=== PATIENT | female | born 1950 | race Hispanic/Latino ===

== ENCOUNTER 2018-07-24 11:49 | Emergency (ER) | payer BC, OTHER ==
--- NOTE | 2018-07-24 12:47 | RAD REPORT ---
EXAM DESCRIPTION: CT - Head Brain Wo Cont - 07/24/2018 12:32 pm CLINICAL HISTORY: general weakness Drowsiness COMPARISON: No comparisons TECHNIQUE: All CT scans are performed using dose optimization technique as appropriate and may inclu de automated exposure control or mA/KV adjustment according to patient size. FINDINGS: No intracranial hemorrhage, hydrocephalus or extra-axial fluid collection.Mild generalized brain atrophy is present with mild periventricular and deep white matter chronic microvascular ische maura changes.No areas of brain edema or evidence of midline shift. The paranasal sinuses and mastoids are clear. The calvarium is intact. Vertebral arteries are calcifi ed. IMPRESSION: No acute intracranial abnormality.
--- NOTE | 2018-07-24 12:57 | RAD REPORT ---
EXAM DESCRIPTION: RAD - Chest Single View - 07/24/2018 12:52 pm CLINICAL HISTORY: general weakness Chest pain. COMPARISON: Chest Single View dated 09/09/2017; Chest Single View dated 09/06/2017; Chest Single Vie w dated 09/04/2017; Chest Single View dated 03/16/2016 FINDINGS: Portable technique limits examination quality. The lungs are grossly clear. The heart is normal in size. No displaced fractures. IMPRESSION: No acute intrathoracic process suspected.
[2018-07-24 13:25] LABS: Absolute Lymphocytes (CBC) 3.3 K/uL (0.7-4.9); Absolute Monocytes 0.8 K/uL (0.1-1.3); Absolute Neutrophil 4.5 K/uL (1.8-8.0); Basophils % 0.7 % (0-1.3); Eosinophils % 4.3 % (0-4.4); Hematocrit 36.4 % (36.0-45.0); Lymphocytes % 36.3 % (15.3-44.8); MCH 32.3 pg (27.0-35.0); MCV 94.5 fL (80-100); MPV 7.7 fL (7.6-11.3); Monocytes % 8.5 % (3.3-12.3); RBC Red Blood Cell Count 3.85 M/uL (3.86-4.86)
[2018-07-24 13:29] LABS: Protime INR 1.03
[2018-07-24 13:57] LABS: ALT/SGPT 26 U/L (12-78); AST/SGOT 24 U/L (15-37); Albumin 3.4 g/dL (3.4-5.0); Alkaline Phosphatase 155 U/L (45-117); BUN Blood Urea Nitrogen 41 mg/dL (7-18); Bicarbonate 22 mmol/L (21-32); Bilirubin Direct 0.1 mg/dL (0-0.2); Bilirubin Total 0.4 mg/dL (0.2-1.0); Creatine Phosphokinase 100 U/L (26-192); Glucose Level 123 mg/dL (74-106); Magnesium 2.5 mg/dL (1.8-2.4); NT PRO-BNP 570 pg/mL (<125); Potassium 5.1 mmol/L (3.5-5.1); Protein, Total 8.4 g/dL (6.4-8.2); Sodium Level 140 mmol/L (136-145); Troponin (Emerg Dept Use Only) < 0.02 ng/mL (0.0-0.045)
[2018-07-24] MEDS ORDERED: NA CHLORIDE 0.9% 1,000 ML ONE (15:25)
[2018-07-24 15:44] LABS: Urine Blood NEGATIVE (NEG); Urine Glucose NEGATIVE (NEG); Urine Protein 2+ (NEG); Urine pH 5.5 (5.0-7.0)
[2018-07-24 17:20] LABS: Urine Bacteria <20 /HPF (<20); Urine Culture Reflex Order NOT NEEDED; Urine RBC <5 /HPF (NONE SEEN)
--- NOTE | 2018-07-24 19:11 | EKG ---
Test Date: 2018-07-24 Test Time: 12:46:04 Content Manager: BEV MEASUREMENT RESULTS: Intervals: Rate: 86 NV: 154 QRSD: 78 QT: 376 QTc: 449 [place]: P: 45 NV: 154 QRS: -16 T: 68 INTERPRETIVE STATEMENTS: Normal sinus rhythm Minimal voltage criteria for LVH, may be normal variant Borderline ECG Compared to ECG 09/04/2017 12:33:21 Left ventricular hypertrophy now present Sinus tachycardia no longer present Ventricular premature complex(es) no longer present ST (T wave) deviation no longer present Electronically Signed On 07-24-18 19:10:00 CDT by Horace Walker
--- NOTE | 2018-07-24 19:33 | RAD REPORT ---
EXAM DESCRIPTION: MRI - Brain Wo Cont - 07/24/2018 6:56 pm CLINICAL HISTORY: Weakness, unsteady gait, stroke-like symptoms COMPARISON: CT head same date TECHNIQUE: Sagittal T1-weighted images were obtained along with axial PD, heavily T2-weighted and T2 -FLAIR images. Axial DWI and ADC mapping sequences were also obtained along with coronal heavily T2-w eighted images. FINDINGS: No intracranial hemorrhage, mass or acute infarction. There is no edema or shift of midlin e structures. Mild atrophy and mild chronic ischemic changes are present. Ventricular size is in prop ortion to volume loss. Rios-matter/white matter junction is preserved. Signal voids are seen as a nor mal finding in the major intracranial vessels. No globe or orbital content abnormality. Mastoid air cells and paranasal sinuses are clear. IMPRESSION: No acute infarction. No acute intracranial finding. Mild atrophy and chronic ischemic change.
--- NOTE | 2018-07-24 20:06 | ER ---
Nurse's Notes [facility] Name: Bettina Muniz Age: 68 yrs Sex: Female : 1950 Arrival Date: 07/24/2018 Time: 11:51 Bed 8 Private MD: Out, [facility] Diagnosis: Dizziness Presentation: 07/24 11:54 Presenting complaint: Child states: woke up this morning diaphoretic, and dizzy. sv Daughter reports that she is also having generalized weakness. Transition of care: patient was not received from another setting of care. Onset of symptoms was July 24, 2018. Care prior to arrival: None. 11:54 Method Of Arrival: Wheelchair sv 11:54 Acuity: DHRUV 3 sv 12:00 Risk Assessment: Do you want to hurt yourself or someone else? Patient reports no hb desire to harm self or others. Initial Sepsis Screen: Does the patient meet any 2 criteria? No. Patient's initial sepsis screen is negative. Does the patient have a suspected source of infection? No. Patient's initial sepsis screen is negative. Historical: - Allergies: 11:55 No Known Allergies; sv - PMHx: 11:55 Diabetes - NIDDM; diabetic foot ulcer; Hypertension; sv - PSHx: 11:55 Cholecystectomy; Appendectomy; toe amputation; sv - Immunization history:: Adult Immunizations up to date. - Social history:: Smoking status: Patient/guardian denies using tobacco. - Ebola Screening: : No symptoms or risks identified at this time. Screenin:30 Abuse screen: Denies threats or abuse. Denies injuries from another. Nutritional hb screening: No deficits noted. Tuberculosis screening: No symptoms or risk factors identified. Fall Risk Total Max Fall Scale indicates High Risk Score (45 or more points). Fall prevention measures have been instituted. Side Rails Up X 2 Frequent Obs/Assessments Occuring Family Present and informed to notify staff if the need to leave the bedside As available patient and family educated on Fall Prevention Program and Strategies. Assessment: 12:32 General: Appears in no apparent distress. Behavior is calm, cooperative. Pain: Denies hb pain. Neuro: Level of Consciousness is awake, alert, obeys commands, Oriented to person, place, time, situation, Travel Med Surg Rn are equal bilaterally Moves all extremities. Full function Gait is unsteady, Speech is normal, Facial symmetry appears normal, Pupils are PERRLA, Intact. Cardiovascular: Heart tones S1 S2 present Capillary refill < 3 seconds is > 3 seconds Patient's skin is warm and dry. Respiratory: Airway is patent Trachea midline Respiratory effort is even, unlabored, Respiratory pattern is regular, symmetrical, Breath sounds are clear bilaterally. GI: No signs and/or symptoms were reported involving the gastrointestinal system. : No signs and/or symptoms were reported regarding the genitourinary system. EENT: No signs and/or symptoms were reported regarding the EENT system. Derm: No signs and/or symptoms reported regarding the dermatologic system. Skin is intact, is healthy with good turgor. Musculoskeletal: No signs and/or symptoms reported regarding the musculoskeletal system. 12:48 Patient has been NPO before screening. The patient is alert, and able to follow commands. The patient does not exhibit slurred or garbled speech. The patient is not exhibiting difficulty speaking. The patient does not exhibit difficulty understanding words. The patient is able to swallow own secretions with no drooling or need for suction. Patient tolerated one teaspoon of water. No drooling, immediate coughing, gurgling, or clearing of the throat was noted. The patient tolerated 90mL of water. No drooling, immediate coughing, gurgling, or clearing of the throat was noted. The patient passed the bedside swallow screening. Oral medications may be given as ordered. Contact Physician for further diet orders. Provider notified of bedside swallow screening results: Octavio DOCKERY. 13:30 Reassessment: Patient appears in no apparent distress at this time. No changes from hb previously documented assessment. Patient and/or family updated on plan of care and expected duration. Pain level reassessed. Patient is alert, oriented x 3, equal unlabored respirations, skin warm/dry/pink. 13:44 Reassessment: Daughter Mitra [phone]. 14:30 Reassessment: Patient appears in no apparent distress at this time. No changes from hb previously documented assessment. Patient and/or family updated on plan of care and expected duration. Pain level reassessed. Patient is alert, oriented x 3, equal unlabored respirations, skin warm/dry/pink. 15:30 Reassessment: Patient appears in no apparent distress at this time. No changes from hb previously documented assessment. Patient and/or family updated on plan of care and expected duration. Pain level reassessed. Patient is alert, oriented x 3, equal unlabored respirations, skin warm/dry/pink. 16:30 Reassessment: Patient appears in no apparent distress at this time. No changes from hb previously documented assessment. Patient and/or family updated on plan of care and expected duration. Pain level reassessed. Patient is alert, oriented x 3, equal unlabored respirations, skin warm/dry/pink. 17:30 Reassessment: Patient appears in no apparent distress at this time. No changes from hb previously documented assessment. Patient and/or family updated on plan of care and expected duration. Pain level reassessed. Patient is alert, oriented x 3, equal unlabored respirations, skin warm/dry/pink. 18:30 Reassessment: Patient appears in no apparent distress at this time. No changes from hb previously documented assessment. Patient and/or family updated on plan of care and expected duration. Pain level reassessed. Patient is alert, oriented x 3, equal unlabored respirations, skin warm/dry/pink. Vital Signs: 11:55 BP 154 / 75; Pulse 92; Resp 18; Temp 97.5; Pulse Ox 97% ; Weight 83.91 kg; Height 5 ft. sv 2 in. (157.48 cm); 15:20 BP 159 / 79 Supine; Pulse 80; Pulse Ox 99% on R/A; sg 15:28 BP 159 / 82 Standing; Pulse 82; Pulse Ox 99% on R/A; sg 16:30 BP 156 / 76; Pulse 76; Resp 15; Pulse Ox 100% on R/A; hb 17:30 BP 146 / 68; Pulse 78; Resp 16; Pulse Ox 100% ; hb 19:52 BP 156 / 74; Pulse 80; Resp 16; Temp 98.2(O); Pulse Ox 100% on R/A; Pain 0/10; ak1 11:55 Body Mass Index 33.84 (83.91 kg, 157.48 cm) sv 19:52 pt is hungry and requesting tacos per family at bedside. ak1 NIH Stroke Scale Scores: 12:30 NIHSS Score: 0 hb ED Course: 11:51 Patient arrived in ED. sb2 11:51 Out, of [facility] is Private Physician. sb2 11:55 Triage completed. sv 11:56 Arm band placed on right wrist. sv 12:01 Octavio Deluna PA is PHCP. cp 12:01 Tiff De Paz MD is Attending Physician. cp 12:07 Juan Mehta, RN is Primary Nurse. sg 12:30 Patient has correct armband on for positive identification. Placed in gown. Bed in low hb position. Call light in reach. Side rails up X2. 12:31 CT completed. Patient tolerated procedure well. Patient moved to CT via stretcher. jg6 Patient moved back from CT. 12:33 CT Head Brain wo Cont In Process Unspecified. EDMS 12:50 X-ray completed. Portable x-ray completed in exam room. Patient tolerated procedure la2 well. 12:52 XRAY Chest (1 view) In Process Unspecified. EDMS 12:58 EKG done, by registered respiratory technician. reviewed by Octavio DOCKERY. at1 13:14 Inserted saline lock: 20 gauge in right hand, using aseptic technique. em1 13:15 Initial lab(s) drawn, by laboratory associate, sent to lab. em1 18:10 Patient moved to MRI via wheelchair. ka 18:26 PHCP role handed off by Octavio Deluna PA jr8 18:26 Indio Sanchez PA is PHCP. jr8 18:50 MRI - Brain Wo Cont In Process Unspecified. EDMS 18:55 MRI completed. Patient tolerated well. Patient moved back from MRI. ka 19:39 No provider procedures requiring assistance completed. ak1 20:05 Joey Cox MD is Referral Physician. jr8 20:18 Primary Nurse role handed off by Juan Mehta, SONNY rg2 20:18 Cinthya Colvin, SONNY is Primary Nurse. ak1 20:19 IV discontinued, intact, bleeding controlled, No redness/swelling at site. Pressure ak1 dressing applied. Administered Medications: 15:10 Drug: NS 0.9% 250 ml Route: IV; Rate: bolus; Site: right hand; sg 20:06 Follow up: IV Status: Completed infusion ak1 15:28 Drug: NS 0.9% 1000 ml Route: IV; Rate: 100 ml/hr; Site: right hand; sg 20:06 Follow up: IV Status: Completed infusion ak1 Point of Care Testing: Blood Glucose: 12:00 Blood Glucose: 141 mg/dL; sv Ranges: Outcome: 20:05 Discharge ordered by MD. mendoza 20:05 Condition: improved ak1 20:19 Discharged to home via wheelchair, with family. ak1 20:19 Discharge instructions given to patient, family, Instructed on discharge instructions, follow up and referral plans. no drinking with medication, no driving heavy equipment, medication usage, Demonstrated understanding of instructions, follow-up care, medications, Prescriptions given X 1. 20:20 Patient left the ED. ak1 NIH Stroke Scale - NIH Stroke Score Date: 07/24/2018 Time: 12:30 Total Score = 0 1a. Level of Consciousness (LOC) - 0(Alert) 1b. Level of Consciousness (LOC) (Year \T\ Age) - 0(Both) 1c. LOC Commands (Open \T\ Closes Eyes/Sludge Filtration Attendant) - 0(Both) 2. Best Gaze (Lateral Gaze Paresis) - 0(Normal) 3. Visual Field Loss - 0(No visual loss) 4. Facial Palsy - 0(Normal) 5a. Left Arm: Motor (10-second hold) - 0(No drift) 5b. Right Arm: Motor (10-second hold) - 0(No drift) 6a. Left Leg: Motor (5-second hold - always test supine) - 0(No drift) 6b. Right Leg: Motor (5-second hold - always test supine) - 0(No drift) 7. Limb Ataxia (finger/nose \T\ heel/peraza - test with eyes open) - 0(Absent) 8. Sensory Loss (pinprick arms/legs/face) - 0(Normal) 9. Best Language: Aphasia (description/naming/reading) - 0(No aphasia) 10. Dysarthria (speech clarity - read or repeat words) - 0(Normal) 11. Extinction and Inattention (visual/tactile/auditory/spatial/personal) - 0(No abnormality) Initials: hb Signatures: Dispatcher [employer] EDAdin Tim2 Marcelina Call RN RN sv Gay, Steven, RN RN sg Martinez, Eric em1 Indio Sanchez PA PA jr8 Francisca Dawson, area captain EKG Tat1 Cinthya Colvin RN RN ak1 Octavio Deluna PA PA cp Aguilera, Katelyn ka Baxter, Heather, RN RN hb Margareth Brunner la2 Julianne Barrios sb2 Becky Sol jg6 Corrections: (The following items were deleted from the chart) 15: 15:17 Reassessment: hb hb 15:32 15:20 BP 159 / 82 Standing; Pulse 82bpm; Pulse Ox 99% RA; sg sg 15:32 15:28 BP 159 / 79; Pulse 80bpm; Pulse Ox 99% RA; sg sg
--- NOTE | 2018-07-24 20:06 | EDPHYS ---
Physician Documentation [facility] Name: Bettina Muniz Age: 68 yrs Sex: Female : 1950 Arrival Date: 07/24/2018 Time: 11:51 Bed 8 Private MD: Out, [facility] ED Physician Tiff De Paz HPI: 07/24 12:18 This 68 yrs old Female presents to ER via Wheelchair with complaints of cp General Weakness. 12:18 The patient presents to the emergency department with weakness of the entire body, cp generalized weakness. Onset: The symptoms/episode began/occurred this morning. 12:20 Associated signs and symptoms: Pertinent positives: dizziness, elevated blood glucose. cp Historical: - Allergies: 11:55 No Known Allergies; sv - PMHx: 11:55 Diabetes - NIDDM; diabetic foot ulcer; Hypertension; sv - PSHx: 11:55 Cholecystectomy; Appendectomy; toe amputation; sv - Immunization history:: Adult Immunizations up to date. - Social history:: Smoking status: Patient/guardian denies using tobacco. - Ebola Screening: : No symptoms or risks identified at this time. ROS: 12:25 Constitutional: Positive for chills, Negative for body aches, fever, poor PO intake. cp 12:25 Eyes: Negative for injury, pain, redness, and discharge. cp Exam: 12:28 Constitutional: The patient appears in no acute distress, alert, awake, comfortable, cp non-diaphoretic, non-toxic, well developed, well nourished. 12:28 Head/Face: Normocephalic, atraumatic. cp 12:28 Eyes: Periorbital structures: appear normal, Pupils: equal, round, and reactive to light and accomodation, Extraocular movements: intact throughout, Conjunctiva: normal, no exudate, no injection, Sclera: no appreciated abnormality, Lids and lashes: appear normal, bilaterally. 12:28 ENT: External ear(s): are unremarkable, Ear canal(s): are normal, clear, TM's: bulging, is not appreciated, bilaterally, erythema, is not appreciated, bilaterally, Nose: is normal, Mouth: Lips: moist, Oral mucosa: pink and intact, moist, Posterior pharynx: is normal, airway is patent, no erythema, no exudate. 12:28 Neck: ROM/movement: is normal, is supple, without pain, no range of motions limitations, no meningismus, no nuchal rigidity. 12:28 Chest/axilla: Inspection: normal, Palpation: is normal, no crepitus, no tenderness. 12:28 Cardiovascular: Rate: normal, Rhythm: regular, Pulses: Pulses are 2+ in right radial artery and left radial artery. Heart sounds: murmur, not appreciated, rub, not appreciated, gallop, not appreciated, Edema: is not appreciated. 12:28 Respiratory: the patient does not display signs of respiratory distress, Respirations: normal, no use of accessory muscles, no retractions, no splinting, no tachypnea, labored breathing, is not present, Breath sounds: are clear throughout, no decreased breath sounds, no stridor, no wheezing. 12:28 Abdomen/GI: Inspection: abdomen appears normal, Bowel sounds: active, all quadrants, Palpation: abdomen is soft and non-tender, in all quadrants. 12:28 Back: pain, is absent, ROM is normal. 12:28 Musculoskeletal/extremity: Exam is negative for calf tenderness, decreased range of motion, injury. 12:28 Skin: cellulitis, is not appreciated, no rash present. 12:28 Neuro: Orientation: to person, place \T\ time. Mentation: lucid, able to follow commands, Cerebellar function: Romberg testing is negative, normal finger to nose testing, Motor: moves all fours, general weakness w/o focal deficits, Sensation: no obvious gross deficits. 12:54 ECG was reviewed by the Attending Physician. cp Vital Signs: 11:55 BP 154 / 75; Pulse 92; Resp 18; Temp 97.5; Pulse Ox 97% ; Weight 83.91 kg; Height 5 ft. sv 2 in. (157.48 cm); 15:20 BP 159 / 79 Supine; Pulse 80; Pulse Ox 99% on R/A; sg 15:28 BP 159 / 82 Standing; Pulse 82; Pulse Ox 99% on R/A; sg 16:30 BP 156 / 76; Pulse 76; Resp 15; Pulse Ox 100% on R/A; hb 17:30 BP 146 / 68; Pulse 78; Resp 16; Pulse Ox 100% ; hb 19:52 BP 156 / 74; Pulse 80; Resp 16; Temp 98.2(O); Pulse Ox 100% on R/A; Pain 0/10; ak1 11:55 Body Mass Index 33.84 (83.91 kg, 157.48 cm) sv 19:52 pt is hungry and requesting tacos per family at bedside. ak1 NIH Stroke Scale Scores: 12:30 NIHSS Score: 0 hb MDM: 12:11 Patient medically screened. cp 15:42 Physician consultation: Devika Lozano MD was called at 15:35, regarding admission, left message on voicemail. 19:44 Data reviewed: vital signs, nurses notes, lab test result(s), EKG, radiologic studies, jr8 CT scan, MRI, plain films. Data interpreted: Pulse oximetry: on room air is 100 %. Interpretation: normal. Counseling: I had a detailed discussion with the patient and/or guardian regarding: the historical points, exam findings, and any diagnostic results supporting the discharge/admit diagnosis, lab results, radiology results, the need for outpatient follow up, a neurologist, to return to the emergency department if symptoms worsen or persist or if there are any questions or concerns that arise at home. 20:03 ED course: Octavio Deluna PA-C spoke with Dr. Lozano earlier. Requested MRI. If no stroke jr8 wants patient to go home. Dr. Lozano talked to [employer] and will have Home Health come and evaluate her tomorrow. MRI is now back. No acute stroke. Patient otherwise hemodynamically stable. Will go home on antivert. If worse to come back for further evaluation . 07/24 12:03 Order name: Glucose, Ancillary Testing; Complete Time: 12:12 EDMS 07/24 12:12 Interpretation: GLUC,ANCIL 141; Reviewed. 07/24 12:20 Order name: Basic Metabolic Panel; Complete Time: 14:36 07/24 14:36 Interpretation: Normal except: CL 113; GLUC 123; BUN 41; GFR 17; CRE 2.70. 07/24 12:20 Order name: CBC with Diff; Complete Time: 13:36 cp 07/24 13:37 Interpretation: Normal except: RBC 3.85. cp 07/24 12:20 Order name: Ckmb; Complete Time: 14:36 cp 07/24 12:20 Order name: CPK; Complete Time: 14:36 07/24 12:20 Order name: LFT's; Complete Time: 14:36 07/24 14:36 Interpretation: Normal except: ALK 155; TP 8.4; GLOB 5.0; A/G 0.7. / 12:20 Order name: Magnesium; Complete Time: 14:36 cp 07/24 12:20 Order name: NT PRO-BNP; Complete Time: 14:36 07/24 14:36 Interpretation: Abnormal: NT PRO-BNP 570. 07/24 12:20 Order name: PT-INR; Complete Time: 13:36 cp 07/24 12:20 Order name: Ptt, Activated; Complete Time: 13:36 07/24 12:20 Order name: Troponin (emerg Dept Use Only); Complete Time: 14:36 07/24 12:20 Order name: XRAY Chest (1 view); Complete Time: 13:36 07/24 13:43 Interpretation: Report review. 07/24 12:20 Order name: Urine Microscopic Only; Complete Time: 17:42 cp 07/24 17:42 Interpretation: Reviewed. 07/24 15:23 Order name: Urine Dipstick--Ancillary (enter results); Complete Time: 17:42 07/24 17:42 Interpretation: Normal except: UPROT 2+. 07/24 12:20 Order name: EKG; Complete Time: 12:21 cp 07/24 12:20 Order name: Cardiac monitoring; Complete Time: 12:27 07/24 12:20 Order name: EKG - Nurse/Tech; Complete Time: 13:15 07/24 12:20 Order name: IV Saline Lock; Complete Time: 13:15 cp 07/24 12:20 Order name: Labs collected and sent; Complete Time: 13:15 07/24 12:20 Order name: O2 Per Protocol; Complete Time: 12:27 07/24 12:20 Order name: O2 Sat Monitoring; Complete Time: 12:27 07/24 12:20 Order name: Urine Dipstick-Ancillary (obtain specimen); Complete Time: 16:56 cp 07/24 12:20 Order name: Orthostatics; Complete Time: 14:54 07/24 12:20 Order name: CT Head Brain wo Cont; Complete Time: 13:36 09/12 13:37 Interpretation: Report reviewed. cp 07/24 16:10 Order name: MRI - Brain Wo Cont; Complete Time: 19:42 cp EC:54 Rate is 86 beats/min. Rhythm is regular. [place] interval is normal. QRS interval is normal. cp QT interval is normal. No ST changes noted. Interpreted by me. Reviewed by me. Administered Medications: 15:10 Drug: NS 0.9% 250 ml Route: IV; Rate: bolus; Site: right hand; sg 20:06 Follow up: IV Status: Completed infusion ak1 15:28 Drug: NS 0.9% 1000 ml Route: IV; Rate: 100 ml/hr; Site: right hand; sg 20:06 Follow up: IV Status: Completed infusion ak1 Point of Care Testing: Blood Glucose: 12:00 Blood Glucose: 141 mg/dL; sv Ranges: Critical Glucose Levels:Adult <50 mg/dl or >400 mg/dl <40 mg/dl or >180 mg/dl Disposition: 07/24/18 20:05 Discharged to Home. Impression: Dizziness. - Condition is Stable. - Discharge Instructions: Dizziness. - Prescriptions for Antivert 25 mg Oral Tablet - take 1 tablet by ORAL route every 8 hours As needed; 20 tablet. - Medication Reconciliation Form, Thank You Letter, Antibiotic Education, Prescription Opioid Use form. - Follow up: Joey Cox MD; When: 2 - 3 days; Reason: Recheck today's complaints, Continuance of care, Re-evaluation by your physician. - Problem is new. - Symptoms have improved. NIH Stroke Scale - NIH Stroke Score Date: 07/24/2018 Time: 12:30 Total Score = 0 1a. Level of Consciousness (LOC) - 0(Alert) 1b. Level of Consciousness (LOC) (Year \T\ Age) - 0(Both) 1c. LOC Commands (Open \T\ Closes Eyes/Atm Mechanic) - 0(Both) 2. Best Gaze (Lateral Gaze Paresis) - 0(Normal) 3. Visual Field Loss - 0(No visual loss) 4. Facial Palsy - 0(Normal) 5a. Left Arm: Motor (10-second hold) - 0(No drift) 5b. Right Arm: Motor (10-second hold) - 0(No drift) 6a. Left Leg: Motor (5-second hold - always test supine) - 0(No drift) 6b. Right Leg: Motor (5-second hold - always test supine) - 0(No drift) 7. Limb Ataxia (finger/nose \T\ heel/peraza - test with eyes open) - 0(Absent) 8. Sensory Loss (pinprick arms/legs/face) - 0(Normal) 9. Best Language: Aphasia (description/naming/reading) - 0(No aphasia) 10. Dysarthria (speech clarity - read or repeat words) - 0(Normal) 11. Extinction and Inattention (visual/tactile/auditory/spatial/personal) - 0(No abnormality) Initials: hb Addendum: 07/28/2018 18:23 Co-signature as Attending Physician, Tiff De Paz MD. ma2 Signatures: Dispatcher [employer] Marcelina Cameron RN Juan Lee RN RN sg Roszak, Josh, PA PA jr8 Cinthya Colvin RN RN ak1 Octavio Deluna PA PA cp Alzahri, Mohammad, MD MD ma2 Corrections: (The following items were deleted from the chart) 07/24 16:56 13:44 [place] ordered. [facility] 20:20 20:05 07/24/2018 20:05 Discharged to Home. Impression: Dizziness. Condition is ak1 Stable. Forms are Medication Reconciliation Form, Thank You Letter, Antibiotic Education, Prescription Opioid Use. Follow up: Joey Cox; When: 2 - 3 days; Reason: Recheck today's complaints, Continuance of care, Re-evaluation by your physician. Problem is new. Symptoms have improved. jr8
[2018-07-24 20:38] VITALS: O2SAT 100
[2018-07-24 20:41] VITALS: BP 156/74; TEMP 98.2
== END 2018-07-24 20:20 | disposition home or self-care (01) ==
LOC: ER 11:49
DX: R42 Dizziness and giddiness (principal); I10 Essential (primary) hypertension
CPT/HCPCS: 36415; 70450; 70551; 71045; 80048; 80076; 82550; 82553; 82962; 83735; 83880; 84484; 85025; 85610; 85730; 93005; J7030; 81003; 81015; 96360; 96361; 96365; 96366; 99284

== ENCOUNTER 2018-10-21 08:58 | Observation (INO) | payer OTHER ==
[2018-10-21 09:30] LABS: Absolute Lymphocytes (CBC) 2.3 K/uL (0.7-4.9); Absolute Monocytes 0.8 K/uL (0.1-1.3); Absolute Neutrophil 3.9 K/uL (1.8-8.0); Basophils % 1.1 % (0-1.3); Eosinophils % 5.7 % (0-4.4); Lymphocytes % 30.1 % (15.3-44.8); MCH 32.7 pg (27.0-35.0); MCV 96.2 fL (80-100); RBC Red Blood Cell Count 3.63 M/uL (3.86-4.86)
[2018-10-21 10:09] LABS: Potassium 4.6 mmol/L (3.5-5.1)
[2018-10-21] MEDS ORDERED: NA CHLORIDE 0.9% 500 ML ONE (11:03)
--- NOTE | 2018-10-21 11:35 | EKG ---
Test Date: 2018-10-21 Test Time: 09:07:52 Locum Tenens: BEV MEASUREMENT RESULTS: Intervals: Rate: 84 MA: 156 QRSD: 82 QT: 394 QTc: 465 Louise: P: 43 MA: 156 QRS: -14 T: 37 INTERPRETIVE STATEMENTS: Normal sinus rhythm Normal ECG No previous ECG available for comparison Electronically Signed On 10-21-18 11:34:14 MANAGER ADVANCED by Huber Díaz
--- NOTE | 2018-10-21 11:57 | EDPHYS ---
Physician Documentation [facility] Name: Angie Ibarra Age: 68 yrs Sex: Female : 1950 Arrival Date: 10/21/2018 Time: 09:01 Bed 2 Private MD: Out, [facility], [facility] ED Physician Adán Rodriguez HPI: 10/21 09:39 This 68 yrs old Female presents to ER via EMS with complaints of Low Blood rn Sugar. 09:39 The patient or guardian reports hypoglycemia, that was potentially precipitated by no rn particular event, with the patient's symptoms witnessed by no one. Onset: The symptoms/episode began/occurred this morning. Associated signs and symptoms: Pertinent positives: None. Pertinent negatives: anorexia, constipation, seizure activity, urinary incontinence. Current symptoms: In the emergency department the patient's symptoms have improved. The patient has experienced similar episodes in the past. EMS called out for low blood sugar, called 911 yesterday, refused transport because got better, happened again this AM, reports only takes metformin, taking meds, not eating/drinking much, no fever/chest pain/sob/abd pain/vomiting/diarrhea. . Historical: - Allergies: 09:10 No Known Allergies; sg - PMHx: 09:10 Diabetes - NIDDM; diabetic foot ulcer; Hypertension; sg - PSHx: 09:10 Cholecystectomy; Appendectomy; toe amputation; sg - Immunization history:: Adult Immunizations up to date. - Social history:: Smoking status: Patient/guardian denies using tobacco. - Ebola Screening: : Patient negative for fever greater than or equal to 101.5 degrees Fahrenheit, and additional compatible Ebola Virus Disease symptoms Patient denies exposure to infectious person Patient denies travel to an Ebola-affected area in the 21 days before illness onset No symptoms or risks identified at this time. - Family history:: not pertinent. - Hospitalizations: : No recent hospitalization is reported. ROS: 09:39 Constitutional: Negative for fever, chills, and weight loss, Eyes: Negative for injury, rn pain, redness, and discharge, Neck: Negative for injury, pain, and swelling, Cardiovascular: Negative for chest pain, palpitations, and edema, Respiratory: Negative for shortness of breath, cough, wheezing, and pleuritic chest pain, Abdomen/GI: Negative for abdominal pain, nausea, vomiting, diarrhea, and constipation, MS/Extremity: Negative for injury and deformity, Skin: Negative for injury, rash, and discoloration, Neuro: Negative for headache, weakness, numbness, tingling, and seizure. Exam: 09:39 Constitutional: This is a well developed, well nourished patient who is awake, alert, rn and in no acute distress. Head/Face: Normocephalic, atraumatic. ENT: dry MM Cardiovascular: Regular rate and rhythm. No JVD. No pulse deficits. Respiratory: Lungs have equal breath sounds bilaterally, clear to auscultation. No increased work of breathing, no retractions or nasal flaring. Abdomen/GI: soft, non-tender MS/ Extremity: Pulses equal, no cyanosis. Neurovascular intact. Full, normal range of motion. Equal circumference. Neuro: Awake and alert, GCS 15, oriented to person, place, time, and situation. Cranial nerves II-XII grossly intact. Motor strength 5/5 in all extremities. Sensory grossly intact. Cerebellar exam normal. Vital Signs: 09:08 BP 163 / 73; Pulse 84; Resp 17; Temp 97.7; Pulse Ox 100% on R/A; Weight 120.2 kg; sg Height 5 ft. 5 in. (165.10 cm); Pain 0/10; 10:23 BP 150 / 67; Pulse 80; Resp 17; Pulse Ox 98% on R/A; mh5 13:20 BP 135 / 68; Pulse 84; Resp 18; Pulse Ox 98% on R/A; mh5 09:08 Body Mass Index 44.10 (120.20 kg, 165.10 cm) sg MDM: 09:02 Patient medically screened. rn 10:41 Differential diagnosis: hypoglycemic episode. Data reviewed: vital signs, nurses notes, rn advanced test result(s), and as a result, I will continue to observe the patient. Counseling: I had a detailed discussion with the patient and/or guardian regarding: the historical points, exam findings, and any diagnostic results supporting the discharge/admit diagnosis, lab results. Response to treatment: the patient's symptoms have markedly improved after treatment, the patient's condition has returned to base line, the patient is now symptom free. ED course: Pt with normal glucose now, at baseline, daughter reports not eating/drinking much, only on metformin, recommend eating/drinking well and pcp f/u.. 10/21 09:08 Order name: CBC with Diff; Complete Time: 09:49 rn 10/21 09:08 Order name: Basic Metabolic Panel; Complete Time: 10:14 rn 10/21 10:59 Order name: Glucose, Ancillary Testing; Complete Time: 11:01 EDMS 10/21 10:59 Order name: Glucose, Ancillary Testing; Complete Time: 11:01 EDMS 10/21 14:21 Order name: Glucose; Complete Time: 15:23 sg 10/21 15:17 Order name: Urine Dipstick--Ancillary (enter results) eb 10/21 17:05 Order name: CBC with Automated Diff EDMS 10/21 17:05 Order name: CBC with Automated Diff EDMS 10/21 17:05 Order name: CBC with Automated Diff EDMS 10/21 17:05 Order name: CBC with Automated Diff EDMS 10/21 17:05 Order name: CBC with Automated Diff EDMS 10/21 17:05 Order name: Comprehensive Metabolic Panel EDDC 10/21 17:05 Order name: Comprehensive Metabolic Panel EDDC 10/21 17:05 Order name: Comprehensive Metabolic Panel EDDC 10/21 09:08 Order name: IV Start; Complete Time: 09:12 rn 10/21 09:08 Order name: EKG; Complete Time: 09:09 rn 10/21 10:20 Order name: Diet Ada 1800 Luke; Complete Time: 10:20 mh5 10/21 16:14 Order name: Diet Ada 2000 Luke; Complete Time: 16:14 sg 10/21 17:05 Order name: Comprehensive Metabolic Panel EDDC 10/21 17:05 Order name: Comprehensive Metabolic Panel EDDC 10/21 17:05 Order name: Blood Culture EDDC 10/21 17:05 Order name: Urine Culture EDMS 10/21 17:41 Order name: Urine Microscopic Only iw 10/21 18:19 Order name: Glucose, Ancillary Testing EDDC 10/21 18:19 Order name: Glucose, Ancillary Testing EDDC 10/21 18:19 Order name: Glucose, Ancillary Testing EDDC 10/21 18:20 Order name: Urine Microscopic Only EDMS 10/21 09:08 Order name: Glucose Level; Complete Time: 09:11 rn 10/21 09:08 Order name: PO challenge; Complete Time: 09:12 rn 10/21 09:08 Order name: EKG - Nurse/Tech; Complete Time: 09:11 rn Administered Medications: 11:00 Drug: NS 0.9% 500 ml Route: IV; Rate: bolus; Site: left antecubital; sg 11:34 Follow up: Response: No adverse reaction; IV Status: Completed infusion; IV Intake: sv 500ml 15:30 Drug: D50W 50 ml Route: IVP; Site: left antecubital; sg 15:56 Follow up: Response: No adverse reaction sg 15:45 Drug: D5-NS 1000 ml Route: IV; Rate: 125 ml/hr; Site: left antecubital; Point of Care Testing: Blood Glucose: 09:08 Blood Glucose: 115 mg/dL; sg 10:12 Blood Glucose: 122 mg/dL; mh5 13:00 Blood Glucose: 89 mg/dL; mh5 14:11 Blood Glucose: 63 mg/dL; mh5 Ranges: Critical Glucose Levels:Adult <50 mg/dl or >400 mg/dl <40 mg/dl or >180 mg/dl Disposition: 10/21/18 16:23 Hospitalization ordered by Keron Garcia for Inpatient Admission. Preliminary diagnosis are Hypoglycemia, unspecified, Dehydration. - Bed requested for Telemetry/MedSurg (observation). - Status is Inpatient Admission. sv - Condition is Stable. - Problem is new. - Symptoms have improved. UTI on Admission? No Signatures: Dispatcher [employer] EDMS Marcelina Call RN RN sv Woody, Diana, RN RN dw Gay, Steven, RN RN sg Williams, Irene, RN RN iw Nieto, Roman, MD MD rn Botello, Elizabeth eb Corrections: (The following items were deleted from the chart) 15:37 11:56 10/21/2018 11:56 Discharged to Home. Impression: Hypoglycemia, unspecified; rn Dehydration. Condition is Stable. Forms are Medication Reconciliation Form, Thank You Letter, Antibiotic Education, Prescription Opioid Use. Follow up: Private Physician; When: As needed; Reason: Recheck today's complaints, Re-evaluation by your physician. Problem is new. Symptoms have improved. rn 16:51 16:23 Hospitalization Ordered by Keron Garcia MD for Inpatient Admission. Preliminary eb diagnosis is Hypoglycemia, unspecified; Dehydration. Bed requested for Telemetry/MedSurg (observation). Status is Inpatient Admission. Condition is Stable. Problem is new. Symptoms have improved. UTI on Admission? No. rn 17:55 16:51 10/21/2018 16:23 Hospitalization Ordered by Keron Garcia MD for Inpatient dw Admission. Preliminary diagnosis is Hypoglycemia, unspecified; Dehydration. Bed requested for Telemetry/MedSurg (observation). Status is Inpatient Admission. Condition is Stable. Problem is new. Symptoms have improved. UTI on Admission? No. eb 18:24 17:55 10/21/2018 16:23 Hospitalization Ordered by Keron Garcia MD for Inpatient sv Admission. Preliminary diagnosis is Hypoglycemia, unspecified; Dehydration. Bed requested for Telemetry/MedSurg (observation). Status is Inpatient Admission. Condition is Stable. Problem is new. Symptoms have improved. UTI on Admission? No. dw
--- NOTE | 2018-10-21 11:57 | ER ---
Nurse's Notes [facility] Name: Angie Ibarra Age: 68 yrs Sex: Female : 1950 Arrival Date: 10/21/2018 Time: 09:01 Bed 2 Private MD: Out, [facility] Diagnosis: Hypoglycemia, unspecified;Dehydration Presentation: 10/21 09:02 Presenting complaint: EMS states: pt reported feeling dizzy and clammy at home, pt sg daughter called for EMS because blood sugars have been low, gave the pt OJ PO while waiting for EMS, EMS reports upon arrival FSBG of 31, administered glucose per EMS, recheck FSBG in route reported to be 51, no other complaints at this time. Transition of care: patient was not received from another setting of care. Onset of symptoms was October 21, 2018. Risk Assessment: Do you want to hurt yourself or someone else? Patient reports no desire to harm self or others. Initial Sepsis Screen: Does the patient meet any 2 criteria? No. Patient's initial sepsis screen is negative. Does the patient have a suspected source of infection? No. Patient's initial sepsis screen is negative. Care prior to arrival: Medication(s) given: oral glucose administered Glucose check: 31. 09:02 Method Of Arrival: EMS: [facility] sg 09:02 Acuity: DHRUV 2 sg Historical: - Allergies: 09:10 No Known Allergies; sg - PMHx: 09:10 Diabetes - NIDDM; diabetic foot ulcer; Hypertension; sg - PSHx: 09:10 Cholecystectomy; Appendectomy; toe amputation; sg - Immunization history:: Adult Immunizations up to date. - Social history:: Smoking status: Patient/guardian denies using tobacco. - Ebola Screening: : Patient negative for fever greater than or equal to 101.5 degrees Fahrenheit, and additional compatible Ebola Virus Disease symptoms Patient denies exposure to infectious person Patient denies travel to an Ebola-affected area in the 21 days before illness onset No symptoms or risks identified at this time. - Family history:: not pertinent. - Hospitalizations: : No recent hospitalization is reported. Screenin:25 Abuse screen: Denies threats or abuse. Denies injuries from another. Nutritional sg screening: No deficits noted. Tuberculosis screening: No symptoms or risk factors identified. Never had TB. Fall Risk None identified. Assessment: 10:25 General: Appears in no apparent distress. comfortable, well groomed, well developed, sg well nourished, Behavior is calm, cooperative, appropriate for age. Pain: Denies pain. Neuro: Level of Consciousness is awake, alert, obeys commands, Oriented to person, place, time, situation, Supervisor Liquid Yeast are equal bilaterally Moves all extremities. Full function Gait is steady, Speech is normal, Facial symmetry appears normal. Neuro: Reports dizziness. Cardiovascular: Capillary refill is brisk in bilateral fingers Patient's skin is warm and dry. Chest pain is denied. Respiratory: Airway is patent Respiratory effort is even, unlabored, Respiratory pattern is regular, symmetrical. GI: No signs and/or symptoms were reported involving the gastrointestinal system. : No signs and/or symptoms were reported regarding the genitourinary system. EENT: No signs and/or symptoms were reported regarding the EENT system. 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 Derm: Skin is intact, is healthy with good turgor, Skin is clammy, Skin is normal, Skin temperature is cool. Musculoskeletal: No signs and/or symptoms reported regarding the musculoskeletal system. 11:00 Reassessment: Patient appears in no apparent distress at this time. Patient and/or sg family updated on plan of care and expected duration. Pain level reassessed. Patient is alert, oriented x 3, equal unlabored respirations, skin warm/dry/pink. awaiting diet tray as ordered by ERP, pt tolerating PO liquids at this time Patient states feeling better. 12:14 Reassessment: Patient appears in no apparent distress at this time. pt given PO ADA sg diet, pt family assisting pt at this time, pt requires no assitance from staff at this time. 13:30 Reassessment: Patient appears in no apparent distress at this time. Patient and/or sg family updated on plan of care and expected duration. Pain level reassessed. Patient is alert, oriented x 3, equal unlabored respirations, skin warm/dry/pink. FSBG obtained, results reported to ERP, order received to provide a diet at this time. 14:30 Reassessment: Patient appears in no apparent distress at this time. Patient and/or sg family updated on plan of care and expected duration. Pain level reassessed. Patient is alert, oriented x 3, equal unlabored respirations, skin warm/dry/pink. pt tolerating PO fluids and food at this time, awaiting new orders, FSBG to be obtained prior to DC to home. 15:25 Reassessment: Patient appears in no apparent distress at this time. Serum glucose noted sg to be 57, ERP notified, orders received for IVP D50 1 amp, pt medicated see EMAR, pt IV fluids started, pt and pt family updated on the need for admit, pt family remains at bedside at this time. 15:52 Reassessment: Patient appears in no apparent distress at this time. Patient and/or sg family updated on plan of care and expected duration. Pain level reassessed. Patient is alert, oriented x 3, equal unlabored respirations, skin warm/dry/pink. IV medication started per ERP order Patient states feeling better. 18:11 Reassessment: Patient appears in no apparent distress at this time. Patient and/or iw family updated on plan of care and expected duration. Pain level reassessed. Report called to david RN per juan RN. Vital Signs: 09:08 BP 163 / 73; Pulse 84; Resp 17; Temp 97.7; Pulse Ox 100% on R/A; Weight 120.2 kg; sg Height 5 ft. 5 in. (165.10 cm); Pain 0/10; 10:23 BP 150 / 67; Pulse 80; Resp 17; Pulse Ox 98% on R/A; mh5 13:20 BP 135 / 68; Pulse 84; Resp 18; Pulse Ox 98% on R/A; mh5 09:08 Body Mass Index 44.10 (120.20 kg, 165.10 cm) ED Course: 09:01 Patient arrived in ED. sg 09:01 Out, [facility] is Private Physician. sg 09:02 Adán Rodriguez MD is Attending Physician. rn 09:08 Triage completed. sg 09:10 EKG done, by industrial service technician. reviewed by Adán Rodriguez MD. at1 09:11 Arm band placed on. sg 09:22 Initial lab(s) drawn, by mo, sent to lab. Inserted saline lock: 22 gauge. mh5 09:23 Basic Metabolic Panel Sent. mh5 09:23 CBC with Diff Sent. mh5 09:23 Patient has correct armband on for positive identification. Placed in gown. Bed in low mh5 position. Call light in reach. Side rails up X2. Adult w/ patient. Warm blanket given. Pulse ox on. NIBP on. 10:27 Juan Mehta, RN is Primary Nurse. sg 10:55 Inserted saline lock: 22 gauge in right antecubital area, using aseptic technique. sg 12:00 Diet: Patient given a diabetic meal tray. mh5 13:20 Diet: Patient given snack. 5 16:22 Keron Garcia MD is Hospitalizing Provider. rn Administered Medications: 11:00 Drug: NS 0.9% 500 ml Route: IV; Rate: bolus; Site: left antecubital; sg 11:34 Follow up: Response: No adverse reaction; IV Status: Completed infusion; IV Intake: sv 500ml 15:30 Drug: D50W 50 ml Route: IVP; Site: left antecubital; sg 15:56 Follow up: Response: No adverse reaction sg 15:45 Drug: D5-NS 1000 ml Route: IV; Rate: 125 ml/hr; Site: left antecubital; Point of Care Testing: Blood Glucose: 09:08 Blood Glucose: 115 mg/dL; sg 10:12 Blood Glucose: 122 mg/dL; mh5 13:00 Blood Glucose: 89 mg/dL; mh5 14:11 Blood Glucose: 63 mg/dL; mh5 Ranges: Intake: 11:34 IV: 500ml; Total: 500ml. sv Outcome: 11:56 Discharge ordered by . rn 16:23 Decision to Hospitalize by Provider. rn 18:24 Patient left the ED. sv Signatures: Marcelina Call RN RN sv Gay, Steven, Ledy Girard RN, RN RN iw Nieto, Roman, MD MD rn Gonzales, Amanda, single needle operator EKG Tat1 Angie Lauren Nakia Corrections: (The following items were deleted from the chart) 11:01 09:22 Patient did not have IV access during this emergency room visit. Pressure sg dressing applied, mh5 13:28 12:30 Diet: Patient given a diabetic meal tray. mh5 mh5
[2018-10-21] MEDS ORDERED: D50W 25 GM/50 ML SYRINGE IV ONE (15:12)
[2018-10-21] MEDS ORDERED: D5 0.9 NS 1,000 ML IV ONE (15:57)
[2018-10-21 16:43] LABS: Urine Blood 1+ (NEG); Urine Glucose NEGATIVE (NEG); Urine Protein 2+ (NEG); Urine pH 5.5 (5.0-7.0)
[2018-10-21] MEDS ORDERED: ACETAMINOPHEN 500 MG TAB PO PRN (17:01)
[2018-10-21] MEDS: D5W 1,000 ML IV SCH ×2 (18:00→21:49)
--- NOTE | 2018-10-21 18:16 | P.HP ---
Certification for Inpatient Patient admitted to: Observation With expected LOS: <2 Midnights Practitioner: I am a practitioner with admitting privileges, knowledge of patient current condition, hospital course, and medical plan of care. Services: Services provided to patient in accordance with Admission requirements found in Title 42 Section 412.3 of the Code of Federal Regulations Patient History Date of Service: 10/21/18 Reason for admission: Low blood sugar History of Present Illness: This is a 68-year-old female with history of non insulin-dependent diabetes mellitus, type 2, hypertension, hyperlipidemia, chronic kidney disease stage 3 admitted for low blood sugar. Per , around 3 o'clock in the morning prior to arrival they called the ambulance because the blood sugar was 37. EMS gave glucose and blood sugars responded well and therefore did they did not bring patient to the ER. A few hr later, blood sugars again dropped in the 30s , EMS was called again and they brought her to the ER. In the ED, she did receive D5 and sugar, again responded well but then dropped again prior to discharge. She will be admitted for further evaluation of blood sugars/ hypoglycemic episodes. She states that she was sweating a little bit earlier today, which is now resolved. She denies any chest pain, shortness of breath, nausea, vomiting, abdominal pain, diarrhea, constipation or any complaints. At the time of my exam, she was alert oriented x3 in no acute distress and she is eating her dinner without any concerns or complaints. Allergies No Known Allergies Allergy (Verified 09/04/17 17:39) Home Medications: Atorvastatin Calcium 1 tab PO DAILY 09/04/17 Dorzolamide HCl/Timolol Maleat [Dorzolamide-Timolol Eye Drops] 1 drop LEFT EYE BID 09/04/17 Aspirin [Aspirin EC 81 MG] 81 mg PO DAILY #90 tablet. 09/12/17 Collagenase [Santyl Ointment*] 1 appl TOP DAILY #1 tube 09/12/17 Furosemide [Lasix] 20 mg PO DAILY #30 tab 09/12/17 Hydralazine HCl [Apresoline] 100 mg PO BID #60 tablet 09/12/17 Insulin Detemir [Levemir*] 10 units SQ BEDTIME #1 ml 09/12/17 Sathish [Sathish*] 1 pkt PO BID #60 powd.pack 09/12/17 Metoprolol Tartrate [Lopressor*] 50 mg PO BID #60 tab 09/12/17 levoFLOXacin [Levaquin] 500 mg PO Q48H 42 Days #21 tab 09/12/17 traMADol HCL [Ultram*] 50 mg PO TIDP PRN #20 tab 09/12/17 - Past Medical/Surgical History Diabetic: Yes -: DIABETES -: HTN- CONTROLLED -: High cholesterol -: JESSE -: APPENDECTOMY - Social History Alcohol use: No CD- Drugs: No Caffeine use: Yes Review of Systems General: As per HPI Eyes: Unremarkable ENT: Unremarkable Respiratory: Unremarkable Cardiovascular: Unremarkable Gastrointestinal: Unremarkable Genitourinary: Unremarkable Musculoskeletal: Unremarkable Integumentary: Unremarkable Neurological: Unremarkable Lymphatics: Unremarkable Physical Examination - Physical Exam General: Alert, In no apparent distress, Oriented x3 HEENT: Atraumatic, PERRLA, Mucous membr. moist/pink, EOMI, Sclerae nonicteric Neck: Supple, 2+ carotid pulse no bruit, No LAD, Without JVD or thyroid abnormality Respiratory: Clear to auscultation bilaterally, Normal air movement Cardiovascular: Regular rate/rhythm, Normal S1 S2 Gastrointestinal: Normal bowel sounds, No tenderness Musculoskeletal: No tenderness Integumentary: No rashes Neurological: Normal gait, Normal speech, Normal strength at 5/5 x4 extr, Normal tone, Normal affect Lymphatics: No axilla or inguinal lymphadenopathy - Studies Laboratory Data (last 24 hrs) 10/21/18 14:20: Glucose 57 L 10/21/18 09:20: Sodium 142, Potassium 4.6, BUN 39 H, Creatinine 2.20 H, Glucose 92 10/21/18 09:20: WBC 7.5, Hgb 11.9 L, Hct 35.0 L, Plt Count 222 Assessment and Plan - Plan This is a 68-year-old female with: Hypoglycemic episodes Per patient, she only takes metformin at home. Does not take insulin or any other diabetes medications. She states that she has been eating and drinking well at home This could likely be secondary to a urinary tract infection Continue D5 drip, continue checking blood sugars every until 3 normal readings Check A1c and a C-peptide levels Urinary tract infection Urine cultures pending IV antibiotics with Rocephin Non insulin-dependent diabetes mellitus, type 2 Will hold metformin, though less likely that this is what's causing her hypoglycemic episodes Glucose checks as above. Will ordered sliding scale insulin as/if needed Essential Hypertension Stable in the ER, will restart home medications once they are reconciled Hyperlipidemia Continue home medications once reconciled Lipid profile ordered, pending Chronic kidney disease, stage III Creatinine seems to be at baseline. Will avoid nephrotoxic agents, continue to monitor via labs. DVT prophylaxis: Lovenox GI prophylaxis: Not needed Diet: 1800 calorie diabetic diet Disposition: Admit (OBS) to floor with tele. Continue to monitor, followup on labs and cultures. Likely discharge home in the next 24-48 hr - Advance Directives Does patient have a Living Will: No Does patient have a Durable POA for Healthcare: No Physician Review: Patient Assessed, Agree with Above Assessment and Plan Time Spent Managing Pts Care (In Minutes): 55
[2018-10-21 18:19] LABS: Urine Bacteria 20-50 /HPF (<20); Urine Culture Reflex Order REFLEXED; Urine Mucus 2+ /HPF (NONE SEEN); Urine RBC <5 /HPF (NONE SEEN)
[2018-10-21] MEDS: ENOXAPARIN 40 MG/0.4 ML SQ SCH (18:45)
[2018-10-21] MEDS ORDERED: GLUCAGON 1 MG/VIAL IM PRN (19:55)
[2018-10-21] MEDS ORDERED: D50W 25 GM/50 ML SYRINGE IV PRN (19:55)
[2018-10-21] MEDS: CEFTRIAXONE/SWI 1gm 1 GM/10 ML SYR IVP SCH (21:50)
[2018-10-21] MEDS ORDERED: PNEUMOCOCCAL VACCINE 0.5 ML IMVAC ONE (22:12)
[2018-10-21 22:59] VITALS: BMI 44.1
[2018-10-22 06:22] LABS: Absolute Lymphocytes (CBC) 3.3 K/uL (0.7-4.9); Absolute Monocytes 0.8 K/uL (0.1-1.3); Absolute Neutrophil 1.8 K/uL (1.8-8.0); Basophils % 1.1 % (0-1.3); Hematocrit 32.6 % (36.0-45.0); Lymphocytes % 50.4 % (15.3-44.8); MCH 32.4 pg (27.0-35.0); MPV 8.2 fL (7.6-11.3); Monocytes % 12.7 % (3.3-12.3); RBC Red Blood Cell Count 3.39 M/uL (3.86-4.86)
[2018-10-22] MEDS: D5W 1,000 ML IV SCH (06:31)
[2018-10-22 06:36] LABS: Albumin 2.8 g/dL (3.4-5.0); Bilirubin Total 0.2 mg/dL (0.2-1.0); Magnesium 1.7 mg/dL (1.8-2.4); Phosphorus 3.3 mg/dL (2.5-4.9); Potassium 4.7 mmol/L (3.5-5.1); Protein, Total 7.1 g/dL (6.4-8.2)
[2018-10-22] MEDS ORDERED: MAGNESIUM SULFATE 1 gm IVPB 1 GM/100 ML BAG IV ONE (07:00)
[2018-10-22 07:36] LABS: Blood Morphology Comment NOT SEEN (NOT SEEN); Platelet Estimate ADEQ
[2018-10-22] MEDS: CEFTRIAXONE/SWI 1gm 1 GM/10 ML SYR IVP SCH ×2 (09:00→20:27)
[2018-10-22] MEDS: ENOXAPARIN 40 MG/0.4 ML SQ SCH (09:19)
[2018-10-22] MEDS ORDERED: D5 0.2 NS 1,000 ML IV SCH (10:00)
[2018-10-22 11:03] LABS: Urine Protein/Creatinine Ratio 1.32 ratio (<0.15)
[2018-10-22] MEDS: D5 0.45 NS 1,000 ML IV SCH ×2 (14:00→23:10)
[2018-10-22] MEDS: HYDRALAZINE HCL 20 MG/ML VIAL IV PRN (16:55)
--- NOTE | 2018-10-22 17:36 | RAD REPORT ---
EXAM DESCRIPTION: US - Urinary Bladder - 10/22/2018 3:50 pm CLINICAL HISTORY: Pelvic pain, urinary retention COMPARISON: None. FINDINGS: No urinary bladder wall thickening or mass. No stone or intraluminal filling defect. Patient voided prior to the examination. A postvoid residual of 51 milliliters was calculated.
--- NOTE | 2018-10-22 17:38 | RAD REPORT ---
EXAM DESCRIPTION: US - Renal Ultrasound-Complete - 10/22/2018 3:50 pm CLINICAL HISTORY: Acute kidney injury COMPARISON: Renal ultrasound August 2017, CT imaging March 2016 FINDINGS: The right kidney measures 9.7 x 4.4 x 4.3 cm. The left kidney measures 9.8 x 4.8 x 4.0 cm . Renal cortical thickness is normal. Cortical echogenicity is increased. This is consistent with a m edical renal disease process. This matches the prior study. No hydronephrosis or suspicious renal mas s. Bladder is evaluated as a separately requested study. IMPRESSION: Medical renal disease is evident. No hydronephrosis or suspicious renal mass. No other significant findings.
--- NOTE | 2018-10-22 19:36 | CON ---
Date of Consultation: 10/22/2018 Additional Consulting Physician: Dr. Naheed More. Reason For Consultation: Elevated BUN and creatinine. History Of Present Illness: This is a pleasant 68-year-old female with significant past medical hist ory of diabetes since 2009, complicated with retinopathy status post laser, legally blind, neuropathy , status post toe amputation, peripheral vascular disease, hypertension, hyperlipidemia, chronic kidn ey disease. Baseline creatinine of 1.8 as by November 2017 and back in July her creatinine up to 2.7. GFR usually around 27, in July she down to 17. The patient apparently was brought to the hospital because of altered mental status and found to have hypoglycemia. Primary workup show eleva tion in BUN and creatinine. For that reason, we have been consulted. As by the family, the patient is not taking any nonsteroidal. No IV contrast. No recent hospitalization. No change in her home m edication. The patient denies any rash. No fever or chills. The patient after she was started on D 5. The patient more awake and blood pressure been stabilized. On admission, the patient creatinine was 2.2 and currently 2.3, GFR has been dropped to 21. Past Medical History: 1.Chronic kidney disease, stage 3 secondary to diabetes nephropathy, proteinuric, nonnephrotic range of proteinuria. Workup including SPEP and serology was negative before. Baseline creatinine of 1.7 -1.8 with GFR around 27. 2.Diabetes complicated with retinopathy and neuropathy and nephropathy, hypertension, hyperlipidemia , peripheral vascular disease. Allergies: NO KNOWN DRUG ALLERGIES. Past Surgical History: Include: 1.Toe amputation. 2.Cholecystectomy. 3.Appendectomy. Social History: Denies smoking. Denies drinking. Denies drug abuse. Family History: Positive for diabetes and hypertension. Review of Systems: Head and neck: The patient legally blind. GI: Has decreased intake. : No polyuria, no dysuria, no hematuria. Shorthand Reporter: No vaginal discharge. Respiratory: No shortness of breath. Cardiovascular: No leg swelling. Endocrine: No polydipsia. Skin: No rash. Neuro: Has neuropathy. Musculoskeletal: No joint pain. Medications: Home medications include lisinopril, glipizide, and atorvastatin. Current medications include ceftriaxone and Lovenox with IV fluid. Physical Examination: Vital Signs: When I saw the patient, blood pressure of 139/65, pulse of 83. Chest: Clear to auscultation. Heart: S1 and S2. Regular. Abdomen: Soft. Nontender. Extremities: Trace edema. Laboratory Data: Sodium 144, potassium 4.7, bicarb 19, BUN 40, creatinine 2.3. GFR of 21, calcium 8 .1, magnesium 1.7, albumin 2.8. PTH on previous admission of 8.7. WBC 6.5, H and H 11/32.6, platele ts of 198. Assessment And Plan: 1.Acute kidney injury secondary to prerenal superimposed with the LANCE inhibitor use. I am going to go ahead and change IV fluid to D5 half, we run it at 100 per hour. We will send for the workup incl uding renal ultrasound, protein and creatinine and we will follow up. I agree with holding LANCE inhib itor for the time being and we will follow up. 2.Hypertension. Currently, given the acute kidney injury, I am going to hold on LANCE inhibitor. 3.Hypoglycemia secondary to urinary tract infection, recover, resolved. We will follow up. 4.Urinary tract infection. Continue ceftriaxone. We will follow up culture. 5.Diabetes as by primary. MOHINDER/JLUIS Voice ID: [id number] Report ID: [id number]
--- NOTE | 2018-10-22 20:00 | PN ---
Date of Progress Note: 10/22/2018 Subjective: The patient seen and examined. Chart reviewed and case discussed with RN. The patient otherwise feels well and has no significant events overnight. Daughter is at the bedside. Code Status: Full. Medications: List reviewed. Physical Examination: Vital Signs: Temperature 98.5, heart rate 83, blood pressure 139/65, respirations 18, O2 97% on room air. General: Awake, alert, oriented x3, not in any acute distress, morbidly obese female, elderly. CV: S1 and S2. Regular rate and rhythm. No murmurs. Respiratory: Moving air well bilaterally. No wheezing or stridor. No use of accessory muscles. Gastrointestinal: Abdomen is soft, nontender, nondistended. Positive bowel sounds. No guarding or rigidity. Extremities: No clubbing, cyanosis, or edema. Neurologic: Nonfocal. Laboratory Data: Sodium 144, potassium 4.7, chloride 118, CO2 19, BUN 40, creatinine 2.3, glucose 68 . Hemoglobin A1c 6.1%. C-peptide level is pending. Calcium 8.1, phosphorus 3.3, magnesium 1.7, tri glycerides 47, cholesterol 81, LDL 28, HDL 44. WBC 6.5, H and H 11 and 32.6, platelets 198, neutroph ils 27%. Blood cultures pending. Urine culture growing out 4+ gram-negative rods. Assessment And Plan: A 68-year-old female with: 1.Hypoglycemic episode. The patient is diabetic, only takes metformin. Her hemoglobin A1c is 6.1%. Her appetite has been well. The patient was initially on D5W. Her blood glucose levels have been improving, still have some low blood sugar level around 67, likely secondary to acute kidney dysfunct ion and medication side effects. 2.Njzlu-yj-hlozeyh kidney disease stage 3. We will continue to monitor creatinine level. Creatinin e is slightly trending up. We will consult Nephrology. 3.Urinary tract infection secondary to gram-negative rods. We will follow up with culture results. 4.Diabetes mellitus type 2 zmi-zcpsbsb-nxbxlsxhj with hypoglycemia. A1c 6.1%. 5.Essential hypertension, stable. 6.Hyperlipidemia, stable. 7.Morbid obesity, stable. 8.Gastrointestinal and deep venous thrombosis prophylaxis, Lovenox. Plan: Continue to monitor blood glucose levels. Follow up with Nephrology recommendation. IV fluid s have been adjusted. Follow up on creatinine. We will resume home medications as appropriate. /MODL Voice ID: [id number] Report ID: [id number]
[2018-10-22] MEDS ORDERED: ATORVASTATIN 40 MG TAB PO SCH (21:00)
[2018-10-23] MEDS: D5 0.45 NS 1,000 ML IV SCH ×2 (00:06→09:38)
[2018-10-23] MEDS: HYDRALAZINE HCL 20 MG/ML VIAL IV PRN (04:51)
[2018-10-23 05:58] LABS: Absolute Lymphocytes (CBC) 3.3 K/uL (0.7-4.9); Absolute Monocytes 0.6 K/uL (0.1-1.3); Absolute Neutrophil 1.8 K/uL (1.8-8.0); Basophils % 0.9 % (0-1.3); Eosinophils % 7.9 % (0-4.4); MCV 96.1 fL (80-100); Monocytes % 10.1 % (3.3-12.3); RBC Red Blood Cell Count 3.23 M/uL (3.86-4.86)
[2018-10-23 06:26] LABS: Albumin 2.6 g/dL (3.4-5.0); Bilirubin Total 0.2 mg/dL (0.2-1.0); Magnesium 2.1 mg/dL (1.8-2.4); Phosphorus 3.6 mg/dL (2.5-4.9); Potassium 4.9 mmol/L (3.5-5.1); Protein, Total 6.2 g/dL (6.4-8.2); Thyroid Stimulating Hormone 0.577 uIU/mL (0.360-3.740)
[2018-10-23] MEDS: CEFTRIAXONE/SWI 1gm 1 GM/10 ML SYR IVP SCH (09:00)
[2018-10-23] MEDS ORDERED: ENOXAPARIN 30 MG/0.3 ML SQ SCH (09:00)
[2018-10-23 09:59] VITALS: O2SAT 98
[2018-10-23 10:13] VITALS: BP 132/60; TEMP 98.2
--- NOTE | 2018-10-24 07:41 | DS ---
Date of Discharge: 10/23/2018 Consultants: Dr. Zambrano with Nephrology. Admitting Diagnoses: 1.Hypoglycemic episode. 2.Acute cystitis without hematuria. 3.Non-insulin dependent diabetes type 2 with hypoglycemia. 4.Essential hypertension. 5.Mixed hyperlipidemia. 6.Acute on chronic kidney disease, stage 3. Discharge Diagnoses: 1.Hypoglycemic episode. 2.Acute on chronic kidney disease, stage 3. 3.Acute cystitis without hematuria, secondary to Escherichia coli. 4.Diabetes mellitus type 2, insulin requiring, with hypoglycemia. 5.Essential hypertension, stable. 6.Mixed hyperlipidemia. 7.Obesity, body mass index 32.4. Hospital Course: The patient is a 68-year-old female with past medical history of diabetes, hyperten tray, hyperlipidemia, chronic kidney disease, who was in her usual state of health until day of admis tray when she came in with low blood sugar at level of 37. The patient was started on D5W. The tashi ent does have history of chronic kidney disease; however, her creatinine was slightly elevated, indic ating an acute on chronic kidney injury. The patient was also seen by Nephrology. She was given IV fluids. Her creatinine improved slightly. Renal ultrasound showed medical renal disease. No hydron ephrosis. She did have incidental finding of UTI, secondary to Escherichia coli which was pansensiti ve. Her blood cultures remained negative to date. The patient was then doing well. Her blood gluco se levels had improved. The patient was then cleared for discharge and was sent home in a stable con dition. Activity: As tolerated. Medications: As per medication reconciliation list. The patient will no longer be on the glipizide and LANCE inhibitor will be held as well. Diet: Diabetic diet. Followup: Follow up with primary care physician in 2-3 days. Follow up with piping supervisor at [facility] [[email or web address]] as scheduled. Return to ER for worsening condition. The patient will have course of antibiotics for UTI. Physical Examination: General: Awake, alert, oriented, no acute distress. CV: S1, S2. No murmurs. Respiratory: Moving air well bilaterally. No wheezing. Gastrointestinal: Abdomen is soft, nontender, nondistended. Positive bowel sounds. Extremities: No clubbing, cyanosis, or edema. Neurologic: Nonfocal. SA/MODL Voice ID: [id number] Report ID: [id number]
== END 2018-10-23 09:58 | disposition home or self-care (01) ==
LOC: ER 08:58 → ERHOLD 17:07 → 2ND 18:12
PROVIDERS: ADMIT Family Medicine; ATTEND Family Medicine
DX: E11.649 Type 2 diabetes mellitus with hypoglycemia without coma (principal); N30.00 Acute cystitis without hematuria; B96.20 Unspecified Escherichia coli [E. coli] as the cause of diseases classified elsewhere; I12.9 Hypertensive chronic kidney disease with stage 1 through stage 4 chronic kidney disease, or unspecified chronic kidney disease; E11.22 Type 2 diabetes mellitus with diabetic chronic kidney disease; N18.3 Chronic kidney disease, stage 3 (moderate); N17.9 Acute kidney failure, unspecified; E78.2 Mixed hyperlipidemia; E66.9 Obesity, unspecified; Z68.32 Body mass index [BMI] 32.0-32.9, adult; I73.9 Peripheral vascular disease, unspecified; H54.8 Legal blindness, as defined in USA
CPT/HCPCS: 36415 ×2; 76770; 76857; 80048; 80053 ×2; 80061; 80069; 82553; 82570; 82947; 82962 ×32; 83036; 83735 ×2; 83970; 84100; 84156; 84443; 84681; 85025 ×3; 87040 ×2; 87077; 87086; 87088; 87186; 87205; 93005; 94760 ×5; 96361; 96374; 96375; 99284; G0378 ×2; J0360 ×2; J0696 ×3; J1650 ×3; J3475; 81003; 81015

== ENCOUNTER 2018-11-11 12:39 | Emergency (ER) | payer OTHER ==
[2018-11-11] MEDS ORDERED: D50W 25 GM/50 ML SYRINGE IV ONE (12:57)
[2018-11-11] MEDS ORDERED: NA CHLORIDE 0.9% 500 ML ONE (12:57)
[2018-11-11] MEDS ORDERED: GLUCAGON 1 MG/VIAL ONE (12:57)
[2018-11-11 13:11] LABS: Absolute Lymphocytes (CBC) 1.9 K/uL (0.7-4.9); Absolute Monocytes 0.6 K/uL (0.1-1.3); Absolute Neutrophil 2.8 K/uL (1.8-8.0); Basophils % 0.4 % (0-1.3); Eosinophils % 3.1 % (0-4.4); Hematocrit 37.1 % (36.0-45.0); MPV 7.9 fL (7.6-11.3); Monocytes % 10.5 % (3.3-12.3); RBC Red Blood Cell Count 3.87 M/uL (3.86-4.86)
[2018-11-11 13:32] LABS: Potassium 4.3 mmol/L (3.5-5.1)
--- OUTSIDE RECORDS SUMMARY | 2018-11-11 13:37 | XMS REPORT ---
:1950 [facility] [address] [place] [address] Dr. Alvarez [address] [place] [address] Care Team Providers Name Role Phone Unavailable Unavailable Unavailable Problems This patient has no known problems. Allergies, Adverse Reactions, Alerts This patient has no known allergies or adverse reactions. Medications This patient has no known medications.
--- NOTE | 2018-11-11 15:32 | EKG ---
Test Date: 2018-11-11 Test Time: 12:54:51 Core Cleaner: ROBERT MEASUREMENT RESULTS: Intervals: Rate: 93 WA: 162 QRSD: 80 QT: 386 QTc: 479 Hayden: P: 56 WA: 162 QRS: -10 T: 44 INTERPRETIVE STATEMENTS: Normal sinus rhythm Normal ECG Compared to ECG 10/21/2018 09:07:52 No significant changes Electronically Signed On 11-11-18 15:31:39 TELECOMMUNICATIONS CABLE JOINTER by Huber Díaz
--- NOTE | 2018-11-11 16:31 | ER ---
Nurse's Notes [facility] Name: Angie Ibarra Age: 68 yrs Sex: Female : 1950 Arrival Date: 11/11/2018 Time: 12:42 Bed 4 Private MD: Diagnosis: Hypoglycemia, unspecified;Dehydration Presentation: 11/11 13:01 Presenting complaint: EMS states: BGL 30s, bystanders gave her a candy bar and juice hb while waiting for EMS. One tube dextrose administered PUBLISHER ASSISTANT, BGL 43 during transit to ED. Transition of care: patient was not received from another setting of care. Onset of symptoms was November 11, 2018. Risk Assessment: Do you want to hurt yourself or someone else? Patient reports no desire to harm self or others. Care prior to arrival: None. 13:01 Method Of Arrival: EMS: [facility] hb 13:01 Acuity: DHRUV 2 hb 13:03 Initial Sepsis Screen: Does the patient meet any 2 criteria? No. Patient's initial hb sepsis screen is negative. Does the patient have a suspected source of infection? No. Patient's initial sepsis screen is negative. Historical: - Allergies: 13:00 No Known Allergies; hb - PMHx: 13:00 Diabetes - NIDDM; diabetic foot ulcer; Hypertension; hb - PSHx: 13:00 Cholecystectomy; Appendectomy; toe amputation; hb - Immunization history:: Adult Immunizations up to date. - Family history:: not pertinent. - Social history:: Smoking status: Patient/guardian denies using tobacco. - Ebola Screening: : No symptoms or risks identified at this time. - Hospitalizations: : No recent hospitalization is reported. Screenin:05 Abuse screen: Denies threats or abuse. Denies injuries from another. Nutritional hb screening: No deficits noted. Tuberculosis screening: No symptoms or risk factors identified. Fall Risk Total Max Fall Scale indicates High Risk Score (45 or more points). Fall prevention measures have been instituted. Side Rails Up X 2 Frequent Obs/Assessments Occuring Family Present and informed to notify staff if the need to leave the bedside As available patient and family educated on Fall Prevention Program and Strategies. Assessment: 13:00 General: Appears in no apparent distress. Behavior is calm, cooperative. Pain: Denies hb pain. Neuro: Level of Consciousness is obeys commands, lethargic, Oriented to person, place, time, situation. Cardiovascular: Heart tones S1 S2 present Capillary refill < 3 seconds Patient's skin is warm and dry. Respiratory: Airway is patent Respiratory effort is even, unlabored, Respiratory pattern is regular, symmetrical, Breath sounds are clear bilaterally. GI: No signs and/or symptoms were reported involving the gastrointestinal system. : No signs and/or symptoms were reported regarding the genitourinary system. EENT: No signs and/or symptoms were reported regarding the EENT system. Derm: Skin is intact, is healthy with good turgor. Musculoskeletal: No signs and/or symptoms reported regarding the musculoskeletal system. 14:00 Reassessment: Patient appears in no apparent distress at this time. Patient and/or hb family updated on plan of care and expected duration. Pain level reassessed. Patient is alert, oriented x 3, equal unlabored respirations, skin warm/dry/pink. Family at bedside. 15:00 Reassessment: Patient appears in no apparent distress at this time. Patient and/or hb family updated on plan of care and expected duration. Pain level reassessed. Patient is alert, oriented x 3, equal unlabored respirations, skin warm/dry/pink. 16:00 Reassessment: Patient appears in no apparent distress at this time. No changes from hb previously documented assessment. Patient and/or family updated on plan of care and expected duration. Pain level reassessed. Patient is alert, oriented x 3, equal unlabored respirations, skin warm/dry/pink. 17:00 Reassessment: Patient appears in no apparent distress at this time. No changes from hb previously documented assessment. Patient and/or family updated on plan of care and expected duration. Pain level reassessed. Patient is alert, oriented x 3, equal unlabored respirations, skin warm/dry/pink. Vital Signs: 13:04 BP 132 / 78; Pulse 95; Resp 16; Temp 97.9; Pulse Ox 100% on R/A; Pain 2/10; hb 14:30 BP 134 / 64; Pulse 77; Resp 17; Pulse Ox 97% on R/A; hb 16:00 BP 113 / 51; Pulse 74; Resp 16; Pulse Ox 100% on R/A; hb ED Course: 12:42 Patient arrived in ED. rn 12:43 Adán Rodriguez MD is Attending Physician. rn 12:59 EKG done, by ED staff, reviewed by Adán Rodriguez MD. jb1 13:00 Patient has correct armband on for positive identification. Placed in gown. Bed in low hb position. Call light in reach. Side rails up X 1. 13:03 Triage completed. hb 13:04 Arm band placed on. hb 13:07 Frances García, RN is Primary Nurse. hb 17:00 No provider procedures requiring assistance completed. IV discontinued, intact, hb bleeding controlled, No redness/swelling at site. Pressure dressing applied. Administered Medications: 13:01 Drug: Glucagon 1 mg Route: IVP; Site: right antecubital; hb 14:00 Follow up: Response: No adverse reaction hb 13:01 Drug: NS 0.9% 500 ml Route: IV; Rate: bolus; Site: right antecubital; hb 13:55 Follow up: Response: No adverse reaction; IV Status: Completed infusion hb 13:01 Drug: D50W 50 ml Route: IVP; Site: right antecubital; hb 14:00 Follow up: Response: No adverse reaction hb Point of Care Testing: Blood Glucose: 16:05 Blood Glucose: 171 mg/dL; sg Ranges: Outcome: 16:30 Discharge ordered by MD. rn 17:00 Discharged to home ambulatory, with family. hb 17:00 Condition: stable 17:00 Discharge instructions given to patient, Instructed on discharge instructions, follow up and referral plans. medication usage, Demonstrated understanding of instructions, follow-up care, medications. 17:07 Patient left the ED. sg Signatures: OliveraBabar jb1 Juan Mehta RN RN sg Adán Rodriugez MD MD rn Baxter, Heather, SONNY RN hb Corrections: (The following items were deleted from the chart) 13:04 13:01 Presenting complaint: EMS states: BGL 30s, bystanders gave her a candy bar and hb juice, then BGL 43. hb
--- NOTE | 2018-11-11 16:31 | EDPHYS ---
Physician Documentation [facility] Name: Angie Ibarra Age: 68 yrs Sex: Female : 1950 Arrival Date: 11/11/2018 Time: 12:42 Bed 4 Private MD: ED Physician Adán Rodriguez HPI: 11/11 12:48 This 68 yrs old Female presents to ER via Unassigned with complaints of low rn blood sugar. 12:48 EMS reports low blood sugar, in 30s, was confused and combative, given kit corey by wax pattern coater, and oral glucose by EMS, with improvement rapidly now to baseline. Patient denies symptoms now. No chest pain/sob/abd pain/vomiting/diarrhea. Family reports not eating well. . Onset: The symptoms/episode began/occurred just prior to arrival. Severity of symptoms: At their worst the symptoms were moderate in the emergency department the symptoms have improved. The patient has experienced similar episodes in the past. The patient has not recently seen a physician. Historical: - Allergies: 13:00 No Known Allergies; hb - PMHx: 13:00 Diabetes - NIDDM; diabetic foot ulcer; Hypertension; hb - PSHx: 13:00 Cholecystectomy; Appendectomy; toe amputation; hb - Immunization history:: Adult Immunizations up to date. - Family history:: not pertinent. - Social history:: Smoking status: Patient/guardian denies using tobacco. - Ebola Screening: : No symptoms or risks identified at this time. - Hospitalizations: : No recent hospitalization is reported. ROS: 12:48 Constitutional: Negative for fever, chills, and weight loss, Eyes: Negative for injury, rn pain, redness, and discharge, Cardiovascular: Negative for chest pain, palpitations, and edema, Respiratory: Negative for shortness of breath, cough, wheezing, and pleuritic chest pain, Abdomen/GI: Negative for abdominal pain, nausea, vomiting, diarrhea, and constipation, MS/Extremity: Negative for injury and deformity, Skin: Negative for injury, rash, and discoloration, Neuro: Negative for headache, weakness, numbness, tingling, and seizure. Exam: 12:48 Constitutional: This is a well developed, well nourished patient who is awake, alert, rn and in no acute distress. Head/Face: Normocephalic, atraumatic. Cardiovascular: Regular rate and rhythm. No JVD. No pulse deficits. Respiratory: Lungs have equal breath sounds bilaterally, clear to auscultation. No rales, rhonchi or wheezes noted. No increased work of breathing, no retractions or nasal flaring. Abdomen/GI: soft, non-tender Skin: Warm, dry MS/ Extremity: Pulses equal, no cyanosis. Neurovascular intact. Full, normal range of motion. Equal circumference. Neuro: Awake and alert, GCS 15, oriented to person, place, time, and situation. Cranial nerves II-XII grossly intact. Motor strength 5/5 in all extremities. Sensory grossly intact. Vital Signs: 13:04 BP 132 / 78; Pulse 95; Resp 16; Temp 97.9; Pulse Ox 100% on R/A; Pain 2/10; hb 14:30 BP 134 / 64; Pulse 77; Resp 17; Pulse Ox 97% on R/A; hb 16:00 BP 113 / 51; Pulse 74; Resp 16; Pulse Ox 100% on R/A; hb MDM: 12:43 Patient medically screened. rn 16:27 Differential Diagnosis hypoglycemia, dehydration poor PO intake. Data reviewed: vital rn signs, nurses notes, lab test result(s), and as a result, I will discharge patient. Counseling: I had a detailed discussion with the patient and/or guardian regarding: the historical points, exam findings, and any diagnostic results supporting the discharge/admit diagnosis, lab results, the need for outpatient follow up, to return to the emergency department if symptoms worsen or persist or if there are any questions or concerns that arise at home. Response to treatment: the patient's symptoms have markedly improved after treatment, the patient's condition has returned to base line, the patient is now symptom free, and as a result, I will discharge patient. Special discussion: I discussed with the patient/guardian in detail that at this point there is no indication for admission to the hospital. It is understood, however, that if the symptoms persist or worsen the patient needs to return immediately for re-evaluation. Based on the history and exam findings, there is no indication for further emergent testing or inpatient evaluation. I discussed with the patient/guardian the need to see the primary care provider for further evaluation of the symptoms. ED course: Pt back to baseline, last admission taken off of glipizide, only on metformin, still not eating much, will dc home, family to monitor, they know what to do and how to monitor. . 11/11 12:43 Order name: CBC with Diff; Complete Time: 13:50 rn 11/11 12:43 Order name: Basic Metabolic Panel; Complete Time: 13:50 rn 11/11 12:48 Order name: Glucose, Ancillary Testing; Complete Time: 13:50 EDMS 11/11 13:56 Order name: Glucose, Ancillary Testing; Complete Time: 15:08 EDMS 11/11 16:03 Order name: Glucose, Ancillary Testing; Complete Time: 16:31 EDMS 11/11 12:43 Order name: IV Start; Complete Time: 13:00 rn 11/11 12:43 Order name: Glucose Level; Complete Time: 13:00 rn 11/11 12:43 Order name: EKG; Complete Time: 12:44 rn 11/11 12:43 Order name: EKG - Nurse/Tech; Complete Time: 13:00 rn 11/11 12:47 Order name: Diet Ada 1800 Luke; Complete Time: 12:48 bd 11/11 15:08 Order name: Glucose Level; Complete Time: 15:55 rn 11/11 15:55 Order name: Glucose Level; Complete Time: 16:05 sg Administered Medications: 13:01 Drug: Glucagon 1 mg Route: IVP; Site: right antecubital; hb 14:00 Follow up: Response: No adverse reaction hb 13:01 Drug: NS 0.9% 500 ml Route: IV; Rate: bolus; Site: right antecubital; hb 13:55 Follow up: Response: No adverse reaction; IV Status: Completed infusion hb 13:01 Drug: D50W 50 ml Route: IVP; Site: right antecubital; hb 14:00 Follow up: Response: No adverse reaction hb Point of Care Testing: Blood Glucose: 16:05 Blood Glucose: 171 mg/dL; sg Ranges: Critical Glucose Levels:Adult <50 mg/dl or >400 mg/dl <40 mg/dl or >180 mg/dl Disposition: 11/11/18 16:30 Discharged to Home. Impression: Hypoglycemia, unspecified, Dehydration. - Condition is Stable. - Discharge Instructions: Hypoglycemia, Blood Glucose Monitoring, Adult. - Medication Reconciliation Form, Thank You Letter, Antibiotic Education, Prescription Opioid Use form. - Follow up: Private Physician; When: As needed; Reason: Recheck today's complaints, Re-evaluation by your physician. - Problem is new. - Symptoms have improved. Signatures: Dispatcher [employer] Juan Maldonado RN RN sg Nieto, Roman, MD MD rn Baxter, Heather, RN RN hb Corrections: (The following items were deleted from the chart) 17:07 16:30 11/11/2018 16:30 Discharged to Home. Impression: Hypoglycemia, unspecified; sg Dehydration. Condition is Stable. Forms are Medication Reconciliation Form, Thank You Letter, Antibiotic Education, Prescription Opioid Use. Follow up: Private Physician; When: As needed; Reason: Recheck today's complaints, Re-evaluation by your physician. Problem is new. Symptoms have improved. rn
[2018-11-11 17:16] VITALS: TEMP 97.9
[2018-11-11 17:20] VITALS: BP 113/51; O2SAT 100
== END 2018-11-11 17:07 | disposition home or self-care (01) ==
LOC: ER 12:39
DX: E86.0 Dehydration (principal); I10 Essential (primary) hypertension
CPT/HCPCS: 36415; 80048; 82962 ×3; 85025; 93005; 96361; 96374; 96375; 99284; J1610

== ENCOUNTER 2019-07-25 09:48 | Inpatient (IN) | payer MEDICARE ==
--- OUTSIDE RECORDS SUMMARY | 2019-07-25 09:52 | XMS REPORT ---
:1950 [facility] Address [facility] Noah Rincon. [address] [place] [id number] Care Team Providers Name Role Phone Unavailable Unavailable Unavailable Problems This patient has no known problems. Allergies, Adverse Reactions, Alerts This patient has no known allergies or adverse reactions. Medications This patient has no known medications.
[2019-07-25] MEDS ORDERED: NA CHLORIDE 0.9% 500 ML ONE (10:46)
[2019-07-25 11:13] LABS: Absolute Lymphocytes (CBC) 1.9 K/uL (0.7-4.9); Basophils % 0.1 % (0-1.3); Lymphocytes % 10.6 % (15.3-44.8); MPV 8.5 fL (7.6-11.3); RBC Red Blood Cell Count 3.16 M/uL (3.86-4.86)
[2019-07-25 11:20] LABS: Protime INR 1.11
[2019-07-25 11:32] LABS: ALT/SGPT 19 U/L (12-78); AST/SGOT 17 U/L (15-37); Albumin 2.7 g/dL (3.4-5.0); Alkaline Phosphatase 107 U/L (45-117); BUN Blood Urea Nitrogen 77 mg/dL (7-18); Bicarbonate 17 mmol/L (21-32); Bilirubin Direct 0.5 mg/dL (0-0.2); Bilirubin Total 0.8 mg/dL (0.2-1.0); Glucose Level 152 mg/dL (74-106); NT PRO-BNP 3346 pg/mL (<125); Protein, Total 7.7 g/dL (6.4-8.2); Sodium Level 135 mmol/L (136-145); Troponin (Emerg Dept Use Only) < 0.02 ng/mL (0.0-0.045)
--- NOTE | 2019-07-25 11:33 | RAD REPORT ---
EXAM DESCRIPTION: RAD - Chest Single View - 07/25/2019 11:26 am CLINICAL HISTORY: weakness Chest pain. COMPARISON: Chest Single View dated 07/24/2018; Chest Single View dated 09/09/2017; Chest Single View dated 09/06/2017; Chest Single View dated 09/04/2017 FINDINGS: Portable technique limits examination quality. The lungs are grossly clear. The heart is normal in size. No displaced fractures. IMPRESSION: No acute intrathoracic process suspected.
--- NOTE | 2019-07-25 11:42 | RAD REPORT ---
EXAM DESCRIPTION: RAD - Tib Fib Left - 07/25/2019 11:27 am CLINICAL HISTORY: fall Trauma, fall COMPARISON: None FINDINGS: Left tibia/ fibula and left ankle - multiple projections are submitted No fracture, dislocation or aggressive marrow lesion. Soft tissue swelling is noted. Prominent calcan eal spurs are evident.
--- NOTE | 2019-07-25 12:41 | RAD REPORT ---
EXAM DESCRIPTION: CT - Stone Protocol - 07/25/2019 12:31 pm CLINICAL HISTORY: Flank pain. vomiting, diarrhea COMPARISON: Abdomen Pelvis Wo Contrast dated 03/16/2016 TECHNIQUE: Axial images were obtained without oral or IV contrast. Lack of contrast limits solid org an and vascular assessment. The [id number] spans the entirety of the system partially obscuring uppermost abdomen and lung bases. Coronal reformatted images were obtained and reviewed. All CT scans are performed using dose optimization technique as appropriate and may include automated exposure control or mA/KV adjustment according to patient size. FINDINGS: The lower lung bello are clear. Cholecystectomy clips. Imaged portions of the liver and spleen show no suspicious findings on non-contrast imaging. The panc reas and adrenal glands are normal. No pathologic lymphadenopathy in the abdomen or pelvis. No urinary tract stones or obstructive uropathy. No bowel obstruction, free air, free fluid or abscess. The appendix is not identified as a discrete s tructure, however, no secondary findings of appendicitis are identified. L5-S1 bilateral spondylolysis. IMPRESSION: No urinary tract stones or obstructive uropathy.
--- NOTE | 2019-07-25 13:29 | RAD REPORT ---
EXAM DESCRIPTION: RAD - Ankle Left 2 View - 07/25/2019 11:28 am CLINICAL HISTORY: Fall Trauma, fall COMPARISON: None FINDINGS: Left tibia/ fibula and left ankle - multiple projections are submitted No fracture, dislocation or aggressive marrow lesion. Soft tissue swelling is noted. Prominent calcan eal spurs are evident.
[2019-07-25 13:57] LABS: Urine Blood NEGATIVE (NEG); Urine Glucose NEGATIVE (NEG); Urine Protein 2+ (NEG)
--- NOTE | 2019-07-25 15:25 | RAD REPORT ---
EXAM DESCRIPTION: US - Extremity Venous Uni Ltd - 07/25/2019 3:17 pm CLINICAL HISTORY: SWELLING Leg swelling and edema. COMPARISON: Abdomen Acute Series dated 11/24/2018; Chest Single View dated 04/20/2017; Abdomen Acute Se makayla dated 04/19/2017; CHEST SINGLE VIEW dated 09/16/2015No comparisons FINDINGS: Left lower extremity venous system was interrogated with Doppler technique. Normal flow, c ompressibility and augmentation was noted. There is no DVT present. IMPRESSION: No evidence of left lower extremity deep venous thrombosis.
--- NOTE | 2019-07-25 15:25 | EDPHYS ---
Physician Documentation [facility] Name: Angie Ibarra Age: 69 yrs Sex: Female : 1950 Arrival Date: 07/25/2019 Time: 09:49 Bed 7 Private MD: Jonnie Watkins ED Physician Adán Rodriguez HPI: 07/25 10:44 This 69 yrs old Female presents to ER via Wheelchair with complaints of jmm Vomiting, Dizziness, Weakness. 10:44 The patient presents to the emergency department with vomiting, diarrhea. Onset: The jmm symptoms/episode began/occurred gradually, 3 day(s) ago. Possible causes: unknown. Family states the patient developed vomiting 3 days ago along with diarrhea. States the patient developed weakness yesterday and fell injuring her left lower leg. Patient denies abdominal pain denies chest pain. Family states patient has had similar episodes due to blood glucose levels. . Historical: - Allergies: 10:21 No Known Allergies; aa5 - PMHx: 10:21 Diabetes - NIDDM; diabetic foot ulcer; Hypertension; aa5 - PSHx: 10:21 Cholecystectomy; Appendectomy; toe amputation; aa5 - Immunization history:: Pneumococcal vaccine is up to date, Flu vaccine is up to date. - Social history:: Smoking status: Patient/guardian denies using tobacco. - Ebola Screening: : No symptoms or risks identified at this time. ROS: 10:44 Constitutional: Negative for fever, chills, and weight loss, Cardiovascular: Negative jmm for chest pain, palpitations, and edema, Respiratory: Negative for shortness of breath, cough, wheezing, and pleuritic chest pain. 10:44 Abdomen/GI: Positive for vomiting, diarrhea. 10:44 All other systems are negative. Exam: 10:44 Constitutional: This is a well developed, well nourished patient who is awake, alert, jmm and in no acute distress. Head/Face: atraumatic. Eyes: EOMI, no conjunctival erythema appreciated ENT: Moist Mucus Membranes Neck: Trachea midline, Supple Chest/axilla: Normal chest wall appearance and motion. Cardiovascular: Regular rate and rhythm. No edema appreciated Respiratory: Normal respirations, no respiratory distress appreciated 10:44 Back: Normal ROM Skin: General appearance color normal 10:44 Abdomen/GI: Inspection: abdomen appears normal, Bowel sounds: normal, Palpation: abdomen is soft and non-tender, in all quadrants, soft. 10:44 Musculoskeletal/extremity: ROM: intact in all extremities, ecchymosis noted to the left lower leg, no bony tenderness appreciated, full dorsalis pulse appreciated, compartments are soft, NVI. 10:44 Skin: Appearance: Color: normal in color. 10:44 Neuro: Orientation: is normal, Mentation: is normal, Memory: is normal. 10:44 Psych: Behavior/mood is pleasant, cooperative. Vital Signs: 10:21 BP 122 / 96; Pulse 92; Temp 98.5(TE); Pulse Ox 98% on R/A; Weight 111.13 kg (R); aa5 12:18 BP 124 / 59; Pulse 86; Resp 18; Pulse Ox 100% on R/A; mg2 13:46 Pulse 88; Resp 18; Pulse Ox 100% on R/A; mg2 14:11 BP 117 / 44; Pulse 87; Resp 18; Pulse Ox 99% on R/A; mg2 15:32 Pulse 80; Resp 18; Pulse Ox 99% on R/A; mg2 15:51 BP 127 / 66; Pulse 87; Resp 18; Pulse Ox 100% on R/A; mg2 16:55 BP 127 / 66; Pulse 88; Resp 18; Temp 99; Pulse Ox 100% on R/A; mg2 MDM: 10:33 Patient medically screened. [facility] 15:22 Data reviewed: vital signs, nurses notes. Counseling: I had a detailed discussion with kaushal the patient and/or guardian regarding: the historical points, exam findings, and any diagnostic results supporting the discharge/admit diagnosis, lab results, radiology results. ED course: I discussed the patient with Dr. Grider whom accepted admission. I discussed the patient with Dr. Julio whom will consult on admission. . 07/25 10:38 Order name: Basic Metabolic Panel; Complete Time: :33 [facility] 07/25 10:38 Order name: CBC with Diff; Complete Time: : [facility] 07/25 10:38 Order name: LFT's; Complete Time: 11:33 [facility] 07/25 10:38 Order name: Magnesium; Complete Time: 11:33 [facility] 07/25 10:38 Order name: NT PRO-BNP; Complete Time: 11:33 [facility] 07/25 10:38 Order name: PT-INR; Complete Time: 11:33 [facility] 07/25 10:38 Order name: Troponin (emerg Dept Use Only); Complete Time: 11:33 [facility] 07/25 10:44 Order name: Lipase; Complete Time: 11:33 [facility] 07/25 11:35 Order name: Urine Culture [facility] 07/25 12:31 Order name: Urine Dipstick--Ancillary (enter results); Complete Time: 14:00 mo 07/25 12:43 Order name: Flu; Complete Time: 13:40 [facility] 07/25 15:59 Order name: Basic Metabolic Panel [facility] 07/25 15:59 Order name: Basic Metabolic Panel [facility] 07/25 15:59 Order name: CBC with Automated Diff [facility] 07/25 10:38 Order name: XRAY Chest (1 view); Complete Time: 12:04 [facility] 07/25 10:38 Order name: EKG; Complete Time: 10:42 [facility] 07/25 10:38 Order name: Cardiac monitoring; Complete Time: 11:05 [facility] 07/25 10:38 Order name: EKG - Nurse/Tech; Complete Time: 11:05 [facility] 07/25 10:38 Order name: IV Saline Lock; Complete Time: 11:05 [facility] 07/25 10:38 Order name: Labs collected and sent; Complete Time: 11:05 [facility] 07/25 10:38 Order name: Tib Fib Left XRAY; Complete Time: 12:04 [facility] 07/25 11:32 Order name: Ankle Left 2 View; Complete Time: 13:37 [facility] 07/25 12:18 Order name: CT Stone Protocol; Complete Time: 13:01 [facility] 07/25 13:02 Order name: US Extremity Venous Unilateral Ltd; Complete Time: 15:35 [facility] 07/25 15:59 Order name: CONS Physician Consult [facility] 07/25 15:59 Order name: Clear Liquid [facility] 07/25 15:59 Order name: CBC with Automated Diff [facility] 07/25 10:38 Order name: O2 Per Protocol; Complete Time: 11:05 [facility] 07/25 10:38 Order name: O2 Sat Monitoring; Complete Time: 11:05 [facility] 07/25 11:35 Order name: Urine Dipstick-Ancillary (obtain specimen); Complete Time: 12:18 [facility] 07/25 11:35 Order name: Straight Cath - Urine; Complete Time: 12:18 [facility] 07/25 15:00 Order name: Misc. Order: ambulate patient; Complete Time: 15:30 [facility] Administered Medications: 11:05 Drug: NS 0.9% 500 ml Route: IV; Rate: bolus; Site: left antecubital; hb 16:35 Follow up: Response: No adverse reaction; IV Status: Completed infusion; IV Intake: mg2 500ml 15:50 Drug: Clindamycin 300 mg Route: IVPB; Infused Over: 30 mins; Site: left antecubital; mg2 16:34 Follow up: Response: No adverse reaction; IV Status: Completed infusion mg2 Point of Care Testing: Blood Glucose: 10:22 Blood Glucose: 172 mg/dL; aa5 15:31 Blood Glucose: 140 mg/dL; mg2 Ranges: Critical Glucose Levels:Adult <50 mg/dl or >400 mg/dl <40 mg/dl or >180 mg/dl Disposition: 19:04 Co-signature as Attending Physician, Adán Rodriguez MD. rn Disposition: 07/25/19 15:24 Hospitalization ordered by Rashad Grider for Inpatient Admission. Preliminary diagnosis are Dehydration, Cellulitis of the Left leg. - Bed requested for Telemetry/MedSurg (Inpatient). - Status is Inpatient Admission. mg2 - Condition is Stable. - Problem is new. - Symptoms are unchanged. UTI on Admission? No Signatures: Dispatcher [employer] [facility] Melba Lazcano RN RN Erasto Díaz PA PA [facility] Adán Rodriguez MD MD rn Calderon, Audri, RN RN aa Frances García RN RN Gume Almendarez RN RN mg2 Corrections: (The following items were deleted from the chart) 11:32 10:42 Ankle Left 3 View+RAD.RAD.BRZ ordered. [facility] 16:25 15:24 Hospitalization Ordered by Rashad Grider for Inpatient Admission. Preliminary diagnosis is Dehydration; Cellulitis of the Left leg. Bed requested for Telemetry/MedSurg (Inpatient). Status is Inpatient Admission. Condition is Stable. Problem is new. Symptoms are unchanged. UTI on Admission? No. [facility] 17:20 16:25 07/25/2019 15:24 Hospitalization Ordered by Rashad Grider for Inpatient mg2 Admission. Preliminary diagnosis is Dehydration; Cellulitis of the Left leg. Bed requested for Telemetry/MedSurg (Inpatient). Status is Inpatient Admission. Condition is Stable. Problem is new. Symptoms are unchanged. UTI on Admission? No. dw
--- NOTE | 2019-07-25 15:25 | ER ---
Nurse's Notes [facility] Name: Angie Ibarra Age: 69 yrs Sex: Female : 1950 Arrival Date: 07/25/2019 Time: 09:49 Bed 7 Private MD: Jonnie Watkins Diagnosis: Dehydration;Cellulitis of the Left leg Presentation: 07/25 10:19 Presenting complaint: Pt's daughter states "she's been really weak for 4 days now and aa5 she has no appetite". Pt reports vomiting x 3-4 days and diarrhea 2 days ago but none today. Pt denies abd pain. Pt's daughter states "her left leg is swollen and red and she has fallen about 3 times recently". Transition of care: patient was not received from another setting of care. Onset of symptoms was July 2019. Care prior to arrival: None. 10:19 Method Of Arrival: Wheelchair aa5 10:19 Acuity: DHRUV 2 aa5 12:20 Risk Assessment: Do you want to hurt yourself or someone else? Patient reports no mg2 desire to harm self or others. Initial Sepsis Screen: Does the patient meet any 2 criteria? No. Patient's initial sepsis screen is negative. Does the patient have a suspected source of infection? No. Patient's initial sepsis screen is negative. Historical: - Allergies: 10:21 No Known Allergies; aa5 - PMHx: 10:21 Diabetes - NIDDM; diabetic foot ulcer; Hypertension; aa5 - PSHx: 10:21 Cholecystectomy; Appendectomy; toe amputation; aa5 - Immunization history:: Pneumococcal vaccine is up to date, Flu vaccine is up to date. - Social history:: Smoking status: Patient/guardian denies using tobacco. - Ebola Screening: : No symptoms or risks identified at this time. Screenin:18 Abuse screen: Denies threats or abuse. Denies injuries from another. Nutritional mg2 screening: No deficits noted. Tuberculosis screening: No symptoms or risk factors identified. Fall Risk Fall in past 12 months (25 points). IV access (20 points). Assessment: 12:18 General: Appears in no apparent distress. comfortable, Behavior is calm, cooperative. mg2 Pain: Complains of pain in right leg and left leg Pain currently is 4 out of 10 on a pain scale. Quality of pain is described as aching, Pain began suddenly, Is intermittent. Neuro: Level of Consciousness is awake, alert, obeys commands, Oriented to person, place, time, situation. Neuro: Reports dizziness. Cardiovascular: Capillary refill < 3 seconds Patient's skin is warm and dry. Respiratory: Airway is patent Respiratory effort is even, unlabored, Respiratory pattern is regular, symmetrical. GI: Abdomen is round Reports vomiting. : Urine is clear. EENT: No signs and/or symptoms were reported regarding the EENT system. Derm: Skin is intact, is healthy with good turgor, Skin is pink, warm \\T\\ dry. normal, redness in the left leg. Musculoskeletal: Circulation, motion, and sensation intact. Capillary refill < 3 seconds, Reports pain in right leg and left leg. 15:31 Reassessment: tried to ambulate the patient but unable to do without assistance. she is mg2 wobbly and in pain when she tries to walk. advised about the plan for admission and she agreed. family is aware as well. Vital Signs: 10:21 BP 122 / 96; Pulse 92; Temp 98.5(TE); Pulse Ox 98% on R/A; Weight 111.13 kg (R); aa5 12:18 BP 124 / 59; Pulse 86; Resp 18; Pulse Ox 100% on R/A; mg2 13:46 Pulse 88; Resp 18; Pulse Ox 100% on R/A; mg2 14:11 BP 117 / 44; Pulse 87; Resp 18; Pulse Ox 99% on R/A; mg2 15:32 Pulse 80; Resp 18; Pulse Ox 99% on R/A; mg2 15:51 BP 127 / 66; Pulse 87; Resp 18; Pulse Ox 100% on R/A; mg2 16:55 BP 127 / 66; Pulse 88; Resp 18; Temp 99; Pulse Ox 100% on R/A; mg2 ED Course: 09:49 Patient arrived in ED. rg4 09:50 Jonnie Watkins DO is Private Physician. rg4 10:18 Arm band placed on. aa5 10:22 Triage completed. aa5 10:26 Erasto Díaz PA is PHCP. jmm 10:26 Adán Rodriguez MD is Attending Physician. [facility] 10:36 EKG done, by seismology technical officer. reviewed by Adán Rodriguez MD. at1 10:44 Frances García, RN is Primary Nurse. hb 11:05 Patient has correct armband on for positive identification. hb 11:05 Initial lab(s) drawn, by me, sent to lab. Inserted saline lock: 22 gauge in left hb forearm, using aseptic technique. Blood collected. 11:26 X-ray completed. Portable x-ray completed in exam room. jr1 11:32 XRAY Chest (1 view) In Process Unspecified. EDMS 11:32 Tib Fib Left XRAY In Process Unspecified. EDMS 11:32 Ankle Left 2 View In Process Unspecified. EDMS 12:20 No provider procedures requiring assistance completed. Straight cath inserted, using mg2 sterile technique, Specimen obtained. Returned 200 ml of urine. Patient tolerated well. 12:32 CT Stone Protocol In Process Unspecified. EDMS 13:01 Flu and/or RSV swab sent to lab. jp3 13:02 Flu Sent. jp3 15:17 US Extremity Venous Unilateral Ltd In Process Unspecified. EDMS 15:24 Rashad Grider is Hospitalizing Provider. kartik 16:55 Patient admitted, IV remains in place. mg2 Administered Medications: 11:05 Drug: NS 0.9% 500 ml Route: IV; Rate: bolus; Site: left antecubital; hb 16:35 Follow up: Response: No adverse reaction; IV Status: Completed infusion; IV Intake: mg2 500ml 15:50 Drug: Clindamycin 300 mg Route: IVPB; Infused Over: 30 mins; Site: left antecubital; mg2 16:34 Follow up: Response: No adverse reaction; IV Status: Completed infusion mg2 Point of Care Testing: Blood Glucose: 10:22 Blood Glucose: 172 mg/dL; aa5 15:31 Blood Glucose: 140 mg/dL; mg2 Ranges: Intake: 16:35 IV: 500ml; Total: 500ml. mg2 Outcome: 15:24 Decision to Hospitalize by Provider. kartik 16:54 Admitted to Tele accompanied by tech, family with patient, via stretcher, room 409, mg2 with chart, Report called to Regla Gomez RN 16:54 Condition: stable 16:54 Instructed on the need for admit, Demonstrated understanding of instructions. 17:20 Patient left the ED. mg2 Signatures: Dispatcher [employer] EDMS Erasto Díaz PA PA jmm [place], Jennifer jr1 Edith Brewer RN RN aa5 Francisca Dawson, jewel hole driller EKG Tat1 Melissa Anderson RN RN Frances García, SONNY RN Darya Sol rg4 Gume Almendarez RN RN [facility] Darryn Reyna jp3 Corrections: (The following items were deleted from the chart) 10:23 10:21 BP 122 / 96; Pulse 92bpm; Pulse Ox 98% RA; Temp 98.5F Temporal; aa5 aa5 10:26 10:19 Presenting complaint: Pt's daughter states "she's been really weak for 4 days now aa5 and she has no appetite". Pt reports vomiting x 3-4 days and diarrhea 2 days ago but none today. Pt denies abd pain. aa5 11:46 11:40 BP 126 / 83; Pulse 104bpm; Resp 24bpm; Pulse Ox 95% 4 lpm Nasal Cannula; ph ph
[2019-07-25] MEDS ORDERED: CLINDAMYCIN IV 150 MG/ML (4 mL) VIAL ONE (15:46)
[2019-07-25] MEDS ORDERED: NA CHLORIDE 0.9% 50 ML IV ONE (15:47)
[2019-07-25] MEDS ORDERED: ONDANSETRON 4 MG/2 ML VIAL IV PRN (15:49)
[2019-07-25] MEDS ORDERED: ACETAMINOPHEN 500 MG TAB PO PRN ×2 (15:49→18:34)
[2019-07-25] MEDS: NA CHLORIDE 0.9% 1,000 ML IV SCH (18:02)
--- NOTE | 2019-07-25 18:18 | P.HP ---
Certification for Inpatient With expected LOS: >2 Midnights Practitioner: I am a practitioner with admitting privileges, knowledge of patient current condition, hospital course, and medical plan of care. Services: Services provided to patient in accordance with Admission requirements found in Title 42 Section 412.3 of the Code of Federal Regulations Patient History Date of Service: 07/25/19 Reason for admission: Multiple falls History of Present Illness: 69-year-old woman with a history of chronic kidney disease, DM and legally blind was brought to the emergency department due to multiple falls at home. The falls were preceded by bouts of nausea and vomiting and diarrhea. Fever also reported. Daughter reports patient became generally weak since 2 days ago. Daughter described that patient is slid from her bed during the falls. She states that she hit her left leg on an object and developed swelling and erythema which has not resolved. In the ED, CBC demonstrated leukocytosis. There is also increase in her serum creatinine from baseline suggesting acute renal failure. Venous Doppler of of the left lower extremity was negative for DVT. X-ray of the left LE demonstrates no fracture. CT abdomen and pelvis was unremarkable. Patient admitted for possible cellulitis and acute renal failure. Allergies No Known Allergies Allergy (Verified 09/04/17 17:39) Home Medications: Atorvastatin Calcium 40 mg PO DAILY 10/21/18 Amlodipine [Norvasc*] 5 mg PO DAILY #30 tab 10/23/18 Cefuroxime Axetil [Cefuroxime] 500 mg PO BID #10 tab 10/23/18 - Past Medical/Surgical History Diabetic: Yes -: DIABETES -: HTN- CONTROLLED -: High cholesterol -: UTI -: JESSE -: APPENDECTOMY - Family History Father -: Hypertension, Diabetes - Social History Alcohol use: No CD- Drugs: No Caffeine use: Yes Review of Systems Other: General: No fever, no malaise, no unintentional weight loss. Eyes: No eye discharge, Respiratory: No cough, no shortness of breath. CVS: No chest pain, no palpitation, no lightheadedness. GI: No abdominal pain, diarrhea has resolved. Genitourinary: No dysuria, no urinary frequency, no incontinence, no hematuria. Neurology: No headache, no asymmetric weakness, no problem with swallowing. Except last documented, all other systems reviewed and negative. Physical Examination - Vital Signs Temperature: 99 F Blood Pressure: 127/66 Pulse: 88 Respirations: 18 - Physical Exam General: Alert, In no apparent distress, Oriented x3 HEENT: Atraumatic, Mucous membr. moist/pink Neck: Supple, JVD not distended Respiratory: Clear to auscultation bilaterally, Normal air movement Cardiovascular: No edema, Regular rate/rhythm, Normal S1 S2, No murmurs Capillary refill: <2 Seconds Gastrointestinal: Normal bowel sounds, Soft and benign, No tenderness Musculoskeletal: Swelling (Left Lower leg), Erythema (Left lower leg.) Integumentary: Erythema (Left lower leg) Neurological: Normal strength at 5/5 x4 extr, Cranial nerves 3-12 intact Lymphatics: No axilla or inguinal lymphadenopathy - Studies Laboratory Data (last 24 hrs) 07/25/19 10:57: Lipase 76 07/25/19 10:57: PT 13.0 H, INR 1.11 07/25/19 10:57: WBC 18.1 H, Hgb 10.0 L, Hct 29.0 L, Plt Count 187 07/25/19 10:57: Sodium 135 L, Potassium 4.0, BUN 77 H, Creatinine 3.66 H, Glucose 152 H, Magnesium 2.0, Total Bilirubin 0.8, AST 17, ALT 19, Alkaline Phosphatase 107 Microbiology Data (last 24 hrs): 07/25/19 13:00 Nasopharnyx Influenza Type A Antigen Screen - Final 07/25/19 13:00 Nasopharnyx Influenza Type B Antigen Screen - Final Assessment and Plan - Problems (Diagnosis) (1) Acute renal failure superimposed on stage 3 chronic kidney disease Current Visit: Yes Status: Acute (2) Cellulitis of lower extremity Current Visit: Yes Status: Acute (3) Leukocytosis Onset Date: 08/05/15 Current Visit: No Status: Acute (4) Diabetes mellitus Onset Date: 08/05/15 Current Visit: No Status: Chronic Qualifiers: Diabetes mellitus type: type 2 Diabetes mellitus adjunct faculty for medical terminology insulin use: without adjunct faculty for medical terminology use Diabetes mellitus complication status: with circulatory complication Diabetes mellitus complication detail: with peripheral angiopathy without gangrene Qualified Code(s): E11.51 - Type 2 diabetes mellitus with diabetic peripheral angiopathy without gangrene (5) Hypertension Onset Date: 03/17/16 Current Visit: No Status: Chronic Qualifiers: Hypertension type: essential hypertension Qualified Code(s): I10 - Essential (primary) hypertension - Plan Admit to F IV Rocephin and clindamycin Follow blood culture Monitor CBC Keep left lower extremity elevated. Insulin sliding scale for glucose management IV hydration for prerenal azotemia. Nephrology consult Measure Intake and output. Patient is currently normotensive. Hold BP meds. - Advance Directives Does patient have a Living Will: No Does patient have a Durable POA for Healthcare: No
[2019-07-25 18:47] VITALS: BMI 43.4
--- NOTE | 2019-07-25 20:20 | EKG ---
Test Date: 2019-07-25 Test Time: 10:32:21 Java Technical Manager: BEV MEASUREMENT RESULTS: Intervals: Rate: 90 AK: 146 QRSD: 76 QT: 376 QTc: 459 [place]: P: 50 AK: 146 QRS: -16 T: 40 INTERPRETIVE STATEMENTS: Normal sinus rhythm Normal ECG Compared to ECG 11/11/2018 12:54:51 No significant changes Electronically Signed On 07-25-19 20:18:30 CDT by Horace Walker
[2019-07-25] MEDS: CEFTRIAXONE/SWI 1gm 1 GM/10 ML SYR IVP SCH (21:00)
[2019-07-25] MEDS: INSULIN -REGULAR HUMAN 50 UNIT/0.5 ML ML SQ SCH (21:00)
[2019-07-25] MEDS: HEPARIN 5000 UNIT/ML 1 ML VIAL SQ SCH (22:06)
[2019-07-26] MEDS: CLINDAMYCIN INJ 600 MG in NA CHLORIDE 0.9% 50 ML IV SCH ×3 (00:45→18:16)
[2019-07-26] MEDS: NA CHLORIDE 0.9% 1,000 ML IV SCH ×2 (05:20→07:35)
[2019-07-26 06:18] LABS: Absolute Lymphocytes (CBC) 2.7 K/uL (0.7-4.9); Basophils % 0.2 % (0-1.3); Hematocrit 25.9 % (36.0-45.0); Lymphocytes % 14.9 % (15.3-44.8); MPV 8.4 fL (7.6-11.3); RBC Red Blood Cell Count 2.76 M/uL (3.86-4.86)
[2019-07-26 06:20] LABS: Magnesium 2.1 mg/dL (1.8-2.4); Phosphorus 4.1 mg/dL (2.5-4.9); Potassium 3.9 mmol/L (3.5-5.1)
[2019-07-26] MEDS: INSULIN -REGULAR HUMAN 50 UNIT/0.5 ML ML SQ SCH ×4 (07:30→21:00)
[2019-07-26] MEDS: CEFTRIAXONE/SWI 1gm 1 GM/10 ML SYR IVP SCH (09:00)
[2019-07-26] MEDS ORDERED: POTASSIUM CL SA 10 MEQ TAB PO ONE (09:00)
[2019-07-26 09:06] LABS: Blood Morphology Comment NOT SEEN (NOT SEEN); Platelet Estimate ADEQ
[2019-07-26] MEDS: HEPARIN 5000 UNIT/ML 1 ML VIAL SQ SCH ×2 (10:54→22:30)
--- NOTE | 2019-07-26 13:14 | P.PN ---
Subjective Date of Service: 07/26/19 Chief Complaint: Multiple falls Subjective: No C/O voiced She reports poor appetite. She denies pain in the left lower extremity. The left lower extremity erythema seems to be worsened. No recorded fever. Review of Systems 10-point ROS is otherwise unremarkable Physical Examination - Vital Signs Temperature: 98.3 F Blood Pressure: 140/69 Pulse: 88 Respirations: 16 Pulse Ox (%): 96 - Physical Exam General: In no apparent distress, Oriented x3 HEENT: Mucous membr. moist/pink Neck: Supple, JVD not distended Respiratory: Clear to auscultation bilaterally, Normal air movement Cardiovascular: Regular rate/rhythm, Normal S1 S2, No murmurs Gastrointestinal: Normal bowel sounds, Soft and benign, No tenderness Musculoskeletal: Swelling (Right lower extremity), Tenderness (Right lower leg from foot up to mid-peraza.) Neurological: Normal strength at 5/5 x4 extr, Normal affect - Studies Microbiology Data (last 24 hrs): 07/25/19 13:00 Nasopharnyx Influenza Type A Antigen Screen - Final 07/25/19 13:00 Nasopharnyx Influenza Type B Antigen Screen - Final Assessment And Plan - Current Problems (Diagnosis) (1) Cellulitis of lower extremity Current Visit: Yes Status: Acute (2) Acute renal failure superimposed on stage 3 chronic kidney disease Current Visit: Yes Status: Acute (3) Leukocytosis Onset Date: 08/05/15 Current Visit: No Status: Acute (4) Diabetes mellitus Onset Date: 08/05/15 Current Visit: No Status: Chronic Qualifiers: Diabetes mellitus type: type 2 Diabetes mellitus group home insulin use: without vermin exterminator use Diabetes mellitus complication status: with circulatory complication Diabetes mellitus complication detail: with peripheral angiopathy without gangrene Qualified Code(s): E11.51 - Type 2 diabetes mellitus with diabetic peripheral angiopathy without gangrene (5) Hypertension Onset Date: 03/17/16 Current Visit: No Status: Chronic Qualifiers: Hypertension type: essential hypertension Qualified Code(s): I10 - Essential (primary) hypertension - Plan Continue IV Rocephin and clindamycin Follow blood culture. Keep left lower extremity elevated Monitor CBC Insulin sliding scale for glucose management. Serum creatinine only improved slightly Con IV hydration for prerenal azotemia. Nephrology to see patient. Patient is currently normotensive. Hold Bumex.
[2019-07-26 14:17] LABS: Absolute Lymphocytes (CBC) 3.1 K/uL (0.7-4.9); Basophils % 0.2 % (0-1.3); Hematocrit 25.9 % (36.0-45.0); Lymphocytes % 16.5 % (15.3-44.8); MPV 8.4 fL (7.6-11.3); RBC Red Blood Cell Count 2.76 M/uL (3.86-4.86)
[2019-07-26] MEDS ORDERED: WATER FOR INJ,STERILE 1,000 ML with NA BICARB 8.4% 100 MEQ IV SCH ×2 (17:00)
--- NOTE | 2019-07-26 22:05 | CON ---
Date of Consultation: 07/26/2019 Requesting Provider: Dr. Rashad Grider. Reason For Consultation: Chronic kidney disease with acute worsening. History Of Present Illness: Ms. Rodríguez is a 69-year-old female followed by Dr. Watkins [facility] with a chronic kidney disease stage 4, baseline creatinine of 2.9 to 3.1, prese nted to hospital with nausea, vomiting, found to have cellulitis and admitted to the hospital. She h as been on IV hydration, antibiotics. The patient at baseline lives at home. She is legally blind s econdary to diabetes. She is ambulatory but with assistance at the house. Over the last 3 days, her ambulation has decreased where she became bedbound and she was sent here to the hospital. Reviewing the labs here, patient not received any IV contrast studies. I do not see any NSAID on the medicati on list. The patient is usually maintained on Bumex in the outpatient setting for her chronic edema. Currently seen here at bedside with the . She has no acute complaints. Feels well. Denies any fevers, chills, chest pain, shortness of breath, nausea, vomiting, or diarrhea. She has not had Physical Therapy evaluation at this time. Past Medical History: CKD stage 4, diabetes mellitus, retinopathy, hypertension, blindness, glaucoma , dyslipidemia. Past Surgical History: Cataract surgery, cholecystectomy. Social History: Patient lives at home. No significant alcohol, tobacco or drug use noted. Family History: Reviewed and noncontributory. Physical Examination: Vital Signs: Blood pressure is 140/69, pulse 88, temperature 98.3 degrees, blood pressure range has been from the systolic 100 up to 140s with the 140s being seen most recently in the past 12 hours. General: No acute distress. Patient is obese. Heart: Regular rate and rhythm. No murmurs, rubs, gallops. Distant heart sounds. Lungs: Mild crepitations at the bases. Abdomen: Soft, nontender, nondistended. Sluggish bowel sounds. Extremities: With 1+ edema bilaterally with a circumscribed area of erythema on the right lower extr emity, which has been demarcated by the primary team, which shows regression of the margins. Laboratory Data: CBC: WBC 18.5, hemoglobin 8.8, hematocrit 25.9, platelets 184. Serum chemistry: Sodium 140, potassium 3.9, chloride 110, CO2 of 18, BUN 74, creatinine 3.11, glucose 111, calcium 8.4 , phosphorus 4.1, magnesium is 2.1. BUN and creatinine on admission yesterday were 77/3.66. There w as hyponatremia noted with sodium 135, which improved to 140. BNP is 3346. Albumin level is 2.7. U A: 2+ protein, otherwise bland. Diagnostic Imaging: Reviewed. Urinary system was clear of any acute pathology. Other ancillary fin dings; no distinct mention of renal morphology, liver and spleen with no acute abnormalities. Current Medications: Normal saline at 75 mL/hour. Ceftriaxone 1 g IV daily, clindamycin 600 mg IV q .8, potassium chloride 20 mEq 1 dose given today. Remainder of medications were reviewed. Microbiology Data: Blood cultures are pending. Flu screen was negative. Impression: 1.Acute kidney injury on chronic kidney disease, multifactorial. Patient has baseline chronic kidne y disease 4 in the setting of diabetes with acute worsening, likely setting of volume depletion as we ll as ongoing infection. 2.Acute cellulitis. 3.Nausea and vomiting, possibly sequela of the patient's underlying infection. 4.Decreased functional mobility in the setting of acute illness. 5.Hyponatremia. 6.Acidosis, multifactorial, chronic kidney disease as well as infusion of chloride based solution. Plan: Renal function has settled down. Her baseline creatinine as stated is 2.9 to 3.1. Last creat inine was 3.11, which improved from 3.67. Patient is on normal saline at 75 mL/hour. I will change that to a bicarbonate based solution at a lower rate until the patient regains p.o. intake. Notewort hy is the patient's ability to ambulate, patient usually is left by hand or is able to walk slowly on her own. She has not been able to walk over the past 3 to 4 days. We recommend Physical Therapy ev aluation. Renal dose all medications to chronic kidney disease 4. Avoid any NSAIDs. Avoid any contrast. We w ill continue to follow. SE/MODL Voice ID: [id number] Report ID: [id number]
[2019-07-27] MEDS: CLINDAMYCIN INJ 600 MG in NA CHLORIDE 0.9% 50 ML IV SCH ×3 (03:34→18:05)
[2019-07-27] MEDS: INSULIN -REGULAR HUMAN 50 UNIT/0.5 ML ML SQ SCH ×4 (07:30→21:00)
[2019-07-27] MEDS: CEFTRIAXONE/SWI 1gm 1 GM/10 ML SYR IVP SCH (09:58)
[2019-07-27] MEDS: HEPARIN 5000 UNIT/ML 1 ML VIAL SQ SCH ×2 (09:59→22:13)
--- NOTE | 2019-07-27 10:57 | P.PN ---
Subjective Date of Service: 07/27/19 Chief Complaint: Multiple falls Subjective: Tolerating diet (no significant appetite), Ambulating (from bed to chair) Review of Systems Respiratory: Other (pt on O2, does not use at home. Transition to IS and re-eval ) Integumentary: Other (left lower extremity remains hot to touch, Spouse states erythema is significantly improved, pt without any c/o pain, +peripheral pulses normal and with sensation) Physical Examination - Vital Signs Temperature: 98.0 F Blood Pressure: 137/63 Pulse: 77 Respirations: 16 Pulse Ox (%): 93 - Physical Exam General: Alert, In no apparent distress, Other (South African speaking) HEENT: Atraumatic, Normocephalic Neck: Supple, 2+ carotid pulse no bruit Respiratory: Clear to auscultation bilaterally, Normal air movement, Other (pt on O2, not dependent at home, will try to wean and encourage IS) Cardiovascular: Regular rate/rhythm Capillary refill: <2 Seconds Gastrointestinal: Normal bowel sounds, Soft and benign Musculoskeletal: No clubbing, No swelling Integumentary: Erythema, Warmth, Other (to left lower leg, improved per Spouse) Neurological: Normal speech, Other (will encourage ambulation) Lymphatics: No axilla or inguinal lymphadenopathy External genitalia: Deferred Rectal: Deferred - Studies Microbiology Data (last 24 hrs): 07/25/19 12:15 Catheterized Urine [place] Count - Final 07/25/19 12:15 Catheterized Urine - Final No growth. Assessment & Plan - Problems (Diagnosis) (1) Cellulitis of lower extremity Current Visit: Yes Status: Acute Qualifiers: Laterality: left Qualified Code(s): L03.116 - Cellulitis of left lower limb (2) Generalized weakness Current Visit: No Status: Acute Plan: Encourage out of bed to chair and assisted ambulation TID Discharge Plan: Home Plan to discharge in: 24 Hours - Code Status/Comfort Care Code Status: Full Code
[2019-07-27] MEDS ORDERED: TEMAZEPAM 15 MG CAP PO ONE (22:29)
[2019-07-28] MEDS: CLINDAMYCIN INJ 600 MG in NA CHLORIDE 0.9% 50 ML IV SCH ×2 (01:56→09:06)
[2019-07-28] MEDS: INSULIN -REGULAR HUMAN 50 UNIT/0.5 ML ML SQ SCH ×2 (07:30→12:58)
[2019-07-28] MEDS: HEPARIN 5000 UNIT/ML 1 ML VIAL SQ SCH (09:06)
[2019-07-28] MEDS: CEFTRIAXONE/SWI 1gm 1 GM/10 ML SYR IVP SCH (09:06)
[2019-07-28 12:04] VITALS: O2SAT 97
[2019-07-28 13:08] VITALS: BP 133/65; TEMP 98.4
--- NOTE | 2019-07-28 15:18 | P.DS ---
Admission Date: 07/25/19 Discharge Date: 07/28/19 Disposition: ROUTINE DISCHARGE Discharge Condition: FAIR Reason for Admission: Multiple falls - Problems (1) Cellulitis of lower extremity Current Visit: Yes Status: Acute Qualifiers: Laterality: left Qualified Code(s): L03.116 - Cellulitis of left lower limb (2) Chronic kidney disease, stage 3 Onset Date: 09/05/17 Current Visit: No Status: Chronic (3) Diabetes mellitus Onset Date: 08/05/15 Current Visit: No Status: Chronic (4) Hypertension Onset Date: 03/17/16 Current Visit: No Status: Chronic Brief History of Present Illness: 69-year-old woman with a history of chronic kidney disease, DM and legally blind was brought to the emergency department due to multiple falls at home. The falls were preceded by bouts of nausea and vomiting and diarrhea. Fever also reported. Daughter reports patient became generally weak since 2 days ago. Daughter described that patient is slid from her bed during the falls. She states that she hit her left leg on an object and developed swelling and erythema which has not resolved. In the ED, CBC demonstrated leukocytosis. There is also increase in her serum creatinine from baseline suggesting acute renal failure. Venous Doppler of of the left lower extremity was negative for DVT. X-ray of the left LE demonstrates no fracture. CT abdomen and pelvis was unremarkable. Patient admitted for possible cellulitis and acute renal failure. Hospital Course: Overall during the hospital stay patient remained stable Patient was initially admitted to the hospital for generalized weakness cellulitis and dehydration. Was started on IV fluids along with IV antibiotics. Patient cellulitis was located on the left lower extremity. Patient had marked improvement in the for 24-48 hr of being treated on IV antibiotics. Wound culture and blood cultures remained negative while here in the hospital. Patient on spinal cultures were negative for any acute growth at that time patient was switched over to oral antibiotics and was discharged home under stable condition. Patient was asked to follow up with primary care provider about 1-2 days post discharge. Was given a prescription for doxycycline. Vital Signs/Physical Exam: Temp Pulse Resp BP Pulse Ox 98.4 F 87 22 H 133/65 95 07/28/19 12:00 07/28/19 12:00 07/28/19 12:00 07/28/19 12:00 07/28/19 12:00 General: Alert, In no apparent distress HEENT: Atraumatic, PERRLA, EOMI Neck: Supple, JVD not distended Respiratory: Clear to auscultation bilaterally, Normal air movement Cardiovascular: Regular rate/rhythm, Normal S1 S2 Gastrointestinal: Normal bowel sounds, No tenderness Musculoskeletal: No tenderness Integumentary: No rashes Neurological: Normal speech, Normal tone, Normal affect Lymphatics: No axilla or inguinal lymphadenopathy Laboratory Data at Discharge: WBC 18.5 K/uL (4.3-10.9) H 07/26/19 13:52 Hgb 8.8 g/dL (12.0-15.0) L 07/26/19 13:52 Hct 25.9 % (36.0-45.0) L 07/26/19 13:52 Plt Count 184 K/uL (152-406) 07/26/19 13:52 PT 13.0 SECONDS (9.5-12.5) H 07/25/19 10:57 INR 1.11 07/25/19 10:57 Sodium 145 mmol/L (136-145) 07/28/19 07:10 Potassium 4.0 mmol/L (3.5-5.1) 07/28/19 07:10 BUN 57 mg/dL (7-18) H 07/28/19 07:10 Creatinine 2.24 mg/dL (0.55-1.3) H 07/28/19 07:10 Glucose 98 mg/dL (74-106) 07/28/19 07:10 Phosphorus 4.1 mg/dL (2.5-4.9) 07/26/19 05:51 Magnesium 2.1 mg/dL (1.8-2.4) 07/26/19 05:51 Total Bilirubin 0.8 mg/dL (0.2-1.0) 07/25/19 10:57 AST 17 U/L (15-37) 07/25/19 10:57 ALT 19 U/L (12-78) 07/25/19 10:57 Alkaline Phosphatase 107 U/L (45-117) 07/25/19 10:57 Lipase 76 U/L (73-393) 07/25/19 10:57 Home Medications: Aspirin 325 mg PO DAILY 07/25/19 Bumetanide [Bumex*] 1 mg PO DAILY 07/25/19 Pioglitazone HCl [Actos] 15 mg PO DAILY 07/25/19 Sitagliptin Phosphate [Januvia*] 50 mg PO DAILY 07/25/19 Doxycycline Hyclate 100 mg PO BID #28 tablet 07/28/19 New Medications: Doxycycline Hyclate 100 mg PO BID #28 tablet Diet: Regular Activity: Ad ninoska Followup: Jonnie Watkins DO [Primary Care Provider] - 1-2 Weeks (kidney doctor/primary care physician- call to schedule an appointment )
== END 2019-07-28 16:38 | disposition home health service (06) | DRG 603 ==
LOC: ER 09:48 → ERHOLD 15:48 → 4TH 16:55
PROVIDERS: ADMIT Internal Medicine; ATTEND Internal Medicine
DX: L03.116 Cellulitis of left lower limb (principal); Z68.41 Body mass index [BMI] 40.0-44.9, adult; N18.4 Chronic kidney disease, stage 4 (severe); N17.9 Acute kidney failure, unspecified; E87.1 Hypo-osmolality and hyponatremia; E87.2 Acidosis; I12.9 Hypertensive chronic kidney disease with stage 1 through stage 4 chronic kidney disease, or unspecified chronic kidney disease; E11.22 Type 2 diabetes mellitus with diabetic chronic kidney disease; H54.8 Legal blindness, as defined in USA; E86.0 Dehydration; E66.9 Obesity, unspecified; Z91.81 History of falling
CPT/HCPCS: 36415; 51702; 71045; 74176; 76377; 80048; 80076; 81003; 82962; 83605; 83690; 83735; 83880; 84100; 84484; 85025; 85610; 87040; 87086; 87088; 87804; 93005; 93971; 94760; 96361; 96365; 97161; 97530; 99285; J0696; J1644; J2405; J7030; S0077

== ENCOUNTER 2021-01-16 22:13 | Inpatient (IN) | payer MEDICARE ==
--- OUTSIDE RECORDS SUMMARY | 2021-01-16 22:17 | XMS REPORT | Continuity of Care Document ---
:[address] [facility] t Address [address] [place] [address] Care Team Providers Name Role Phone Unavailable Unavailable Unavailable Problems This patient has no known problems. Allergies, Adverse Reactions, Alerts This patient has no known allergies or adverse reactions. Medications This patient has no known medications. Procedures This patient has no known procedures. Results This patient has no known results.
[2021-01-16 23:38] LABS: Absolute Lymphocytes (CBC) 2.2 K/uL (0.7-4.9); Basophils % 0.3 % (0-1.3); Hematocrit 33.5 % (36.0-45.0); Lymphocytes % 13.6 % (15.3-44.8); MPV 7.5 fL (7.6-11.3); RBC Red Blood Cell Count 3.71 M/uL (3.86-4.86)
[2021-01-16] MEDS ORDERED: ONDANSETRON 4 MG/2 ML VIAL ONE (23:47)
[2021-01-16] MEDS ORDERED: MORPHINE 2 MG/ML SYR ONE (23:47)
[2021-01-16] MEDS ORDERED: FAMOTIDINE 20 MG/2 ML VIAL IV ONE (23:47)
[2021-01-16] MEDS ORDERED: NA CHLORIDE 0.9% 500 ML ONE (23:47)
[2021-01-16 23:52] LABS: Albumin 2.6 g/dL (3.4-5.0); Bilirubin Direct 0.2 mg/dL (0-0.2); Bilirubin Total 0.5 mg/dL (0.2-1.0); Potassium 3.9 mmol/L (3.5-5.1); Protein, Total 7.4 g/dL (6.4-8.2)
[2021-01-17] MEDS ORDERED: MORPHINE 2 MG/ML SYR ONE (02:08)
[2021-01-17] MEDS ORDERED: ONDANSETRON 4 MG/2 ML VIAL ONE (02:08)
[2021-01-17] MEDS ORDERED: NA CHLORIDE 0.9% 100 ML ONE (02:09)
[2021-01-17] MEDS ORDERED: METOCLOPRAMIDE 10 MG/2mL INJ ONE (02:09)
--- NOTE | 2021-01-17 03:25 | ER ---
Nurse's Notes [facility] Name: Angie Ibarra Age: 70 yrs Sex: Female : 1950 Arrival Date: 01/16/2021 Time: 22:38 Bed 15 Private MD: Diagnosis: Colitis;Vomiting Presentation: 01/16 22:46 Chief complaint: Patient's son or daughter states: throwing out black and abdominal rr5 pain for 2 days it started 3 weeks ago for the vomiting. no fever no BM for 1 week, seen her PCP 3 days ago prescribed antibiotic for 3 days now. Coronavirus screen: Client denies travel out of the [place] in the last 14 days. At this time, the client does not indicate any symptoms associated with coronavirus-19. Ebola Screen: Patient negative for fever greater than or equal to 101.5 degrees Fahrenheit, and additional compatible Ebola Virus Disease symptoms Patient denies exposure to infectious person. Patient denies travel to an Ebola-affected area in the 21 days before illness onset. Initial Sepsis Screen: Does the patient meet any 2 criteria? No. Patient's initial sepsis screen is negative. Initial Sepsis Screen: Does the patient have a suspected source of infection? No. Patient's initial sepsis screen is negative. Risk Assessment: Do you want to hurt yourself or someone else? Patient reports no desire to harm self or others. Onset of symptoms was January 14, 2021. 22:46 Method Of Arrival: Wheelchair rr5 22:46 Acuity: DHRUV 3 rr5 Triage Assessment: 01/17 04:14 GI: Reports. mg2 Historical: - Allergies: 01/16 22:53 No Known Allergies; rr5 - Home Meds: 22:53 escitalopram oxalate oral oral [Active]; Januvia oral oral [Active]; Bumetanide Oral rr5 [Active]; pioglitazone oral oral [Active]; docusate sodium Oral [Active]; Ondansetron Oral [Active]; Cipro Oral [Active]; - PMHx: 22:53 Diabetes - NIDDM; diabetic foot ulcer; Hypertension; rr5 - PSHx: 22:53 Appendectomy; Cholecystectomy; rr5 - Immunization history:: Adult Immunizations up to date. - Social history:: Smoking status: unknown. Screenin/08 00:14 Abuse screen: Denies threats or abuse. Denies injuries from another. Nutritional mg2 screening: No deficits noted. Tuberculosis screening: No symptoms or risk factors identified. Fall Risk Secondary diagnosis (15 points) wekaness. IV access (20 points). Assessment: 00:13 General: Appears in no apparent distress. comfortable, Behavior is calm, cooperative. mg2 Pain: Denies pain. Neuro: Level of Consciousness is awake, alert, obeys commands, Oriented to person, place, time, situation. Cardiovascular: Capillary refill < 3 seconds Patient's skin is warm and dry. Respiratory: Airway is patent Respiratory effort is even, unlabored, Respiratory pattern is regular, symmetrical. GI: Abdomen is distended, Parent/caregiver reports the patient having vomiting. : No signs and/or symptoms were reported regarding the genitourinary system. EENT: No signs and/or symptoms were reported regarding the EENT system. Derm: Skin is intact, is healthy with good turgor, Skin is pink, warm \T\ dry. normal. Musculoskeletal: Circulation, motion, and sensation intact. Capillary refill < 3 seconds. 01:31 Reassessment: patient sent to ct. mg2 02:50 Reassessment: Patient appears in no apparent distress at this time. Patient and/or mg2 family updated on plan of care and expected duration. Pain level reassessed. Patient is alert, oriented x 3, equal unlabored respirations, skin warm/dry/pink. Vital Signs: 01/16 22:46 BP 101 / 56; Pulse 82; Resp 19; Temp 97.5; Pulse Ox 99% ; Weight 81.65 kg; Height 5 ft. rr5 6 in. (167.64 cm); Pain 10/10; 01/17 00:14 BP 129 / 58; Pulse 80; Resp 18; Pulse Ox 99% on R/A; Pain 0/10; mg2 02:47 BP 113 / 70; Pulse 88; Resp 18; Pulse Ox 100% on 4 lpm NC; mg2 04:14 BP 113 / 61; Pulse 81; Resp 18; Temp 98; Pulse Ox 100% on R/A; mg2 01/16 22:46 Body Mass Index 29.05 (81.65 kg, 167.64 cm) rr5 ED Course: 01/16 22:38 Patient arrived in ED. am4 22:50 Triage completed. rr5 22:53 Arm band placed on right wrist. rr5 23:04 Leonel Mattson MD is Attending Physician. mh7 23:05 Gume Almendarez, SONNY is Primary Nurse. mg2 23:20 Initial lab(s) drawn, by me, sent to lab. Inserted saline lock: 22 gauge in right hand, em using aseptic technique. Blood collected. 01/17 00:14 Patient has correct armband on for positive identification. equipment monitor phototypesetting on. Pulse mg2 ox on. NIBP on. Door closed. Warm blanket given. 02:20 CT Abd/Pelvis - Without Contrast In Process Unspecified. EDMS 02:48 No provider procedures requiring assistance completed. mg2 03:23 Laz Rodriguez MD is Hospitalizing Provider. mh7 04:12 Patient admitted, IV remains in place. mg2 Administered Medications: 01/16 23:38 Drug: morphine 2 mg Route: IVP; Site: right hand; zb 23:38 Drug: Zofran (Ondansetron) 4 mg Route: IVP; Site: right hand; zb 23:38 Drug: Pepcid 20 mg Route: IVP; Site: right hand; zb 23:39 Drug: NS 0.9% 500 ml Route: IV; Rate: bolus; Site: right hand; zb 08 02:15 Drug: morphine 2 mg Route: IVP; Site: right hand; mg2 02:15 Drug: Reglan 10 mg Route: IVP; Site: right hand; mg2 03:18 Follow up: Response: No adverse reaction mg2 03:24 Drug: Rocephin - (cefTRIAXone) 1 grams Route: IVPB; Infused Over: 30 mins; Site: right mg2 hand; 03:59 Follow up: Response: No adverse reaction; IV Status: Completed infusion mg2 03:33 Drug: Flagyl 500 mg Volume: 100 ml; Route: IVPB; Rate: 200 ml/hr; Infused Over: 30 mg2 mins; Site: right hand; 03:57 Drug: NS 0.9% 500 ml Route: IV; Rate: bolus; Site: right hand; mg2 03:59 Drug: NS 0.9% 1000 ml Route: IV; Rate: 100 ml/hr; Site: right hand; mg2 Outcome: 03:23 Decision to Hospitalize by Provider. mh7 04:13 Admitted to Med/surg accompanied by tech, via wheelchair, room 218, with chart, Report mg2 called to SONNY Jacobs 04:13 Condition: good 04:13 Instructed on the need for admit, Demonstrated understanding of instructions. 04:34 Patient left the ED. mg2 Signatures: Dispatcher [employer] Maurice Rausch, RN RN em Gume Almendarez RN RN mg2 Laz Becker RN RN rr5 Leonel Mattson MD MD 7 Janay Bautista RN RN zb Martinez, Ashley am4 Corrections: (The following items were deleted from the chart) 01/16 22:54 22:46 Chief complaint: Patient's son or daughter states: throwing out black and rr5 abdominal pain for 2 days it started 3 weeks ago for the vomiting. no fever rr5 01/17 02:49 02:47 BP 113 / 70; Pulse 88bpm; Resp 18bpm; Pulse Ox 100% RA; mg2 mg2
--- NOTE | 2021-01-17 03:25 | EDPHYS ---
Physician Documentation [facility] Name: Angie Ibarra Age: 70 yrs Sex: Female : 1950 Arrival Date: 01/16/2021 Time: 22:38 Bed 15 Private MD: DEVEN Physician Leonel Mattson HPI: 01/16 23:37 This 70 yrs old Female presents to ER via Wheelchair with complaints of mh7 Vomiting. 23:37 The patient presents to the emergency department with nausea, that is moderate, mh7 vomiting, that is intermittent, abdominal pain, of the right upper quadrant, described as intermittent, vague,\\E\\ waxing and waning, and does not radiate. Onset: The symptoms/episode began/occurred 3 week(s) ago. Possible causes: unknown. The symptoms are aggravated by food , The symptoms are alleviated by nothing. 23:38 Associated signs and symptoms: Pertinent positives: abdominal pain, constipation, mh7 nausea, vomiting, Pertinent negatives: anorexia, belching, diarrhea, dysuria, fever, flatulence, GI bleeding, hematuria, vaginal discharge. Severity of symptoms: At their worst the symptoms were moderate 2 day(s) ago, in the emergency department the symptoms are unchanged. Historical: - Allergies: 22:53 No Known Allergies; rr5 - Home Meds: 22:53 escitalopram oxalate oral oral [Active]; Januvia oral oral [Active]; Bumetanide Oral rr5 [Active]; pioglitazone oral oral [Active]; docusate sodium Oral [Active]; Ondansetron Oral [Active]; Cipro Oral [Active]; - PMHx: 22:53 Diabetes - NIDDM; diabetic foot ulcer; Hypertension; rr5 - PSHx: 22:53 Appendectomy; Cholecystectomy; rr5 - Immunization history:: Adult Immunizations up to date. - Social history:: Smoking status: unknown. ROS: 23:38 Constitutional: Negative for fever, chills, and weight loss, Eyes: Negative for injury, mh7 pain, redness, and discharge, ENT: Negative for injury, pain, and discharge, Neck: Negative for injury, pain, and swelling, Cardiovascular: Negative for chest pain, palpitations, and edema, Respiratory: Negative for shortness of breath, cough, wheezing, and pleuritic chest pain, Back: Negative for injury and pain, : Negative for injury, bleeding, discharge, and swelling, MS/Extremity: Negative for injury and deformity, Skin: Negative for injury, rash, and discoloration, Neuro: Negative for headache, weakness, numbness, tingling, and seizure, Psych: Negative for depression, anxiety, suicide ideation, homicidal ideation, and hallucinations, Allergy/Immunology: Negative for hives, rash, and allergies, Endocrine: Negative for neck swelling, polydipsia, polyuria, polyphagia, and marked weight changes, Hematologic/Lymphatic: Negative for swollen nodes, abnormal bleeding, and unusual bruising. Exam: 23:38 Constitutional: This is a well developed, well nourished patient who is awake, alert, mh7 and in no acute distress. Head/Face: Normocephalic, atraumatic. Eyes: Pupils equal round and reactive to light, extra-ocular motions intact. Lids and lashes normal. Conjunctiva and sclera are non-icteric and not injected. Cornea within normal limits. Periorbital areas with no swelling, redness, or edema. Neck: Trachea midline, no thyromegaly or masses palpated, and no cervical lymphadenopathy. Supple, full range of motion without nuchal rigidity, or vertebral point tenderness. No Meningismus. Chest/axilla: Normal chest wall appearance and motion. Nontender with no deformity. No lesions are appreciated. Cardiovascular: Regular rate and rhythm with a normal S1 and S2. No gallops, murmurs, or rubs. Normal PMI, no JVD. No pulse deficits. Respiratory: Lungs have equal breath sounds bilaterally, clear to auscultation and percussion. No rales, rhonchi or wheezes noted. No increased work of breathing, no retractions or nasal flaring. 23:38 Back: No spinal tenderness. No costovertebral tenderness. Full range of motion. Skin: Warm, dry with normal turgor. Normal color with no rashes, no lesions, and no evidence of cellulitis. MS/ Extremity: Pulses equal, no cyanosis. Neurovascular intact. Full, normal range of motion. Neuro: Awake and alert, GCS 15, oriented to person, place, time, and situation. Cranial nerves II-XII grossly intact. Motor strength 5/5 in all extremities. Sensory grossly intact. Cerebellar exam normal. Normal gait. Psych: Awake, alert, with orientation to person, place and time. Behavior, mood, and affect are within normal limits. 23:38 Abdomen/GI: Inspection: obese Bowel sounds: normal, in all quadrants, Palpation: moderate abdominal tenderness, in the right upper quadrant, mass, is not appreciated, rebound tenderness, is not appreciated, voluntary guarding, is not appreciated, involuntary guarding, is not appreciated, no appreciated organomegaly, Rectal exam: the exam is deferred, because of patient request, Indicators: McBurney's point is not tender, Goldstein's sign is negative, Rovsing's sign is negative, Obturator sign is negative, Psoas sign is negative, Liver: no appreciated palpable abnormalities, Hernia: not appreciated. Vital Signs: 22:46 BP 101 / 56; Pulse 82; Resp 19; Temp 97.5; Pulse Ox 99% ; Weight 81.65 kg; Height 5 ft. rr5 6 in. (167.64 cm); Pain 10/10; 01/17 00:14 BP 129 / 58; Pulse 80; Resp 18; Pulse Ox 99% on R/A; Pain 0/10; mg2 02:47 BP 113 / 70; Pulse 88; Resp 18; Pulse Ox 100% on 4 lpm NC; mg2 04:14 BP 113 / 61; Pulse 81; Resp 18; Temp 98; Pulse Ox 100% on R/A; mg2 01/16 22:46 Body Mass Index 29.05 (81.65 kg, 167.64 cm) rr5 MDM: 03:22 Differential diagnosis: Nonspecific abd pain, gastritis, pancreatitis, diverticulitis, mh7 viral gastroenteritis, gastroenteritis. Data reviewed: vital signs, nurses notes, lab test result(s), amylase and lipase, CBC, electrolytes, urinalysis, EKG, radiologic studies, CT scan. Data interpreted: Pulse oximetry: on room air is 100 %. Interpretation: normal. Counseling: I had a detailed discussion with the patient and/or guardian regarding: the historical points, exam findings, and any diagnostic results supporting the discharge/admit diagnosis, lab results, radiology results, the need for further work-up and treatment in the hospital. Response to treatment: the patient's symptoms have mildly improved after treatment. 03:23 Patient medically screened. [facility] 01/16 23:06 Order name: Basic Metabolic Panel [facility] [place] [facility] 01/16 23:06 Order name: CBC with Diff mg2 01/16 23:06 Order name: Hepatic Function mg2 01/16 23:06 Order name: Lipase mg2 01/16 23:06 Order name: TS mg2 01/16 23:40 Order name: CBC with Automated Diff; Complete Time: 00:33 EDMS 01/16 23:52 Order name: Basic Metabolic Panel; Complete Time: 00:33 EDMS 01/16 23:52 Order name: Liver (Hepatic) Function; Complete Time: 00:33 EDMS 01/16 23:52 Order name: Lipase; Complete Time: 00:33 EDMS 01/17 00:12 Order name: COVID-19 : Document "Date of Symptom Onset" if Symptomatic. mg2 01/17 01:00 Order name: CORONAVIRUS EDMS 01/17 01:15 Order name: Type and Screen; Complete Time: 02:59 EDMS 01/17 01:59 Order name: SARS-COV-2 RT PCR; Complete Time: 02:59 EDMS 01/17 03:51 Order name: Blood Culture Adult (2) la1 01/16 23:06 Order name: IV Saline Lock; Complete Time: 00:12 mg2 01/16 23:06 Order name: Labs collected and sent; Complete Time: 00:12 [facility] 01/16 23:19 Order name: Urine Dipstick-Ancillary (obtain specimen); Complete Time: 04:34 7 01/17 00:33 Order name: CT Abd/Pelvis - Without Contrast [facility] 01/17 04:03 Order name: Urine Dipstick--Ancillary (enter results) tt3 01/17 04:07 Order name: Urine Culture [facility] 01/17 04:07 Order name: Urine Microscopic Only [facility] [place] 01/16 23:21 Order name: EKG - Nurse/Tech; Complete Time: 00:11 7 Administered Medications: 01/16 23:38 Drug: morphine 2 mg Route: IVP; Site: right hand; zb 23:38 Drug: Zofran (Ondansetron) 4 mg Route: IVP; Site: right hand; zb 23:38 Drug: Pepcid 20 mg Route: IVP; Site: right hand; zb 23:39 Drug: NS 0.9% 500 ml Route: IV; Rate: bolus; Site: right hand; zb 03/08 02:15 Drug: morphine 2 mg Route: IVP; Site: right hand; mg2 02:15 Drug: Reglan 10 mg Route: IVP; Site: right hand; mg2 03:18 Follow up: Response: No adverse reaction mg2 03:24 Drug: Rocephin - (cefTRIAXone) 1 grams Route: IVPB; Infused Over: 30 mins; Site: right mg2 hand; 03:59 Follow up: Response: No adverse reaction; IV Status: Completed infusion mg2 03:33 Drug: Flagyl 500 mg Volume: 100 ml; Route: IVPB; Rate: 200 ml/hr; Infused Over: 30 mg2 mins; Site: right hand; 03:57 Drug: NS 0.9% 500 ml Route: IV; Rate: bolus; Site: right hand; mg2 03:59 Drug: NS 0.9% 1000 ml Route: IV; Rate: 100 ml/hr; Site: right hand; mg2 Disposition: 01/17/21 03:23 Hospitalization ordered by Laz Rodriguez for Inpatient Admission. Preliminary diagnosis are Colitis, Vomiting. - Bed requested for Telemetry/MedSurg (Inpatient). - Status is Inpatient Admission. mg2 - Condition is Stable. - Problem is new. - Symptoms have improved. Signatures: Dispatcher [employer] EDMS Steve Light, JACEK-C CAR TESTER-Cla1 Monet Sol RN RN cg Gume Almendarez RN RN mg2 Laz Becker, SONNY RN rr5 Leonel Mattson MD MD 7 Janay Bautista RN RN zb Corrections: (The following items were deleted from the chart) 03:58 03:23 Hospitalization Ordered by Laz Rodriguez MD for Inpatient Admission. Preliminary cg diagnosis is Colitis; Vomiting. Bed requested for Telemetry/MedSurg (Inpatient). Status is Inpatient Admission. Condition is Stable. Problem is new. Symptoms have improved. [facility] 04:34 03:58 01/17/2021 03:23 Hospitalization Ordered by Laz Rodriguez MD for Inpatient mg2 Admission. Preliminary diagnosis is Colitis; Vomiting. Bed requested for Telemetry/MedSurg (Inpatient). Status is Inpatient Admission. Condition is Stable. Problem is new. Symptoms have improved. cg
[2021-01-17] MEDS ORDERED: CEFTRIAXONE/SWI 1gm 1 GM/10 ML SYR ONE (03:36)
[2021-01-17] MEDS ORDERED: METRONIDAZOLE 500mg IVPB 500 MG/100 ML BAG IV ONE (03:48)
--- NOTE | 2021-01-17 04:04 | P.HP ---
Certification for Inpatient Patient admitted to: Inpatient With expected LOS: >2 Midnights Patient will require the following post-hospital care: None Practitioner: I am a practitioner with admitting privileges, knowledge of patient current condition, hospital course, and medical plan of care. Services: Services provided to patient in accordance with Admission requirements found in Title 42 Section 412.3 of the Code of Federal Regulations <RubiaadanSteve - Last Filed: 01/17/21 04:29> Patient History Date of Service: 01/17/21 Primary Care Provider: Dr. Watkins Reason for admission: Colitis History of Present Illness: 70-year-old female with history of diabetes mellitus type 2, hypertension, blindness, CKD presents emergency department for abdominal pain, nausea and vomiting. Patient reports that she has been having difficulty keeping down solid foods for the past 2-3 weeks and then only taking in clear liquids with some abdominal pain still present. Patient evaluated in the ER labs significant for a white blood cell count 16 point to hemoglobin 10.7 hematocrit 33.5 creatinine 3.06 GFR 15, baseline GFR appears to be around between [address] demonstrates transverse colitis. Patient reports last bowel movement approximately 1 week ago but also not eating well this time. ED provider wishes to admit patient for further evaluation and management. - Past Medical/Surgical History Diabetic: Yes -: Diabetes mellitus type 2 -: HTN- CONTROLLED -: Blindness -: JESSE -: APPENDECTOMY -: Right great toe amputation Psychosocial/ Personal History: Patient is retired, lives at home with her and daughters - Family History Father -: Hypertension, Diabetes Mother -: Heart disease, Diabetes - Social History Smoking Status: Never smoker Alcohol use: No CD- Drugs: No Caffeine use: Yes Place of Residence: Home <Steve Light - Last Filed: 01/17/21 04:29> Date of Service: 01/17/21 <Laz Rodriguez - Last Filed: 01/17/21 16:26> Allergies No Known Allergies Allergy (Verified 09/04/17 17:39) Home Medications: Bumetanide [Bumex*] 1 mg PO DAILY 07/25/19 Sitagliptin Phosphate [Januvia*] 50 mg PO DAILY 07/25/19 Bumetanide [Bumex] 1 mg PO DAILY 01/17/21 Docusate [Colace Cap*] 100 mg PO DAILY 01/17/21 Escitalopram Oxalate [Lexapro] 5 mg PO DAILY 01/17/21 Ondansetron [Zofran (Odt)*] 4 mg PO PRN PRN 01/17/21 Pioglitazone HCl 30 mg PO DAILY 01/17/21 Review of Systems 10-point ROS is otherwise unremarkable Gastrointestinal: Nausea, Vomiting, Abdominal Pain, Other (Anorexia) <Steve Light - Last Filed: 01/17/21 04:29> Physical Examination - Physical Exam General: Alert, In no apparent distress HEENT: Atraumatic, PERRLA, Other (Mucous membranes dry) Neck: Supple, 2+ carotid pulse no bruit, No LAD Respiratory: Normal air movement, Diminished (Bilaterally) Cardiovascular: Regular rate/rhythm, Normal S1 S2 Capillary refill: <2 Seconds Gastrointestinal: Hypoactive, No rebound, No guarding, Tenderness (Mild generalized abdominal tenderness) Musculoskeletal: No contractures, No erythema, No tenderness Integumentary: No rashes, No significant lesion, No tenderness/swelling Neurological: Normal speech, Normal strength at 5/5 x4 extr, Normal tone, Normal affect - Studies Laboratory Data (last 24 hrs) 01/16/21 23:20: WBC 16.20 H D, Hgb 10.7 L, Hct 33.5 L, Plt Count 306 01/16/21 23:20: Sodium 140, Potassium 3.9, BUN 60 H, Creatinine 3.06 H, Glucose 116 H, Total Bilirubin 0.5, AST 32, ALT 20, Alkaline Phosphatase 116, Lipase 69 L 01/16/21 23:06: WBC Cancelled, Hgb Cancelled, Hct Cancelled, Plt Count Cancelled 01/16/21 23:06: Sodium Cancelled, Potassium Cancelled, BUN Cancelled, Creatinine Cancelled, Glucose Cancelled, Total Bilirubin Cancelled, AST Cancelled, ALT Cancelled, Alkaline Phosphatase Cancelled, Lipase Cancelled <Steve Light - Last Filed: 01/17/21 04:29> - Studies Laboratory Data (last 24 hrs) 01/16/21 23:20: WBC 16.20 H D, Hgb 10.7 L, Hct 33.5 L, Plt Count 306 01/16/21 23:20: Sodium 140, Potassium 3.9, BUN 60 H, Creatinine 3.06 H, Glucose 116 H, Total Bilirubin 0.5, AST 32, ALT 20, Alkaline Phosphatase 116, Lipase 69 L 01/16/21 23:06: WBC Cancelled, Hgb Cancelled, Hct Cancelled, Plt Count Cancelled 01/16/21 23:06: Sodium Cancelled, Potassium Cancelled, BUN Cancelled, Creatinine Cancelled, Glucose Cancelled, Total Bilirubin Cancelled, AST Cancelled, ALT Cancelled, Alkaline Phosphatase Cancelled, Lipase Cancelled <Laz Rodriguez - Last Filed: 01/17/21 16:26> Assessment and Plan - Plan Assessment Leukocytosis, abdominal pain, nausea and vomiting secondary to transverse colitis ABEL superimposed on CKD 4 Diabetes mellitus type 2 Hypertension Plan Leukocytosis, abdominal pain, nausea and vomiting secondary to transverse colitis: Continue with IV Rocephin/Flagyl. NPO at this time as patient has been vomiting frequently and not tolerating p.o. at this time. Continue with daily Protonix IV. Advance diet as tolerated. DVT prophylaxis heparin 5000 units subcutaneous twice daily. P.r.n. pain and nausea medication. Patient lives at home with her and daughter, daughter reports that patient could use some additional assistance at home as she is moving around less and less, patient likely benefit from home health/physical therapy at discharge. administrative services assistant consult placed, physical therapy consult placed. ABEL superimposed on CKD 4: Nephrology consulted, patient appears dry and dehydrated, continue with IV fluids at this time. Appreciate further input from nephrology. Diabetes mellitus type 2: Q.6h Accu-Chek as patient is NPO at this time, sliding scale insulin therapy. Advance diet as tolerated. Hypertension: Obtain and continue home medications as appropriate, at this time patient's blood pressure is on the low side, will hold for now. Discharge Plan: Home Plan to discharge in: 72 Hours - Advance Directives Does patient have a Living Will: No Does patient have a Durable POA for Healthcare: No - Code Status/Comfort Care Code Status Assessed: Yes (Full code) Critical Care: No Time Spent Managing Pts Care (In Minutes): 55 <Steve Light - Last Filed: 01/17/21 04:29> - Plan Plan of care reviewed as noted above by Steve Light transverse colitis, continue Rocephin/flagyl, bowel rest. seen this AM - improved, but still with nausea, one emesis - ok to have ice chips sparingly nephrology consulted for ABEL on CKD4 <Laz Rodriguez - Last Filed: 01/17/21 16:26>
[2021-01-17] MEDS ORDERED: NA CHLORIDE 0.9% 1,000 ML ONE (04:11)
[2021-01-17 04:58] LABS: Urine Blood NEGATIVE (NEG); Urine Glucose NEGATIVE (NEG); Urine Protein TRACE (NEG); Urine Specific Gravity 1.015 (1.005-1.030)
[2021-01-17 04:59] LABS: Urine Amorphous Sediment 2+ /HPF (NONE SEEN); Urine Bacteria 20-50 /HPF (<20); Urine RBC NONE SEEN /HPF (NONE SEEN)
[2021-01-17] MEDS ORDERED: ACETAMINOPHEN 500 MG TAB PO PRN (05:04)
[2021-01-17] MEDS: NA CHLORIDE 0.9% 1,000 ML IV SCH ×2 (05:04→14:37)
[2021-01-17] MEDS ORDERED: SODIUM CHLORIDE 0.9% 10ML INJ IV PRN (05:04)
[2021-01-17 05:11] VITALS: BMI 29.4
[2021-01-17] MEDS ORDERED: D50W 25 GM/50 ML SYRINGE IV PRN (05:35)
[2021-01-17] MEDS ORDERED: GLUCAGON 1 MG/VIAL IM PRN (05:35)
[2021-01-17] MEDS: INSULIN -REGULAR HUMAN 50 UNIT/0.5 ML ML SQ SCH ×3 (06:00→18:00)
[2021-01-17] MEDS: ONDANSETRON 4 MG/2 ML VIAL IV PRN ×2 (06:14→16:09)
[2021-01-17] MEDS ORDERED: INSULIN -REGULAR HUMAN 50 UNIT/0.5 ML ML SQ SCH (07:30)
[2021-01-17 07:57] LABS: Absolute Lymphocytes (CBC) 1.9 K/uL (0.7-4.9); Basophils % 0.3 % (0-1.3); Hematocrit 28.9 % (36.0-45.0); Lymphocytes % 12.4 % (15.3-44.8); MPV 7.3 fL (7.6-11.3); RBC Red Blood Cell Count 3.23 M/uL (3.86-4.86)
[2021-01-17 08:11] LABS: Magnesium 2.5 mg/dL (1.8-2.4); Potassium 3.7 mmol/L (3.5-5.1)
[2021-01-17] MEDS ORDERED: CEFTRIAXONE 1 GM/NS 50 ML 1 GM/50 ML BAG IV SCH (09:00)
[2021-01-17] MEDS: CEFTRIAXONE/SWI 1gm 1 GM/10 ML SYR IV SCH (10:22)
[2021-01-17] MEDS: PANTOPRAZOLE 40 MG INJ IVP SCH (10:22)
[2021-01-17] MEDS: METRONIDAZOLE 500mg IVPB 500 MG/100 ML BAG IV SCH ×2 (10:27→16:09)
[2021-01-17] MEDS: HEPARIN 5000 UNIT/ML 1 ML VIAL SQ SCH ×2 (10:28→22:18)
--- NOTE | 2021-01-17 18:07 | RAD REPORT ---
CLINICAL HISTORY: Abd pain;Nausea / vomiting COMPARISON: 07/25/2019 TECHNIQUE: CT of the abdomen and pelvis without IV contrast. Evaluation of the solid organs and vasculature is suboptimal due to lack of IV contrast. This exam was performed according to our departmental dose-optimization program, which includes automated exposure control, adjustment of the mA and/or kV according to patient size and/or use of iterative reconstruction technique. FINDINGS: Lung Bases: Coronary artery atherosclerosis. Minimal nonspecific opacities in the lung bases may be related to respiratory motion artifact or dependent atelectasis. Bones: Multilevel degenerative endplate spondylosis and facet arthropathy. Bilateral L5 pars defects. Abdomen: Liver: The liver has normal size and density. Gallbladder: Prior cholecystectomy. Spleen, Pancreas, and Adrenal Glands: The spleen, pancreas, and adrenal glands are unremarkable. Kidneys: The kidneys have normal size without evidence of hydronephrosis. No obstructing ureteral calculi. Mild bilateral renal cortical atrophy. Vasculature: Aortoiliac atherosclerosis. IVC is unremarkable. Retroaortic left renal vein. Stomach: Small hiatal hernia. Other: No free intraperitoneal air. Small amount of free fluid. Scattered mildly prominent mesenteric lymphadenopathy. Pelvis: Bladder: Urinary bladder is unremarkable. Bowel: No dilated loops of large or small bowel. Wall thickening with adjacent inflammatory change of the transverse colon from the hepatic flexure to the distal transverse colon proximal to the splenic flexure. Adjacent mesenteric edema. Scattered diverticula of the colon. Appendix: Not identified. Pelvis: Uterus is not enlarged. IMPRESSION: 1. Findings compatible with acute colitis of the transverse colon. This is most likely an infectious etiology however inflammatory or neoplastic etiology remain possibilities. Continued follow-up after acute illness to exclude other causes of bowel wall thickening recommended. 2. Diverticulosis without evidence of acute diverticulitis. Electronically signed by: Laci Camacho 01/17/2021 2:41 AM EDITOR INDEX Due to temporary technical issues with the PACS/Fluency reporting system, reports are being signed by the in house radiologists without review as a courtesy to insure prompt reporting. The interpreting radiologist is fully responsible for the content of the report. EMILY
--- NOTE | 2021-01-17 20:45 | P.CNS ---
Date of Consult: 01/17/21 Reason for Consult: ABEL/ CKD Requesting Physician: Laz Rodriguez Primary Care Provider: Dr. Watkins Chief Complaint: Colitis History of Present Illness: 70-year-old female with history of diabetes mellitus type 2, hypertension, blindness, CKD presents emergency department for abdominal pain, nausea and vomiting. Patient reports that she has been having difficulty keeping down solid foods for the past 2-3 weeks and then only taking in clear liquids with some abdominal pain still present. Patient evaluated in the ER labs significant for a white blood cell count 16 point to hemoglobin 10.7 dayan tocrit 33.5 creatinine 3.06 GFR 15, baseline GFR appears to be around between [address] demonstrates transverse colitis. Patient reports last bowel movement approximately 1 week ago but also not eating well this time. 23:37 This 70 yrs old Female presents to ER via Wheelchair with complaints of mh7 Vomiting. 23:37 The patient presents to the emergency department with nausea, that is moderate, mh7 vomiting, that is intermittent, abdominal pain, of the right upper quadrant, described as intermittent, vague,\E\ waxing and waning, and does not radiate. Onset: The symptoms/episode began/occurred 3 week(s) ago. Possible causes: unknown. The symptoms are aggravated by food , The symptoms are alleviated by nothing. 23:38 Associated signs and symptoms: Pertinent positives: abdominal pain, constipation, mh7 nausea, vomiting, Pertinent negatives: anorexia, belching, diarrhea, dysuria, fever, flatulence, GI bleeding, hematuria, vaginal discharge. Severity of sym ptoms: At their worst the symptoms were moderate 2 day(s) ago, in the emergency department the symptoms are unchanged. Allergies No Known Allergies Allergy (Verified 09/04/17 17:39) Home medications list reviewed: Yes Home Medications: Bumetanide [Bumex*] 1 mg PO DAILY 07/25/19 Sitagliptin Phosphate [Januvia*] 50 mg PO DAILY 07/25/19 Bumetanide [Bumex] 1 mg PO DAILY 01/17/21 Docusate [Colace Cap*] 100 mg PO DAILY 01/17/21 Escitalopram Oxalate [Lexapro] 5 mg PO DAILY 01/17/21 Ondansetron [Zofran (Odt)*] 4 mg PO PRN PRN 01/17/21 Pioglitazone HCl 30 mg PO DAILY 01/17/21 - Past Medical/Surgical History Diabetic: Yes -: Diabetes mellitus type 2 -: HTN- CONTROLLED -: Blindness -: JESSE -: APPENDECTOMY -: Right great toe amputation Psychosocial/ Personal History: Patient is retired, lives at home with her and daughters - Family History Father Medical History: Hypertension, Diabetes Mother Medical History: Heart disease, Diabetes - Social History Smoking Status: Unknown if ever smoked Alcohol use: No CD- Drugs: No Caffeine use: Yes Place of Residence: Home Review of Systems 10-point ROS is otherwise unremarkable General: Weakness, Malaise Gastrointestinal: Nausea Physical Examination Temp Pulse Resp BP Pulse Ox 98.4 F 79 18 118/51 L 95 01/17/21 16:00 01/17/21 16:00 01/17/21 16:00 01/17/21 16:00 01/17/21 16:00 General: Oriented x3, Cooperative HEENT: Atraumatic Neck: Supple Respiratory: Diminished Cardiovascular: Regular rate/rhythm, Edema Gastrointestinal: Soft and benign, Non-distended, No guarding Musculoskeletal: No clubbing, No contractures Integumentary: No rashes, No cyanosis Neurological: Normal speech Laboratory Data (last 24 hrs) 01/16/21 23:20: WBC 16.20 H D, Hgb 10.7 L, Hct 33.5 L, Plt Count 306 01/16/21 23:20: Sodium 140, Potassium 3.9, BUN 60 H, Creatinine 3.06 H, Glucose 116 H, Total Bilirubin 0.5, AST 32, ALT 20, Alkaline Phosphatase 116, Lipase 69 L 01/16/21 23:06: WBC Cancelled, Hgb Cancelled, Hct Cancelled, Plt Count Cancelled 01/16/21 23:06: Sodium Cancelled, Potassium Cancelled, BUN Cancelled, Creatinine Cancelled, Glucose Cancelled, Total Bilirubin Cancelled, AST Cancelled, ALT Cancelled, Alkaline Phosphatase Cancelled, Lipase Cancelled Imagings Data: EXAM DESCRIPTION: CT - Abdomen Pelvis Wo Contrast - 01/17/2021 5:05 am Head Brain Wo Cont CLINICAL HISTORY: 1 years Female TRAUMA COMPARISON: None. TECHNIQUE: Contiguous axial CT images obtained through the brain without IV contrast. This exam was performed according to our department optimization program which includes automated exposure control, adjustment of the mA and/or kv according to patient size and/or use of iterative reconstruction technique. FINDINGS: The ventricles and sulci appear unremarkable. No abnormal areas of decreased density are identified. No mass lesions. No acute hemorrhage. No fluid or significant mucosal thickening in the visualized paranasal sinuses. No depressed calvarial fractures. IMPRESSION: No acute intracranial abnormality is identified. Conclusions/Impression: A/P CKD IV -No NSAIDs -Change IVF 1/2NS Hypocalcemia -Start Vitamin D HTN with CKD DM II with CKD -RISS Moderate malnutrition -Encourage nutrition Anemia in chronic illness -Monitor H&H Transverse colitis -Continue Jaycee and Yasmin Thank you kindly for the consultation.
[2021-01-17] MEDS: NACHLORIDE 0.45% 1,000 ML IV SCH (22:40)
[2021-01-18] MEDS: METRONIDAZOLE 500mg IVPB 500 MG/100 ML BAG IV SCH ×3 (00:45→17:19)
[2021-01-18] MEDS: INSULIN -REGULAR HUMAN 50 UNIT/0.5 ML ML SQ SCH ×4 (06:00→17:28)
[2021-01-18 06:36] LABS: Absolute Lymphocytes (CBC) 1.3 K/uL (0.7-4.9); Basophils % 0.4 % (0-1.3); Hematocrit 29.6 % (36.0-45.0); Lymphocytes % 9.5 % (15.3-44.8); MPV 7.7 fL (7.6-11.3); RBC Red Blood Cell Count 3.24 M/uL (3.86-4.86)
[2021-01-18 07:30] LABS: Albumin 2.2 g/dL (3.4-5.0); Bilirubin Total 0.4 mg/dL (0.2-1.0); Magnesium 2.4 mg/dL (1.8-2.4); Phosphorus 3.2 mg/dL (2.5-4.9); Potassium 3.9 mmol/L (3.5-5.1); Protein, Total 6.2 g/dL (6.4-8.2); Thyroid Stimulating Hormone 0.578 uIU/mL (0.360-3.740)
[2021-01-18] MEDS ORDERED: POTASSIUM CL SA 10 MEQ TAB PO ONE (08:00)
[2021-01-18] MEDS: NACHLORIDE 0.45% 1,000 ML IV SCH ×2 (10:18→17:00)
[2021-01-18] MEDS: CEFTRIAXONE/SWI 1gm 1 GM/10 ML SYR IV SCH (10:19)
[2021-01-18] MEDS: VITAMIN D 5,000 UNIT CAP PO SCH (10:20)
[2021-01-18] MEDS: HEPARIN 5000 UNIT/ML 1 ML VIAL SQ SCH ×2 (10:20→21:47)
[2021-01-18] MEDS: PANTOPRAZOLE 40 MG INJ IVP SCH (10:20)
[2021-01-18] MEDS: LACTOBACILLUS/ACIDOPHILUS TAB PO SCH ×3 (10:25→21:47)
[2021-01-18] MEDS: CALCITROL 0.25 MCG CAP PO SCH (10:25)
--- NOTE | 2021-01-18 14:11 | P.PN ---
Subjective Date of Service: 01/18/21 Primary Care Provider: Dr. Watkins Chief Complaint: Colitis Patient reports feeling much better today. She denies diarrhea. She states nausea and vomiting has resolved. She is complaining of hunger. Physical Examination - Vital Signs Temperature: 97.1 F Blood Pressure: 143/63 Pulse: 92 Respirations: 19 Pulse Ox (%): 99 - Physical Exam General: Alert, In no apparent distress HEENT: Mucous membr. moist/pink Neck: Supple Respiratory: Clear to auscultation bilaterally, Normal air movement Cardiovascular: No edema, Regular rate/rhythm, Normal S1 S2 Gastrointestinal: Normal bowel sounds, Soft and benign, Non-distended, No tenderness Musculoskeletal: No swelling, No tenderness Integumentary: No rashes Neurological: Normal strength at 5/5 x4 extr Assessment And Plan - Current Problems (Diagnosis) (1) Colitis Current Visit: Yes Status: Acute (2) Acute renal failure superimposed on stage 3 chronic kidney disease Current Visit: No Status: Acute (3) Diabetes mellitus Onset Date: 08/05/15 Current Visit: No Status: Chronic Qualifiers: Diabetes mellitus type: type 2 Diabetes mellitus intermission coordinator insulin use: without chcf use Diabetes mellitus complication status: with circulatory complication Diabetes mellitus complication detail: with peripheral angiopathy without gangrene Qualified Code(s): E11.51 - Type 2 diabetes mellitus with diabetic peripheral angiopathy without gangrene (4) Hypertension Onset Date: 03/17/16 Current Visit: No Status: Chronic Qualifiers: Hypertension type: essential hypertension Qualified Code(s): I10 - Essential (primary) hypertension - Plan Serum creatinine level improved gradually. Patient's symptoms improved. Start clear liquid diet. Cultures: No growth to date. Continue IV antibiotics. Monitor renal function. Insulin sliding scale for glucose management. Possible discharge in a.m.
[2021-01-18] MEDS: ONDANSETRON 4 MG/2 ML VIAL IV PRN ×2 (14:18→21:47)
[2021-01-18] MEDS: MORPHINE 2 MG/ML SYR IV PRN (17:20)
[2021-01-18] MEDS ORDERED: EPOETIN ALFA-EPBX 10,000 UNIT/ML VIAL SQ ONE (18:20)
--- NOTE | 2021-01-18 18:25 | P.PN ---
Date of Service: 01/18/21 Vital Signs Temp Pulse Resp BP Pulse Ox 98.0 F 86 18 155/70 H 85 L 01/18/21 16:00 01/18/21 16:00 01/18/21 17:20 01/18/21 16:00 01/18/21 17:20 Medications Acetaminophen (Acetaminophen 500 Mg Tab) 500 mg PO Q4HP PRN PRN Reason: TEMP > 100' F Calcitriol (Calcitrol 0.25 Mcg Cap) 0.5 mcg PO DAILY [facility] Last Admin: 01/18/21 10:25 Dose: 0.5 mcg Documented by: Cholecalciferol (Vitamin D 5,000 Unit Cap) 5,000 unit PO DAILY [facility] Last Admin: 01/18/21 10:20 Dose: 5,000 unit Documented by: Dextrose (D50w 25 Gm/50 Ml Syringe) 12.5 gm IV PRN PRN; Protocol PRN Reason: HYPOGLYCEMIA Enteral Nutritional Formula (Ensure Clear 200 Ml Can) 237 ml PO BID [facility] Glucagon (Glucagon 1 Mg/Vial) 1 mg IM 1X PRN; Protocol PRN Reason: HYPOGLYCEMIA Heparin Sodium (Porcine) (Heparin 5000 Unit/Ml 1 Ml Vial) 5,000 unit SQ Q12HR [facility] Last Admin: 01/18/21 10:20 Dose: 5,000 unit Documented by: Metronidazole/Sodium Chloride (Flagyl 500mg/100 Ml Iv Premix) 500 mg in 100 mls @ 200 mls/hr IV Q8HR [facility]; Protocol Last Admin: 01/18/21 17:19 Dose: 100 mls Documented by: Ceftriaxone Sodium/Sodium Chloride (Rocephin 1 Gm/10 Ml Swi Ivp) 1 gm in 10 mls @ 600 mls/hr IV DAILY [facility] Last Admin: 01/18/21 10:19 Dose: 10 mls Documented by: Sodium Chloride (Sodium Chloride 0.45%) 1,000 mls @ 100 mls/hr IV .Q10H [facility] Last Admin: 01/18/21 17:00 Dose: Not Given Documented by: Insulin Human Regular (Insulin -Regular Human 50 Unit/0.5 Ml Ml) 0 unit SQ Q6HR [facility]; Protocol Last Admin: 01/18/21 17:28 Dose: Not Given Documented by: Lactobacillus Acidoph/Bulgaricus (Lactobacillus/Acidophilus Tab) 1 tab PO TID [facility] Last Admin: 01/18/21 14:18 Dose: 1 tab Documented by: Morphine Sulfate (Morphine 2 Mg/Ml Syr) 2 mg IV Q6H PRN PRN Reason: Pain scale 5-7 (Moderate) Last Admin: 01/18/21 17:20 Dose: 2 mg Documented by: Ondansetron HCl (Ondansetron 4 Mg/2 Ml Vial) 4 mg IV Q6HP PRN PRN Reason: NAUSEA / VOMITING Last Admin: 01/18/21 14:18 Dose: 4 mg Documented by: Pantoprazole Sodium (Pantoprazole 40 Mg Inj) 40 mg IVP DAILY [facility]; Protocol Last Admin: 01/18/21 10:20 Dose: 40 mg Documented by: Sodium Chloride (Flush Normal Saline 10 Ml) 10 ml IV BID [facility] Last Admin: 01/18/21 10:26 Dose: 10 ml Documented by: Sodium Chloride (Sodium Chloride 0.9% 10ml Inj) 10 ml IV UD PRN PRN Reason: Diluant Assessment/ Plan: Nephrology No acute cardiac or pulmonary complaints. No CP or SOB. Feeling better today. No acute events overnight. Vitals, medications, blood work and imaging reviewed in the chart. General: Oriented x3, Cooperative HEENT: Atraumatic Neck: Supple Respiratory: Diminished Cardiovascular: Regular rate/rhythm, Edema Gastrointestinal: Soft and benign, Non-distended, No guarding Musculoskeletal: No clubbing, No contractures Integumentary: No rashes, No cyanosis Neurological: Normal speech Laboratory Data (last 24 hrs) 01/16/21 23:20: WBC 16.20 H D, Hgb 10.7 L, Hct 33.5 L, Plt Count 306 01/16/21 23:20: Sodium 140, Potassium 3.9, BUN 60 H, Creatinine 3.06 H, Glucose 116 H, Total Bilirubin 0.5, AST 32, ALT 20, Alkaline Phosphatase 116, Lipase 69 L 01/16/21 23:06: WBC Cancelled, Hgb Cancelled, Hct Cancelled, Plt Count Cancelled 01/16/21 23:06: Sodium Cancelled, Potassium Cancelled, BUN Cancelled, Creatinine Cancelled, Glucose Cancelled, Total Bilirubin Cancelled, AST Cancelled, ALT Cancelled, Alkaline Phosphatase Cancelled, Lipase Cancelled Imagings Data: EXAM DESCRIPTION: CT - Abdomen Pelvis Wo Contrast - 01/17/2021 5:05 am Head Brain Wo Cont CLINICAL HISTORY: 1 years Female TRAUMA COMPARISON: None. TECHNIQUE: Contiguous axial CT images obtained through the brain without IV contrast. This exam was performed according to our department optimization program which includes automated exposure control, adjustment of the mA and/or kv according to patient size and/or use of iterative reconstruction technique. FINDINGS: The ventricles and sulci appear unremarkable. No abnormal areas of decreased density are identified. No mass lesions. No acute hemorrhage. No fluid or significant mucosal thickening in the visualized paranasal sinuses. No depressed calvarial fractures. IMPRESSION: No acute intracranial abnormality is identified. Conclusions/Impression: A/P CKD IV -No NSAIDs -Continue IVF 1/2NS Hypocalcemia -Start Calcitriol HTN with CKD DM II with CKD -RISS Moderate malnutrition -Encourage nutrition Anemia in chronic illness -Monitor H&H -Give Epo today Transverse colitis -Continue Rocephin and Flagyl -Advance diet as tolerated -Start probiotic
[2021-01-18] MEDS: ENSURE CLEAR 200 ML CAN PO SCH (21:00)
[2021-01-19] MEDS: METRONIDAZOLE 500mg IVPB 500 MG/100 ML BAG IV SCH ×3 (01:18→16:55)
[2021-01-19] MEDS: NACHLORIDE 0.45% 1,000 ML IV SCH ×2 (01:23→16:55)
[2021-01-19] MEDS: ONDANSETRON 4 MG/2 ML VIAL IV PRN ×3 (03:44→21:18)
[2021-01-19] MEDS: MORPHINE 2 MG/ML SYR IV PRN ×2 (05:38→15:06)
[2021-01-19 06:38] LABS: Absolute Lymphocytes (CBC) 1.5 K/uL (0.7-4.9); Basophils % 0.5 % (0-1.3); Hematocrit 28.5 % (36.0-45.0); Lymphocytes % 11.7 % (15.3-44.8); MPV 7.2 fL (7.6-11.3); RBC Red Blood Cell Count 3.16 M/uL (3.86-4.86)
[2021-01-19 06:55] LABS: Albumin 2.1 g/dL (3.4-5.0); Bilirubin Total 0.4 mg/dL (0.2-1.0); Magnesium 2.4 mg/dL (1.8-2.4); Phosphorus 2.8 mg/dL (2.5-4.9); Potassium 3.6 mmol/L (3.5-5.1)
[2021-01-19] MEDS: VITAMIN D 5,000 UNIT CAP PO SCH (08:56)
[2021-01-19] MEDS: PANTOPRAZOLE 40 MG INJ IVP SCH (08:56)
[2021-01-19] MEDS: LACTOBACILLUS/ACIDOPHILUS TAB PO SCH ×3 (08:56→21:19)
[2021-01-19] MEDS: CALCITROL 0.25 MCG CAP PO SCH (08:56)
[2021-01-19] MEDS: HEPARIN 5000 UNIT/ML 1 ML VIAL SQ SCH ×2 (08:56→21:12)
[2021-01-19] MEDS: CEFTRIAXONE/SWI 1gm 1 GM/10 ML SYR IV SCH (08:57)
[2021-01-19] MEDS: ENSURE CLEAR 200 ML CAN PO SCH (09:00)
--- NOTE | 2021-01-19 11:46 | P.PN ---
Subjective Date of Service: 01/19/21 Primary Care Provider: Dr. Watkins Chief Complaint: Colitis Patient report right upper quadrant pain. Patient experienced vomiting with a clear liquid diet. She denies diarrhea. Physical Examination - Vital Signs Temperature: 96.6 F Blood Pressure: 135/65 Pulse: 82 Respirations: 18 Pulse Ox (%): 94 - Physical Exam General: Alert, In no apparent distress, Obese HEENT: Mucous membr. moist/pink Respiratory: Clear to auscultation bilaterally, Normal air movement Cardiovascular: No edema, Regular rate/rhythm, Normal S1 S2 Capillary refill: <2 Seconds Gastrointestinal: Normal bowel sounds, Soft and benign, Non-distended, Tenderness (Right upper quadrant) Musculoskeletal: No swelling, No tenderness Integumentary: No rashes, No erythema Neurological: Normal strength at 5/5 x4 extr, Cranial nerves 3-12 intact Assessment And Plan - Current Problems (Diagnosis) (1) Colitis Current Visit: Yes Status: Acute (2) Acute renal failure superimposed on stage 3 chronic kidney disease Current Visit: No Status: Acute (3) Diabetes mellitus Onset Date: 08/05/15 Current Visit: No Status: Chronic Qualifiers: Diabetes mellitus type: type 2 Diabetes mellitus terminal system operator insulin use: without terminal system operator use Diabetes mellitus complication status: with circulatory complication Diabetes mellitus complication detail: with peripheral angiopathy without gangrene Qualified Code(s): E11.51 - Type 2 diabetes mellitus with diabetic peripheral angiopathy without gangrene (4) Hypertension Onset Date: 03/17/16 Current Visit: No Status: Chronic Qualifiers: Hypertension type: essential hypertension Qualified Code(s): I10 - Essential (primary) hypertension - Plan Serum creatinine level improving gradually. Patient with persistent right upper quadrant pain and nausea and vomiting Clear liquid diet as tolerated. Obtain liver ultrasound to rule out biliary tree disease. Cultures: No growth to date. Continue IV antibiotics for colitis. Monitor renal function. Insulin sliding scale for glucose management.
[2021-01-19] MEDS: INSULIN -REGULAR HUMAN 50 UNIT/0.5 ML ML SQ SCH ×2 (12:00)
--- NOTE | 2021-01-19 13:16 | PN ---
Date of Progress Note: 01/19/2021 Subjective: The patient was seen and examined at bedside. She is still having some abdominal pain a nd vomiting. She was not able to keep her food down. She has IV fluids going. She had some pain in the right upper quadrant and liver ultrasound is being ordered for further evaluation. Creatinine i s trending down to 2.57, sodium of 142, potassium 3.6. CBC showing leukocytosis which is improving, stable hemoglobin, hematocrit, and platelet count. Physical Examination: General: She appears in no acute distress. Lungs: Clear to auscultation. Abdomen: Soft and nontender. Extremities: Showed no evidence of edema. Current Medications: Include half-normal saline at 100 cc an hour, calcitriol, Rocephin 1 g daily, 1 time dose of Retacrit was given. She is also on Flagyl 500 mg every 8 hours and Rocephin 1 g daily for her antibiotics and 1 time dose of potassium chloride was given yesterday. Impression: 1.Acute on chronic renal insufficiency secondary to acute tubular necrosis, currently with improving renal function. We will continue with IV fluid resuscitation since the patient is not able to take p.o. intake. 2.Colitis. The patient is being treated with Rocephin and Flagyl. May need to expand coverage; how ever, leukocytosis is improving and we will continue liquid diet and transition to full diet when abl e to tolerate. 3.Type 2 diabetes. The patient is being monitored. Blood sugars are being monitored closely and we will follow up. 4.Hypocalcemia, currently on calcitriol. Plan: The patient is overall doing okay. Colitis seems to be improving; however, she is having some right upper quadrant pain. The patient is being evaluated for that. Renal function is improving. Continue with IV fluids and monit or closely. VV/MODL Voice ID: [id number] Report ID: [id number]
--- NOTE | 2021-01-19 14:41 | RAD REPORT ---
EXAM DESCRIPTION: US - Liver Only - 01/19/2021 1:42 pm CLINICAL HISTORY: Right upper quadrant pain COMPARISON: January 17, 2021 cat scan FINDINGS: The liver has a mildly increased echotexture. Hepatopetal flow. A lesion is not visualized . Mild dilatation of the intrahepatic biliary tree The spleen measures 9 centimeters. IMPRESSION: Mildly ncreased hepatic echotexture may indicate mild infiltration. Mild dilatation intrahepatic biliary tree Unremarkable ultrasound spleen
[2021-01-19] MEDS ORDERED: D50W 25 GM/50 ML VIAL IV PRN (16:00)
[2021-01-20] MEDS: ONDANSETRON 4 MG/2 ML VIAL IV PRN ×2 (02:44→09:13)
[2021-01-20] MEDS: NACHLORIDE 0.45% 1,000 ML IV SCH ×2 (02:44→09:00)
[2021-01-20 06:28] LABS: Absolute Lymphocytes (CBC) 1.5 K/uL (0.7-4.9); Basophils % 0.4 % (0-1.3); Hematocrit 29.5 % (36.0-45.0); MPV 7.9 fL (7.6-11.3); RBC Red Blood Cell Count 3.24 M/uL (3.86-4.86)
[2021-01-20 06:51] LABS: Albumin 2.1 g/dL (3.4-5.0); Bilirubin Total 0.3 mg/dL (0.2-1.0); Magnesium 2.2 mg/dL (1.8-2.4); Phosphorus 2.6 mg/dL (2.5-4.9); Potassium 3.5 mmol/L (3.5-5.1)
[2021-01-20] MEDS: ENSURE CLEAR 200 ML CAN PO SCH ×2 (09:00→21:00)
[2021-01-20] MEDS: PANTOPRAZOLE 40 MG INJ IVP SCH (09:00)
[2021-01-20] MEDS: METRONIDAZOLE 500mg IVPB 500 MG/100 ML BAG IV SCH ×2 (09:00→17:00)
[2021-01-20] MEDS: CALCITROL 0.25 MCG CAP PO SCH (09:13)
[2021-01-20] MEDS: LACTOBACILLUS/ACIDOPHILUS TAB PO SCH ×3 (09:13→22:02)
[2021-01-20] MEDS: VITAMIN D 5,000 UNIT CAP PO SCH (09:13)
[2021-01-20] MEDS: HEPARIN 5000 UNIT/ML 1 ML VIAL SQ SCH ×2 (09:14→22:02)
[2021-01-20] MEDS: CEFTRIAXONE/SWI 1gm 1 GM/10 ML SYR IV SCH (09:14)
[2021-01-20 09:32] LABS: Blood Morphology Comment NOT SEEN (NOT SEEN); Platelet Estimate ADEQ; White Blood Cell Scan OK (OK)
--- NOTE | 2021-01-20 11:35 | P.PN ---
Subjective Date of Service: 01/20/21 Primary Care Provider: Dr. Watkins Chief Complaint: Colitis Patient continue to to have nausea and vomits and not tolerating diet. She has not responded much to treatment She denies diarrhea. Physical Examination - Vital Signs Temperature: 97.8 F Blood Pressure: 170/71 Pulse: 92 Respirations: 18 Pulse Ox (%): 94 - Physical Exam General: Alert, In no apparent distress, Other (Awake) HEENT: Mucous membr. moist/pink Respiratory: Clear to auscultation bilaterally, Normal air movement Cardiovascular: No edema, Regular rate/rhythm, Normal S1 S2 Gastrointestinal: Normal bowel sounds, Non-distended, Tenderness (Upper abdomen) Musculoskeletal: No swelling, No erythema Integumentary: No rashes Neurological: Other (No focal motor deficit) Assessment And Plan - Current Problems (Diagnosis) (1) Colitis Current Visit: Yes Status: Acute (2) Acute renal failure superimposed on stage 3 chronic kidney disease Current Visit: No Status: Acute (3) Diabetes mellitus Onset Date: 08/05/15 Current Visit: No Status: Chronic Qualifiers: Diabetes mellitus type: type 2 Diabetes mellitus mcc 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 Patient with persistent nausea and vomiting. Liver ultrasound reviewed. She has cholecystectomy, no biliary duct stone or significant biliary dilatation. Clear liquid diet as tolerated. Cultures: No growth to date. Continue IV Flagyl. IV Rocephin changed to IV cefepime. Change IV fluid to D5 normal saline with with some potassium replacement. Monitor renal function. Insulin sliding scale for glucose management. Monitor blood glucose. Hypoglycemia protocol.
[2021-01-20] MEDS ORDERED: D5NS KCL 20MEQ 20 MEQ/1,000 ML BAG IV SCH (12:00)
[2021-01-20] MEDS: CEFEPIME/SWI 1gm 10 ML IV SCH (12:43)
[2021-01-20] MEDS: MORPHINE 2 MG/ML SYR IV PRN (13:47)
--- NOTE | 2021-01-20 18:25 | P.PN ---
Date of Service: 01/20/21 Vital Signs Temp Pulse Resp BP Pulse Ox 97.5 F 85 18 148/66 H 96 01/20/21 12:00 01/20/21 12:00 01/20/21 13:47 01/20/21 12:00 01/20/21 13:47 Medications Acetaminophen (Acetaminophen 500 Mg Tab) 500 mg PO Q4HP PRN PRN Reason: TEMP > 100' F Calcitriol (Calcitrol 0.25 Mcg Cap) 0.5 mcg PO DAILY [facility] Last Admin: 01/20/21 09:13 Dose: 0.5 mcg Documented by: Cholecalciferol (Vitamin D 5,000 Unit Cap) 5,000 unit PO DAILY [facility] Last Admin: 01/20/21 09:13 Dose: 5,000 unit Documented by: Dextrose (D50w 25 Gm/50 Ml Vial) 12.5 gm IV PRN PRN; Protocol PRN Reason: HYPOGLYCEMIA Last Admin: 01/20/21 07:48 Dose: 12.5 gm Documented by: Enteral Nutritional Formula (Ensure Clear 200 Ml Can) 237 ml PO BID [facility] Last Admin: 01/20/21 09:00 Dose: Not Given Documented by: Glucagon (Glucagon 1 Mg/Vial) 1 mg IM 1X PRN; Protocol PRN Reason: HYPOGLYCEMIA Heparin Sodium (Porcine) (Heparin 5000 Unit/Ml 1 Ml Vial) 5,000 unit SQ Q12HR [facility] Last Admin: 01/20/21 09:14 Dose: 5,000 unit Documented by: Metronidazole/Sodium Chloride (Flagyl 500mg/100 Ml Iv Premix) 500 mg in 100 mls @ 200 mls/hr IV Q8HR [facility]; Protocol Last Admin: 01/20/21 09:00 Dose: 100 mls Documented by: Potassium Chloride/Dextrose/Sod Cl (D5ns With Kcl 20meq/Liter (Premix)) 20 meq in 1,000 mls @ 100 mls/hr IV .Q10H [facility] Last Admin: 01/20/21 12:00 Dose: 1,000 mls Documented by: Cefepime HCl (Maxipime 1 Gm/10 Ml Ivp) 10 mls @ 200 mls/hr IV DAILY [facility] Last Admin: 01/20/21 12:43 Dose: 10 mls Documented by: Insulin Human Regular (Insulin -Regular Human 50 Unit/0.5 Ml Ml) 0 unit SQ Q6HR [facility]; Protocol Last Admin: 01/19/21 12:00 Dose: Not Given Documented by: Lactobacillus Acidoph/Bulgaricus (Lactobacillus/Acidophilus Tab) 1 tab PO TID [facility] Last Admin: 01/20/21 14:56 Dose: 1 tab Documented by: Morphine Sulfate (Morphine 2 Mg/Ml Syr) 2 mg IV Q6H PRN PRN Reason: Pain scale 5-7 (Moderate) Last Admin: 01/20/21 13:47 Dose: 2 mg Documented by: Ondansetron HCl (Ondansetron 4 Mg/2 Ml Vial) 4 mg IV Q6HP PRN PRN Reason: NAUSEA / VOMITING Last Admin: 01/20/21 09:13 Dose: 4 mg Documented by: Pantoprazole Sodium (Pantoprazole 40 Mg Inj) 40 mg IVP DAILY [facility]; Protocol Last Admin: 01/20/21 09:00 Dose: 40 mg Documented by: Sodium Chloride (Flush Normal Saline 10 Ml) 10 ml IV BID [facility] Last Admin: 01/20/21 09:00 Dose: 10 ml Documented by: Sodium Chloride (Sodium Chloride 0.9% 10ml Inj) 10 ml IV UD PRN PRN Reason: Diluant Assessment/ Plan: Nephrology No acute cardiac or pulmonary complaints. No CP or SOB. She is hungry and wanting to eat but is still having nausea and vomiting. No acute events overnight. Vitals, medications, blood work and imaging reviewed in the chart. General: Oriented x3, Cooperative HEENT: Atraumatic Neck: Supple Respiratory: Diminished Cardiovascular: Regular rate/rhythm, Edema Gastrointestinal: Soft and benign, Non-distended, No guarding Musculoskeletal: No clubbing, No contractures Integumentary: No rashes, No cyanosis Neurological: Normal speech Laboratory Data (last 24 hrs) 01/16/21 23:20: WBC 16.20 H D, Hgb 10.7 L, Hct 33.5 L, Plt Count 306 01/16/21 23:20: Sodium 140, Potassium 3.9, BUN 60 H, Creatinine 3.06 H, Glucose 116 H, Total Bilirubin 0.5, AST 32, ALT 20, Alkaline Phosphatase 116, Lipase 69 L 01/16/21 23:06: WBC Cancelled, Hgb Cancelled, Hct Cancelled, Plt Count Cancelled 01/16/21 23:06: Sodium Cancelled, Potassium Cancelled, BUN Cancelled, Creatinine Cancelled, Glucose Cancelled, Total Bilirubin Cancelled, AST Cancelled, ALT Cancelled, Alkaline Phosphatase Cancelled, Lipase Cancelled Imagings Data: EXAM DESCRIPTION: CT - Abdomen Pelvis Wo Contrast - 01/17/2021 5:05 am Head Brain Wo Cont CLINICAL HISTORY: 1 years Female TRAUMA COMPARISON: None. TECHNIQUE: Contiguous axial CT images obtained through the brain without IV contrast. This exam was performed according to our department optimization program which includes automated exposure control, adjustment of the mA and/or kv according to patient size and/or use of iterative reconstruction technique. FINDINGS: The ventricles and sulci appear unremarkable. No abnormal areas of decreased density are identified. No mass lesions. No acute hemorrhage. No fluid or significant mucosal thickening in the visualized paranasal sinuses. No depressed calvarial fractures. IMPRESSION: No acute intracranial abnormality is identified. Conclusions/Impression: CKD IV -No NSAIDs -Change IVF D5 1/2NS Hypokalemia -Replete IV potassium 20meq Hypocalcemia -Continue Calcitriol HTN with CKD DM II with CKD -RISS Moderate malnutrition -Advance nutrition as tolerated Anemia in chronic illness -Monitor H&H -Retacrit PRN Transverse colitis -Continue Rocephin and Flagyl -Advance diet as tolerated -Continue probiotic
[2021-01-20] MEDS ORDERED: KCL 20 MEQ/100 mL IVPB 20 MEQ/100 ML BAG IV SCH (19:00)
[2021-01-20] MEDS: D5 0.45 NS 1,000 ML IV SCH (19:18)
[2021-01-20] MEDS ORDERED: CEFEPIME 1 GM/VIAL IV SCH (21:00)
[2021-01-21] MEDS: MORPHINE 2 MG/ML SYR IV PRN ×3 (00:52→19:12)
[2021-01-21] MEDS: ONDANSETRON 4 MG/2 ML VIAL IV PRN ×3 (00:53→19:12)
[2021-01-21] MEDS: METRONIDAZOLE 500mg IVPB 500 MG/100 ML BAG IV SCH ×3 (01:16→16:51)
[2021-01-21] MEDS: INSULIN -REGULAR HUMAN 50 UNIT/0.5 ML ML SQ SCH ×4 (06:00→18:00)
[2021-01-21] MEDS: D5 0.45 NS 1,000 ML IV SCH ×2 (06:27→16:51)
[2021-01-21] MEDS: ENSURE CLEAR 200 ML CAN PO SCH ×2 (09:00→21:00)
[2021-01-21] MEDS: CALCITROL 0.25 MCG CAP PO SCH (09:25)
[2021-01-21] MEDS: LACTOBACILLUS/ACIDOPHILUS TAB PO SCH ×3 (09:25→21:16)
[2021-01-21] MEDS: CEFEPIME/SWI 1gm 10 ML IV SCH (09:25)
[2021-01-21] MEDS: PANTOPRAZOLE 40 MG INJ IVP SCH (09:25)
[2021-01-21] MEDS: VITAMIN D 5,000 UNIT CAP PO SCH (09:25)
[2021-01-21] MEDS: HEPARIN 5000 UNIT/ML 1 ML VIAL SQ SCH ×2 (09:25→21:17)
--- NOTE | 2021-01-21 15:06 | P.PN ---
Subjective Date of Service: 01/21/21 Primary Care Provider: Dr. Watkins Chief Complaint: Colitis Patient continue to complain of abdominal pain and nausea. She has pain vomiting and not tolerating diet. Physical Examination - Vital Signs Temperature: 97.2 F Blood Pressure: 127/56 Pulse: 84 Respirations: 18 Pulse Ox (%): 94 - Physical Exam General: Alert, In no apparent distress HEENT: Mucous membr. moist/pink Respiratory: Clear to auscultation bilaterally, Normal air movement Cardiovascular: Regular rate/rhythm, Normal S1 S2 Gastrointestinal: Normal bowel sounds, Non-distended, No rebound, No guarding, Tenderness (Upper abdomen) Musculoskeletal: No swelling, No tenderness Integumentary: No rashes Neurological: Normal strength at 5/5 x4 extr Assessment And Plan - Current Problems (Diagnosis) (1) Colitis Current Visit: Yes Status: Acute (2) Acute renal failure superimposed on stage 3 chronic kidney disease Current Visit: No Status: Acute (3) Diabetes mellitus Onset Date: 08/05/15 Current Visit: No Status: Chronic Qualifiers: Diabetes mellitus type: type 2 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 Patient has not responded to antibiotics. Added IV steroid to cover inflammatory colitis. General surgery consult Liver ultrasound reviewed. She has cholecystectomy, no biliary duct stone or significant biliary dilatation. Clear liquid diet as tolerated. Cultures: No growth to date. Continue IV Flagyl and IV cefepime. Continue D5 normal saline with with some potassium replacement. Monitor renal function. Insulin sliding scale for glucose management. Monitor blood glucose. Hypoglycemia protocol.
--- NOTE | 2021-01-21 15:51 | P.CNS ---
Date of Consult: 01/21/21 PC: I was asked to see this 70-year-old female in regards to abdominal pain. HPC: Patient apparently had been complaining of some left lower quadrant abdominal pain. Her daughter tells me that this is been going on for a while. She has a history of diverticulosis. PMH: Diabetes, hypertension, blind PSHx: Previous cholecystectomy, history of colitis SOC: Allergies SYS REVIEW: Otherwise has been a relatively okay health O/E awake alert vital signs are stable Chest: Chest movement equal bilaterally ABD: Have been is soft nontender at the moment LOCO: Intact DATA: Had elevated white cell count, CT scan showed possible transverse colitis IMPRESSION: Transverse colitis, has been on antibiotics PLAN: Continue current therapy, patient is room not require surgical intervention at this time. She could have this evaluated as an outpatient procedure after her acute episode is over.
[2021-01-21] MEDS ORDERED: POTASSIUM CL 40 MEQ in NA CHLORIDE 0.9% 500 ML IV SCH (16:00)
[2021-01-21] MEDS: METHYLPREDNISOLONE 40 MG INJ IV SCH (17:49)
[2021-01-21 18:04] LABS: Potassium 3.7 mmol/L (3.5-5.1)
--- NOTE | 2021-01-21 21:18 | P.PN ---
Date of Service: 01/21/21 Vital Signs Temp Pulse Resp BP Pulse Ox 97.4 F 84 16 133/60 94 01/21/21 16:00 01/21/21 16:00 01/21/21 16:00 01/21/21 16:00 01/21/21 16:00 Medications Acetaminophen (Acetaminophen 500 Mg Tab) 500 mg PO Q4HP PRN PRN Reason: TEMP > 100' F Calcitriol (Calcitrol 0.25 Mcg Cap) 0.5 mcg PO DAILY [facility] Last Admin: 01/21/21 09:25 Dose: 0.5 mcg Documented by: Cholecalciferol (Vitamin D 5,000 Unit Cap) 5,000 unit PO DAILY [facility] Last Admin: 01/21/21 09:25 Dose: 5,000 unit Documented by: Dextrose (D50w 25 Gm/50 Ml Vial) 12.5 gm IV PRN PRN; Protocol PRN Reason: HYPOGLYCEMIA Last Admin: 01/20/21 07:48 Dose: 12.5 gm Documented by: Enteral Nutritional Formula (Ensure Clear 200 Ml Can) 237 ml PO BID [facility] Last Admin: 01/21/21 09:00 Dose: Not Given Documented by: Glucagon (Glucagon 1 Mg/Vial) 1 mg IM 1X PRN; Protocol PRN Reason: HYPOGLYCEMIA Heparin Sodium (Porcine) (Heparin 5000 Unit/Ml 1 Ml Vial) 5,000 unit SQ Q12HR [facility] Last Admin: 01/21/21 09:25 Dose: 5,000 unit Documented by: Metronidazole/Sodium Chloride (Flagyl 500mg/100 Ml Iv Premix) 500 mg in 100 mls @ 200 mls/hr IV Q8HR [facility]; Protocol Last Admin: 01/21/21 16:51 Dose: 100 mls Documented by: Cefepime HCl (Maxipime 1 Gm/10 Ml Ivp) 10 mls @ 200 mls/hr IV DAILY [facility] Last Admin: 01/21/21 09:25 Dose: 10 mls Documented by: Dextrose/Sodium Chloride (Dextrose 5% O.45% Saline) 1,000 mls @ 100 mls/hr IV .Q10H [facility] Last Admin: 01/21/21 16:51 Dose: 1,000 mls Documented by: Insulin Human Regular (Insulin -Regular Human 50 Unit/0.5 Ml Ml) 0 unit SQ Q6HR [facility]; Protocol Last Admin: 01/21/21 12:00 Dose: Not Given Documented by: Lactobacillus Acidoph/Bulgaricus (Lactobacillus/Acidophilus Tab) 1 tab PO TID [facility] Last Admin: 01/21/21 14:59 Dose: 1 tab Documented by: Methylprednisolone Sodium Succinate (Methylprednisolone 40 Mg Inj) 40 mg IV Q6HR [facility] Last Admin: 01/21/21 17:49 Dose: 40 mg Documented by: Metoclopramide HCl (Metoclopramide 10 Mg/2ml Inj) 10 mg IV Q8H PRN PRN Reason: NAUSEA / VOMITING Morphine Sulfate (Morphine 2 Mg/Ml Syr) 2 mg IV Q6H PRN PRN Reason: Pain scale 5-7 (Moderate) Last Admin: 01/21/21 19:12 Dose: 2 mg Documented by: Ondansetron HCl (Ondansetron 4 Mg/2 Ml Vial) 4 mg IV Q6HP PRN PRN Reason: NAUSEA / VOMITING Last Admin: 01/21/21 19:12 Dose: 4 mg Documented by: Pantoprazole Sodium (Pantoprazole 40 Mg Inj) 40 mg IVP DAILY [facility], [facility]; Protocol Last Admin: 01/21/21 09:25 Dose: 40 mg Documented by: Sodium Chloride (Flush Normal Saline 10 Ml) 10 ml IV BID [facility] Last Admin: 01/21/21 09:00 Dose: 10 ml Documented by: Sodium Chloride (Sodium Chloride 0.9% 10ml Inj) 10 ml IV UD PRN PRN Reason: Diluant Assessment/ Plan: Nephrology No acute cardiac or pulmonary complaints. No CP or SOB. She is hungry and wanting to eat but is still having nausea and vomiting. Wi tnessed vomiting at the time of evaluation. No acute events overnight. Vitals, medications, blood work and imaging reviewed in the chart. General: Oriented x3, Cooperative HEENT: Atraumatic Neck: Supple Respiratory: Diminished Cardiovascular: Regular rate/rhythm, Edema Gastrointestinal: Tender Musculoskeletal: No clubbing, No contractures Integumentary: No rashes, No cyanosis Neurological: Normal speech Laboratory Data (last 24 hrs) 01/16/21 23:20: WBC 16.20 H D, Hgb 10.7 L, Hct 33.5 L, Plt Count 306 01/16/21 23:20: Sodium 140, Potassium 3.9, BUN 60 H, Creatinine 3.06 H, Glucose 116 H, Total Bilirubin 0.5, AST 32, ALT 20, Alkaline Phosphatase 116, Lipase 69 L 01/16/21 23:06: WBC Cancelled, Hgb Cancelled, Hct Cancelled, Plt Count Cancelled 01/16/21 23:06: Sodium Cancelled, Potassium Cancelled, BUN Cancelled, Creatinine Cancelled, Glucose Cancelled, Total Bilirubin Cancelled, AST Cancelled, ALT Cancelled, Alkaline Phosphatase Cancelled, Lipase Cancelled Imagings Data: EXAM DESCRIPTION: CT - Abdomen Pelvis Wo Contrast - 01/17/2021 5:05 am Head Brain Wo Cont CLINICAL HISTORY: 1 years Female TRAUMA COMPARISON: None. TECHNIQUE: Contiguous axial CT images obtained through the brain without IV contrast. This exam was performed according to our department optimization program which includes automated exposure control, adjustment of the mA and/or kv according to patient size and/or use of iterative reconstruction technique. FINDINGS: The ventricles and sulci appear unremarkable. No abnormal areas of decreased density are identified. No mass lesions. No acute hemorrhage. No fluid or significant mucosal thickening in the visualized paranasal sinuses. No depressed calvarial fractures. IMPRESSION: No acute intracranial abnormality is identified. Conclusions/Impression: CKD IV -No NSAIDs -Change IVF D5 1/2NS Hypokalemia -Replete IV potassium 40meq Hypocalcemia -Continue Calcitriol HTN with CKD DM II with CKD -RISS Moderate malnutrition -Advance nutrition as tolerated Anemia in chronic illness -Monitor H&H -Retacrit PRN Transverse colitis -Continue Rocephin and Flagyl -Advance diet as tolerated -Continue probiotic -Agree with steroids -Start Reglan IV q8h for possible DM gastroparesis
[2021-01-22] MEDS: METHYLPREDNISOLONE 40 MG INJ IV SCH ×4 (00:40→17:18)
[2021-01-22] MEDS: METRONIDAZOLE 500mg IVPB 500 MG/100 ML BAG IV SCH ×3 (00:41→16:00)
[2021-01-22] MEDS: D5 0.45 NS 1,000 ML IV SCH ×2 (01:00→12:01)
[2021-01-22] MEDS: INSULIN -REGULAR HUMAN 50 UNIT/0.5 ML ML SQ SCH ×5 (05:32→21:00)
[2021-01-22 06:44] LABS: Absolute Lymphocytes (CBC) 0.8 K/uL (0.7-4.9); Basophils % 0.1 % (0-1.3); Hematocrit 31.5 % (36.0-45.0); Lymphocytes % 4.8 % (15.3-44.8); MPV 7.5 fL (7.6-11.3)
[2021-01-22 07:02] LABS: Albumin 1.9 g/dL (3.4-5.0); Bilirubin Total 0.3 mg/dL (0.2-1.0); Potassium 4.3 mmol/L (3.5-5.1); Protein, Total 6.1 g/dL (6.4-8.2)
[2021-01-22] MEDS: ENSURE CLEAR 200 ML CAN PO SCH ×2 (09:00→21:00)
[2021-01-22] MEDS: PANTOPRAZOLE 40 MG INJ IVP SCH (09:00)
[2021-01-22] MEDS: LACTOBACILLUS/ACIDOPHILUS TAB PO SCH ×3 (09:47→21:52)
[2021-01-22] MEDS: CALCITROL 0.25 MCG CAP PO SCH (09:47)
[2021-01-22] MEDS: VITAMIN D 5,000 UNIT CAP PO SCH (09:47)
[2021-01-22] MEDS: CEFEPIME/SWI 1gm 10 ML IV SCH (09:48)
[2021-01-22] MEDS: ONDANSETRON 4 MG/2 ML VIAL IV PRN ×3 (09:48→17:45)
[2021-01-22] MEDS: HEPARIN 5000 UNIT/ML 1 ML VIAL SQ SCH ×2 (09:48→21:52)
[2021-01-22] MEDS ORDERED: GLUCAGON 1 MG/VIAL IM PRN (09:55)
[2021-01-22] MEDS ORDERED: D50W 25 GM/50 ML SYRINGE IV PRN (09:55)
[2021-01-22] MEDS: MORPHINE 2 MG/ML SYR IV PRN ×3 (10:02→17:45)
--- NOTE | 2021-01-22 11:58 | P.PN ---
Subjective Date of Service: 01/22/21 Primary Care Provider: Dr. Watkins Chief Complaint: Colitis Patient states she feels better today. She states her abdominal pain has improved and she is desiring her diet to be advanced. She vomited once last night. Physical Examination - Vital Signs Temperature: 97.7 F Blood Pressure: 187/83 Pulse: 88 Respirations: 18 Pulse Ox (%): 94 - Physical Exam General: Alert, In no apparent distress HEENT: Mucous membr. moist/pink Respiratory: Clear to auscultation bilaterally, Normal air movement Cardiovascular: No edema, Regular rate/rhythm, Normal S1 S2 Gastrointestinal: Normal bowel sounds, Soft and benign, No rebound, No guarding, Tenderness (Mild tenderness in upper abdomen) Musculoskeletal: No swelling, No tenderness Integumentary: No rashes, No erythema Neurological: Normal strength at 5/5 x4 extr Assessment And Plan - Current Problems (Diagnosis) (1) Colitis Current Visit: Yes Status: Acute (2) Acute renal failure superimposed on stage 3 chronic kidney disease Current Visit: No Status: Acute (3) Diabetes mellitus Onset Date: 08/05/15 Current Visit: No Status: Chronic Qualifiers: Diabetes mellitus type: type 2 Diabetes mellitus terminal worker insulin use: without terminal worker use Diabetes mellitus complication status: with circulatory complication Diabetes mellitus complication detail: with peripheral angiopathy without gangrene Qualified Code(s): E11.51 - Type 2 diabetes mellitus with diabetic peripheral angiopathy without gangrene (4) Hypertension Onset Date: 03/17/16 Current Visit: No Status: Chronic Qualifiers: Hypertension type: essential hypertension Qualified Code(s): I10 - Essential (primary) hypertension (5) Hypoglycemia Current Visit: Yes Status: Acute - Plan Differential diagnosis for colitis will include infectious colitis versus inflammatory. Patient is improving with the current treatment. Continue IV antibiotics and steroid General surgery input appreciated. Liver ultrasound reviewed. She has cholecystectomy, no biliary duct stone or significant biliary dilatation. Advanced to soft diet as tolerated. Continue D5 normal saline with with some potassium replacement. Discontinue IV fluid once patient's oral intake improve. Monitor renal function. Insulin sliding scale for glucose management. Monitor blood glucose. Hypoglycemia protocol.
[2021-01-22] MEDS: METOCLOPRAMIDE 10 MG/2mL INJ IV PRN ×2 (12:01→22:26)
[2021-01-22 12:34] LABS: Urine Appearance CLOUDY; Urine Bilirubin NEGATIVE (NEG); Urine Blood NEGATIVE (NEG); Urine Color DK YELLOW; Urine Glucose NEGATIVE (NEG); Urine Protein 1+ (NEG); Urine Specific Gravity 1.015 (1.005-1.030); Urine Urobilinogen 0.2 mg/dL (0.2-1.0)
[2021-01-22 12:39] LABS: Urine Microscopic Reflex ORDER UMIC
[2021-01-22 12:44] LABS: Urine Bacteria 20-50 /HPF (<20); Urine RBC <5 /HPF (NONE SEEN)
--- NOTE | 2021-01-22 15:27 | P.PN ---
Date of Service: 01/22/21 Vital Signs Temp Pulse Resp BP Pulse Ox 97.5 F 88 18 148/76 H 94 01/22/21 12:00 01/22/21 12:00 01/22/21 12:00 01/22/21 12:00 01/22/21 12:00 Medications Acetaminophen (Acetaminophen 500 Mg Tab) 500 mg PO Q4HP PRN PRN Reason: TEMP > 100' F Calcitriol (Calcitrol 0.25 Mcg Cap) 0.5 mcg PO DAILY [facility] Last Admin: 01/22/21 09:47 Dose: 0.5 mcg Documented by: Cholecalciferol (Vitamin D 5,000 Unit Cap) 5,000 unit PO DAILY [facility] Last Admin: 01/22/21 09:47 Dose: 5,000 unit Documented by: Dextrose (D50w 25 Gm/50 Ml Vial) 12.5 gm IV PRN PRN; Protocol PRN Reason: HYPOGLYCEMIA Last Admin: 01/20/21 07:48 Dose: 12.5 gm Documented by: Dextrose (D50w 25 Gm/50 Ml Syringe) 12.5 gm IV PRN PRN; Protocol PRN Reason: HYPOGLYCEMIA Enteral Nutritional Formula (Ensure Clear 200 Ml Can) 237 ml PO BID [facility] Last Admin: 01/22/21 09:00 Dose: Not Given Documented by: Glucagon (Glucagon 1 Mg/Vial) 1 mg IM 1X PRN; Protocol PRN Reason: HYPOGLYCEMIA Heparin Sodium (Porcine) (Heparin 5000 Unit/Ml 1 Ml Vial) 5,000 unit SQ Q12HR [facility] Last Admin: 01/22/21 09:48 Dose: 5,000 unit Documented by: Metronidazole/Sodium Chloride (Flagyl 500mg/100 Ml Iv Premix) 500 mg in 100 mls @ 200 mls/hr IV Q8HR [facility]; Protocol Last Admin: 01/22/21 09:49 Dose: 100 mls Documented by: Cefepime HCl (Maxipime 1 Gm/10 Ml Ivp) 10 mls @ 200 mls/hr IV DAILY [facility] Last Admin: 01/22/21 09:48 Dose: 10 mls Documented by: Dextrose/Sodium Chloride (Dextrose 5% O.45% Saline) 1,000 mls @ 100 mls/hr IV .Q10H [facility] Last Admin: 01/22/21 12:01 Dose: 1,000 mls Documented by: Insulin Human Regular (Insulin -Regular Human 50 Unit/0.5 Ml Ml) 0 unit SQ ACHS [facility]; Protocol Last Admin: 01/22/21 12:01 Dose: 2 unit Documented by: Lactobacillus Acidoph/Bulgaricus (Lactobacillus/Acidophilus Tab) 1 tab PO TID [facility] Last Admin: 01/22/21 14:07 Dose: 1 tab Documented by: Methylprednisolone Sodium Succinate (Methylprednisolone 40 Mg Inj) 40 mg IV Q6HR [facility] Last Admin: 01/22/21 12:01 Dose: 40 mg Documented by: Metoclopramide HCl (Metoclopramide 10 Mg/2ml Inj) 10 mg IV Q8H PRN PRN Reason: NAUSEA / VOMITING Last Admin: 01/22/21 12:01 Dose: 10 mg Documented by: Morphine Sulfate (Morphine 2 Mg/Ml Syr) 2 mg IV Q6H PRN PRN Reason: Pain scale 5-7 (Moderate) Last Admin: 01/22/21 10:02 Dose: 2 mg Documented by: Ondansetron HCl (Ondansetron 4 Mg/2 Ml Vial) 4 mg IV Q6HP PRN PRN Reason: NAUSEA / VOMITING Last Admin: 01/22/21 09:48 Dose: 4 mg Documented by: Pantoprazole Sodium (Pantoprazole 40 Mg Inj) 40 mg IVP DAILY [facility]; Protocol Last Admin: 01/22/21 09:00 Dose: 40 mg Documented by: Sodium Chloride (Flush Normal Saline 10 Ml) 10 ml IV BID [facility] Last Admin: 01/22/21 09:00 Dose: Not Given Documented by: Sodium Chloride (Sodium Chloride 0.9% 10ml Inj) 10 ml IV UD PRN PRN Reason: Diluant Assessment/ Plan: Nephrology No acute cardiac or pulmonary complaints. No CP or SOB. Feeling better with decreased vomiting today. +Appetite No acute events overnight. Vitals, medications, blood work and imaging reviewed in the chart. General: Oriented x3, Cooperative HEENT: Atraumatic Neck: Supple Respiratory: Diminished Cardiovascular: Regular rate/rhythm, Edema Gastrointestinal: Tender Musculoskeletal: No clubbing, No contractures Integumentary: No rashes, No cyanosis Neurological: Normal speech Laboratory Data (last 24 hrs) 01/16/21 23:20: WBC 16.20 H D, Hgb 10.7 L, Hct 33.5 L, Plt Count 306 01/16/21 23:20: Sodium 140, Potassium 3.9, BUN 60 H, Creatinine 3.06 H, Glucose 116 H, Total Bilirubin 0.5, AST 32, ALT 20, Alkaline Phosphatase 116, Lipase 69 L 01/16/21 23:06: WBC Cancelled, Hgb Cancelled, Hct Cancelled, Plt Count Cancelled 01/16/21 23:06: Sodium Cancelled, Potassium Cancelled, BUN Cancelled, Creatinine Cancelled, Glucose Cancelled, Total Bilirubin Cancelled, AST Cancelled, ALT Cancelled, Alkaline Phosphatase Cancelled, Lipase Cancelled Imagings Data: EXAM DESCRIPTION: CT - Abdomen Pelvis Wo Contrast - 01/17/2021 5:05 am Head Brain Wo Cont CLINICAL HISTORY: 1 years Female TRAUMA COMPARISON: None. TECHNIQUE: Contiguous axial CT images obtained through the brain without IV contrast. This exam was performed according to our department optimization program which includes automated exposure control, adjustment of the mA and/or kv according to patient size and/or use of iterative reconstruction technique. FINDINGS: The ventricles and sulci appear unremarkable. No abnormal areas of decreased density are identified. No mass lesions. No acute hemorrhage. No fluid or significant mucosal thickening in the visualized paranasal sinuses. No depressed calvarial fractures. IMPRESSION: No acute intracranial abnormality is identified. Conclusions/Impression: CKD IV -No NSAIDs -Change IVF D5 1/2NS Hypokalemia -Replete IV potassium 40meq Hypocalcemia -Continue Calcitriol HTN with CKD DM II with CKD -RISS Severe malnutrition -Advance nutrition as tolerated -Give IV Albumin Anemia in chronic illness -Monitor H&H -Retacrit PRN Transverse colitis -Continue Rocephin and Flagyl -Advance diet as tolerated -Continue probiotic -Agree with steroids -Continue Reglan IV q8h for possible DM gastroparesis Case reviewed with Dr. Grider
[2021-01-22] MEDS: ALBUMIN HUMAN 25% 100 ML IV SCH ×2 (15:59→22:00)
[2021-01-23] MEDS: METRONIDAZOLE 500mg IVPB 500 MG/100 ML BAG IV SCH ×2 (01:00→08:33)
[2021-01-23] MEDS: D5 0.45 NS 1,000 ML IV SCH ×3 (05:03→17:47)
[2021-01-23] MEDS: METHYLPREDNISOLONE 40 MG INJ IV SCH ×4 (05:27→17:58)
[2021-01-23] MEDS: MORPHINE 2 MG/ML SYR IV PRN ×3 (05:27→19:53)
[2021-01-23 05:50] LABS: Absolute Lymphocytes (CBC) 0.8 K/uL (0.7-4.9); Basophils % 0.1 % (0-1.3); Hematocrit 28.5 % (36.0-45.0); Lymphocytes % 3.9 % (15.3-44.8); MPV 7.2 fL (7.6-11.3); RBC Red Blood Cell Count 3.12 M/uL (3.86-4.86)
[2021-01-23 06:26] LABS: Potassium 3.7 mmol/L (3.5-5.1)
[2021-01-23 06:58] LABS: Blood Morphology Comment NOT SEEN (NOT SEEN); Platelet Estimate ADEQ
[2021-01-23] MEDS ORDERED: ALBUMIN HUMAN 25% 100 ML IV SCH (08:00)
[2021-01-23] MEDS: PANTOPRAZOLE 40 MG INJ IVP SCH (08:33)
[2021-01-23] MEDS: HEPARIN 5000 UNIT/ML 1 ML VIAL SQ SCH ×2 (08:33→21:15)
[2021-01-23] MEDS: ONDANSETRON 4 MG/2 ML VIAL IV PRN ×2 (08:33→19:58)
[2021-01-23] MEDS: METOCLOPRAMIDE 10 MG/2mL INJ IV PRN (08:33)
[2021-01-23] MEDS: INSULIN -REGULAR HUMAN 50 UNIT/0.5 ML ML SQ SCH ×4 (08:34→21:49)
[2021-01-23] MEDS: CEFEPIME/SWI 1gm 10 ML IV SCH (09:00)
[2021-01-23] MEDS: CALCITROL 0.25 MCG CAP PO SCH (09:00)
[2021-01-23] MEDS: ENSURE CLEAR 200 ML CAN PO SCH ×2 (09:00→21:00)
[2021-01-23] MEDS: VITAMIN D 5,000 UNIT CAP PO SCH (09:00)
[2021-01-23] MEDS ORDERED: POTASSIUM 25 MEQ EFFERV TAB PO ONE (09:00)
[2021-01-23] MEDS: LACTOBACILLUS/ACIDOPHILUS TAB PO SCH ×3 (09:00→21:12)
[2021-01-23] MEDS ORDERED: MORPHINE 4 MG/ML SYR IV ONE (09:34)
--- NOTE | 2021-01-23 11:33 | P.PN ---
Subjective Date of Service: 01/23/21 Primary Care Provider: Dr. Watkins Chief Complaint: Colitis Patient complaining of upper abdominal pain today. She vomited last night. She is not tolerating diet. WBC count has increased. Patient is on steroids. Physical Examination - Vital Signs Temperature: 97.7 F Blood Pressure: 190/80 Pulse: 81 Respirations: 21 Pulse Ox (%): 93 - Physical Exam General: Alert, Oriented x3, Moderate distress HEENT: Mucous membr. moist/pink Respiratory: Clear to auscultation bilaterally, Normal air movement Cardiovascular: No edema, Regular rate/rhythm, Normal S1 S2 Gastrointestinal: Normal bowel sounds, Non-distended, No rebound, No guarding, Tenderness (Upper abdomen) Musculoskeletal: No swelling, No tenderness Integumentary: No rashes Neurological: Other (No focal motor deficits) Assessment And Plan - Current Problems (Diagnosis) (1) Colitis Current Visit: Yes Status: Acute (2) Acute renal failure superimposed on stage 3 chronic kidney disease Current Visit: No Status: Acute (3) Diabetes mellitus Onset Date: 08/05/15 Current Visit: No Status: Chronic Qualifiers: Diabetes mellitus type: type 2 Diabetes mellitus terminal gauger insulin use: without terminal gauger use Diabetes mellitus complication status: with circulatory complication Diabetes mellitus complication detail: with peripheral angiopathy without gangrene Qualified Code(s): E11.51 - Type 2 diabetes mellitus with diabetic peripheral angiopathy without gangrene (4) Hypertension Onset Date: 03/17/16 Current Visit: No Status: Chronic Qualifiers: Hypertension type: essential hypertension Qualified Code(s): I10 - Essential (primary) hypertension (5) Hypoglycemia Current Visit: Yes Status: Acute - Plan Differential diagnosis for colitis will include infectious colitis versus inflammatory. Continue IV steroid. Change IV antibiotics to IV Zosyn. General surgery input appreciated. Liver ultrasound reviewed. She has cholecystectomy, no biliary duct stone or significant biliary dilatation. Clear liquid diet as tolerated. GI consult if available next week. Continue D5 normal saline with with some potassium replacement. Monitor renal function. Insulin sliding scale for glucose management. Monitor blood glucose. Hypoglycemia protocol.
[2021-01-23] MEDS: PIPER/TAZO/NS 2.25gm 2.25 GM/50 ML BAG IVPB SCH (17:47)
[2021-01-23] MEDS: HYDRALAZINE HCL 20 MG/ML VIAL IV PRN (19:12)
[2021-01-23] MEDS ORDERED: MORPHINE 2 MG/ML SYR IV ONE (20:21)
[2021-01-24] MEDS: METHYLPREDNISOLONE 40 MG INJ IV SCH ×4 (01:09→17:02)
[2021-01-24] MEDS: PIPER/TAZO/NS 2.25gm 2.25 GM/50 ML BAG IVPB SCH ×3 (01:09→17:02)
[2021-01-24] MEDS: D5 0.45 NS 1,000 ML IV SCH ×4 (03:00→23:00)
[2021-01-24] MEDS: MORPHINE 4 MG/ML SYR IV PRN ×2 (05:30→14:38)
[2021-01-24 05:33] LABS: Absolute Lymphocytes (CBC) 0.4 K/uL (0.7-4.9); Hematocrit 32.3 % (36.0-45.0); Lymphocytes % 1.9 % (15.3-44.8); MPV 7.7 fL (7.6-11.3); RBC Red Blood Cell Count 3.55 M/uL (3.86-4.86)
[2021-01-24 05:40] LABS: Potassium 3.5 mmol/L (3.5-5.1)
[2021-01-24] MEDS ORDERED: KCL 20 MEQ/100 mL IVPB 20 MEQ/100 ML BAG IV ONE (06:00)
[2021-01-24] MEDS: INSULIN -REGULAR HUMAN 50 UNIT/0.5 ML ML SQ SCH ×4 (08:43→20:06)
[2021-01-24] MEDS: PANTOPRAZOLE 40 MG INJ IVP SCH (08:49)
[2021-01-24] MEDS: LACTOBACILLUS/ACIDOPHILUS TAB PO SCH ×3 (11:11→20:03)
[2021-01-24] MEDS: VITAMIN D 5,000 UNIT CAP PO SCH (11:11)
[2021-01-24] MEDS: CALCITROL 0.25 MCG CAP PO SCH (11:11)
[2021-01-24] MEDS: HEPARIN 5000 UNIT/ML 1 ML VIAL SQ SCH ×2 (11:11→20:03)
[2021-01-24] MEDS: ENSURE CLEAR 200 ML CAN PO SCH ×2 (11:12→20:03)
--- NOTE | 2021-01-24 11:59 | RAD REPORT ---
EXAM DESCRIPTION: CT - Abdomen Pelvis W Contrast - 01/24/2021 11:11 am CLINICAL HISTORY: acute abdomenpain COMPARISON: Abdomen Pelvis Wo Contrast dated 01/17/2021; Stone Protocol dated 07/25/2019 TECHNIQUE: Biphasic, helical CT imaging of the abdomen and pelvis was performed following 100 ml non -ionic IV contrast. Oral contrast was given. All CT scans are performed using dose optimization technique as appropriate and may include automated exposure control or mA/KV adjustment according to patient size. FINDINGS: Minimal bilateral pleural effusions have developed along with posterior gutter atelectasis . No pericardial effusion. No focal liver parenchymal lesion identified. No splenomegaly or focal splenic finding. Dense calcifi cations are seen in the splenic artery. No mass of the pancreatic parenchyma identified. There is atr ophy change in the body and head of the pancreas. This pattern is not substantially different dating back to the 2019 comparison. Patient does have some small amount of peripancreatic fluid in stranding . Patient has fluid in stranding throughout much of the peritoneal cavity. Acute pancreatitis would n ot be suspected without supporting laboratory findings. Gallbladder is absent. Biliary tree is mildly dilated but not outside of normal range for a post chol ecystectomy patient. Symmetric renal function is seen with no hydronephrosis or suspicious renal mass. No pyelonephritis o r acute parenchymal process. No bladder abnormalities. Left adrenal nodularity is similar to the Ilir h 8 study but has increased from 2019. This can be monitored on evaluated once the patient recovers f rom the current event. Uterus and ovaries show no suspicious findings for patient age. Stomach is dilated by retained fluid and a small amount of air. No gastric wall thickening. Duodenum is not dilated. A specific mass or obstructive process near the pylorus is not seen. Patient could pelayo ve some component of antritis or duodenitis. This portion of the stomach and duodenum are in proximit y to the abnormal colon. Gastro paresis would be the primary consideration. No dilated small bowel loops. The long segment circumferential wall thickening of the transverse colo n is present. This is slightly more nodular and irregular near the splenic flexure. There is adjacent stranding and edema. Multiple reactive lymph nodes are present in the right upper quadrant. No abnor mality of the cecum. The left-side transverse colon and remaining left side colon show no acute findi ngs. Free intraperitoneal fluid has increased since the prior examination. No free air or pneumatosis. Flu id retention in the subcutaneous fatty tissues has increased. No hernia defects confirmed. No suspicious bony findings. IMPRESSION: Long segment circumferential wall thickening involving the splenic flexure and right-delio e transverse colon. Adjacent lymphadenopathy, fluid in stranding are present. Acute colitis remains the most common etiology. Long segment colon malignancy certainly remains in co nsideration. Dilated stomach containing large amount of fluid. A specific obstructive process is not seen. Gastro paresis would be the primary consideration. Obstruction due to secondary antritis or duodenitis would be possible. Small amount of ascites has developed. There is fluid retention in the subcutaneous fatty tissues in the patient has bilateral trace pleural effusions. Left adrenal nodularity has developed since the 2019 study and can be monitored for further evaluated once the patient recovers from the current acute illness.
--- NOTE | 2021-01-24 13:46 | P.PN ---
Subjective Date of Service: 01/24/21 Primary Care Provider: Dr. Watkins Chief Complaint: Colitis Patient still complaining of abdominal pain. She is vomiting intermittently. She is not tolerating diet. WBC count has worsened. Physical Examination - Vital Signs Temperature: 97.8 F Blood Pressure: 151/86 Pulse: 96 Respirations: 20 Pulse Ox (%): 95 - Physical Exam General: Moderate distress (Due to pain) HEENT: Mucous membr. moist/pink Respiratory: Clear to auscultation bilaterally, Normal air movement Cardiovascular: No edema, Regular rate/rhythm, Normal S1 S2 Gastrointestinal: Hypoactive, Non-distended, No rebound, Tenderness, Guarding (Upper abdomen) Musculoskeletal: No swelling, No tenderness Integumentary: No rashes, No erythema Neurological: Other (No focal motor deficit) Assessment And Plan - Current Problems (Diagnosis) (1) Colitis Current Visit: Yes Status: Acute (2) Acute renal failure superimposed on stage 3 chronic kidney disease Current Visit: No Status: Acute (3) Diabetes mellitus Onset Date: 08/05/15 Current Visit: No Status: Chronic Qualifiers: Diabetes mellitus type: type 2 Diabetes mellitus moth exterminator insulin use: without chcf use Diabetes mellitus complication status: with circulatory complication Diabetes mellitus complication detail: with peripheral angiopathy without gangrene Qualified Code(s): E11.51 - Type 2 diabetes mellitus with diabetic peripheral angiopathy without gangrene (4) Hypertension Onset Date: 03/17/16 Current Visit: No Status: Chronic Qualifiers: Hypertension type: essential hypertension Qualified Code(s): I10 - Essential (primary) hypertension (5) Hypoglycemia Current Visit: Yes Status: Acute - Plan Differential diagnosis for colitis will include infectious colitis versus inflammatory. Continue IV Zosyn. General surgery to follow. Repeat CT abdomen/pelvis. Check lactic acid. She has cholecystectomy, no biliary duct stone or significant biliary dilatation. Keep NPO today. No GI available. Continue D5 normal saline with with some potassium replacement. Monitor renal function. Insulin sliding scale for glucose management. Monitor blood glucose. Hypoglycemia protocol.
[2021-01-24] MEDS: ONDANSETRON 4 MG/2 ML VIAL IV PRN ×2 (14:38→19:53)
[2021-01-24] MEDS ORDERED: BISACODYL 10 MG RECTAL SUPP PR ONE ×2 (17:50→18:00)
[2021-01-24] MEDS ORDERED: FLEET ENEMA ADULT PR ONE (19:07)
[2021-01-24] MEDS: HYDROMORPHONE HCL 1 MG/ML INJ IV PRN (21:10)
[2021-01-25] MEDS ORDERED: Meropenem 500 MG VIAL IV SCH (01:00)
[2021-01-25] MEDS ORDERED: Meropenem 500 MG/100 ML BAG IV SCH (01:00)
[2021-01-25] MEDS: METHYLPREDNISOLONE 40 MG INJ IV SCH ×4 (01:27→17:13)
[2021-01-25] MEDS: D5 0.45 NS 1,000 ML IV SCH ×3 (01:30→19:00)
[2021-01-25] MEDS: HYDROMORPHONE HCL 1 MG/ML INJ IV PRN ×5 (01:36→21:26)
[2021-01-25] MEDS: MEROPENEM IV SCH ×3 (01:40→21:29)
[2021-01-25] MEDS: METRONIDAZOLE 500mg IVPB 500 MG/100 ML BAG IV SCH ×2 (01:40→10:01)
[2021-01-25] MEDS: NA CHLORIDE IV SCH ×3 (01:40→21:29)
[2021-01-25 06:45] LABS: Absolute Lymphocytes (CBC) 0.4 K/uL (0.7-4.9); Basophils % 0.1 % (0-1.3); Hematocrit 32.3 % (36.0-45.0); Lymphocytes % 1.5 % (15.3-44.8); MPV 7.5 fL (7.6-11.3); RBC Red Blood Cell Count 3.54 M/uL (3.86-4.86)
[2021-01-25 07:38] LABS: Albumin 2.2 g/dL (3.4-5.0); Bilirubin Direct 0.2 mg/dL (0-0.2); Bilirubin Total 0.4 mg/dL (0.2-1.0); Potassium 3.9 mmol/L (3.5-5.1); Protein, Total 5.7 g/dL (6.4-8.2)
[2021-01-25] MEDS: LACTOBACILLUS/ACIDOPHILUS TAB PO SCH ×3 (08:48→21:27)
[2021-01-25] MEDS: CALCITROL 0.25 MCG CAP PO SCH (08:48)
[2021-01-25] MEDS: HEPARIN 5000 UNIT/ML 1 ML VIAL SQ SCH ×2 (08:48→21:27)
[2021-01-25] MEDS: VITAMIN D 5,000 UNIT CAP PO SCH (08:48)
[2021-01-25] MEDS: PANTOPRAZOLE 40 MG INJ IVP SCH (08:49)
[2021-01-25] MEDS: INSULIN -REGULAR HUMAN 50 UNIT/0.5 ML ML SQ SCH ×4 (08:49→21:00)
[2021-01-25] MEDS: ENSURE CLEAR 200 ML CAN PO SCH ×2 (08:56→21:00)
[2021-01-25 10:07] LABS: Blood Morphology Comment NOT SEEN (NOT SEEN); Platelet Estimate ADEQ
[2021-01-25] MEDS: METOCLOPRAMIDE 10 MG/2mL INJ IV SCH ×2 (11:28→16:30)
--- NOTE | 2021-01-25 12:25 | P.PN ---
Subjective Date of Service: 01/25/21 Primary Care Provider: Dr. Watkins Chief Complaint: Colitis Subjective: No new changes (still with nausea/vomiting, abdominal pain - mostly in RUQ. febrile overnight to 100.8) Review of Systems 10-point ROS is otherwise unremarkable Physical Examination - Vital Signs Temperature: 97 F Blood Pressure: 128/69 Pulse: 97 Respirations: 20 Pulse Ox (%): 92 Assessment & Plan Physician Review Additional Text: Physical Exam General: Moderate distress (Due to pain) HEENT: dry mucous membranes Respiratory: Clear to auscultation bilaterally, Normal air movement Cardiovascular: No edema, Regular rate/rhythm, Normal S1 S2 Gastrointestinal: Hypoactive, soft, non-distended, TTP throughout abdomen, most severe in RUQ Musculoskeletal: No swelling, No tenderness Integumentary: No rashes, No erythema Problem List: acute transverse Colitis Acute renal failure superimposed on stage 3 chronic kidney disease Diabetes mellitus, type 2; non-insulin dependent Hypertension transverse colitis - infectious vs inflammatory - had leukocytosis, lactic acidosis and mild elevation in procal on admission Abx broadened to merrem General surgery consulted- no surgical intervention at this time, no GI available Repeat CT abdomen/pelvis on 01/24 - transverse colitis more involved, distended stomach, however duodenum is non-distended pantoprazole daily She is s/p cholecystectomy, no biliary duct stone or significant biliary dilatation. Continue D5 normal saline with with some potassium replacement. Monitor renal function. Insulin sliding scale for glucose management. Monitor blood glucose. continues with pain and nausea/vomiting; will review EMR - may need to start TPN soon if patient hasn't tolerated PO since admission lipase today WNL leukocytosis increasing, however on steroids will consult ID for further input Code: full dispo: anticipate hospitalization > 2 days if no improvement over next ~24 hrs, will consider transfer to tertiary care center Time Spent Managing Pts Care (In Minutes): 35
--- NOTE | 2021-01-25 13:38 | P.CNS ---
Date of Consult: 01/25/21 Reason for Consult: Leukocytosis Primary Care Provider: Dr. Watkins Chief Complaint: Colitis History of Present Illness: The patient is a 70-year-old female with a past medical history of diabetes type 2, hypertension, blindness, CKD, appendectomy, right great toe amputation who presented to the ER abdominal pain nausea and vomiting. Patient states that for past 2-3 weeks she has had difficulty keeping solid food down a nd then only taking clear liquids with abdominal pain still present. ED workup revealed a white blood cell count of 16 and hemoglobin of 10.7, creatinine of 3.06 G[address] showed transverse colitis. Patient reports that her last bowel movement was approximately 1 week ago. The repeat abdominal CT shows the a dilated stomach containing large amounts of fluid suspicious of gastroparesis. Also shows transverse colitis still present with acute colitis remaining the most common etiology. Also showed bibasilar atelectasis. Infectious disease has been consulted as the patient continues to have leukocytosis despite being on IV broad-spectrum antibiotics. Patient was initially placed on Rocephin and Flagyl then changed to cefepime and Flagyl and is now only on meropenem. Patient was also recently started on prednisone. Patient denies shortness breath or dyspnea, or chest pain. Patient complains of significant abdominal pain as well as nausea. Allergies No Known Allergies Allergy (Verified 09/04/17 17:39) Home Medications: Bumetanide [Bumex*] 1 mg PO DAILY 07/25/19 Sitagliptin Phosphate [Januvia*] 50 mg PO DAILY 07/25/19 Bumetanide [Bumex] 1 mg PO DAILY 01/17/21 Docusate [Colace Cap*] 100 mg PO DAILY 01/17/21 Escitalopram Oxalate [Lexapro] 5 mg PO DAILY 01/17/21 Ondansetron [Zofran (Odt)*] 4 mg PO PRN PRN 01/17/21 Pioglitazone HCl 30 mg PO DAILY 01/17/21 - Past Medical/Surgical History Diabetic: Yes -: Diabetes mellitus type 2 -: HTN- CONTROLLED -: Blindness -: JESSE -: APPENDECTOMY -: Right great toe amputation Psychosocial/ Personal History: Patient is retired, lives at home with her and daughters - Family History Father Medical History: Hypertension, Diabetes Mother Medical History: Heart disease, Diabetes - Social History Smoking Status: Unknown if ever smoked Alcohol use: No CD- Drugs: No Caffeine use: Yes Place of Residence: Home Review of Systems 10-point ROS is otherwise unremarkable Physical Examination Temp Pulse Resp BP Pulse Ox 97 F 97 H 20 128/69 92 01/25/21 12:28 01/25/21 12:28 01/25/21 12:28 01/25/21 12:28 01/25/21 12:28 General: Alert, Oriented x3, Acute distress HEENT: Atraumatic, Normocephalic, PERRLA Neck: Supple, 2+ carotid pulse no bruit Respiratory: Clear to auscultation bilaterally, Normal air movement Cardiovascular: Regular rate/rhythm, Normal S1 S2 Capillary refill: <2 Seconds Gastrointestinal: Hypoactive, Distended, Tenderness Musculoskeletal: Other (trace edema to bilateral LE) Integumentary: No rashes, No breakdown, No significant lesion External genitalia: Deferred Acetaminophen (Acetaminophen 500 Mg Tab) 500 mg PO Q4HP PRN PRN Reason: TEMP > 100' F Last Admin: 01/22/21 22:26 Dose: 500 mg Documented by: Calcitriol (Calcitrol 0.25 Mcg Cap) 0.5 mcg PO DAILY [facility] Last Admin: 01/25/21 08:48 Dose: 0.5 mcg Documented by: Cholecalciferol (Vitamin D 5,000 Unit Cap) 5,000 unit PO DAILY [facility] Last Admin: 01/25/21 08:48 Dose: 5,000 unit Documented by: Dextrose (D50w 25 Gm/50 Ml Vial) 12.5 gm IV PRN PRN; Protocol PRN Reason: HYPOGLYCEMIA Last Admin: 01/20/21 07:48 Dose: 12.5 gm Documented by: Dextrose (D50w 25 Gm/50 Ml Syringe) 12.5 gm IV PRN PRN; Protocol PRN Reason: HYPOGLYCEMIA Enteral Nutritional Formula (Ensure Clear 200 Ml Can) 237 ml PO BID [facility] Last Admin: 01/25/21 08:56 Dose: 237 ml Documented by: Glucagon (Glucagon 1 Mg/Vial) 1 mg IM 1X PRN; Protocol PRN Reason: HYPOGLYCEMIA Heparin Sodium (Porcine) (Heparin 5000 Unit/Ml 1 Ml Vial) 5,000 unit SQ Q12HR [facility] Last Admin: 01/25/21 08:48 Dose: 5,000 unit Documented by: Hydralazine HCl (Hydralazine Hcl 20 Mg/Ml Vial) 10 mg IV Q6HP PRN PRN Reason: Titrate to SBP (MUST DEFINE) Last Admin: 01/23/21 19:12 Dose: 10 mg Documented by: Hydromorphone HCl (Hydromorphone Hcl 1 Mg/Ml Inj) 1 mg IV Q4H PRN PRN Reason: Pain scale 8-10 (Severe) Last Admin: 01/25/21 10:22 Dose: 1 mg Documented by: Dextrose/Sodium Chloride (Dextrose 5% O.45% Saline) 1,000 mls @ 100 mls/hr IV .Q10H [facility] Last Admin: 01/25/21 11:33 Dose: 1,000 mls Documented by: Meropenem 500 mg/ Sodium (Chloride) 500 mg in 100 mls @ 200 mls/hr IV Q12HR [facility] Insulin Human Regular (Insulin -Regular Human 50 Unit/0.5 Ml Ml) 0 unit SQ ACHS [facility]; Protocol Last Admin: 01/25/21 11:27 Dose: 4 unit Documented by: Lactobacillus Acidoph/Bulgaricus (Lactobacillus/Acidophilus Tab) 1 tab PO TID [facility] Last Admin: 01/25/21 08:48 Dose: 1 tab Documented by: Methylprednisolone Sodium Succinate (Methylprednisolone 40 Mg Inj) 40 mg IV Q6HR [facility] Last Admin: 01/25/21 11:28 Dose: 40 mg Documented by: Metoclopramide HCl (Metoclopramide 10 Mg/2ml Inj) 10 mg IV AC [facility] Last Admin: 01/25/21 11:28 Dose: 10 mg Documented by: Ondansetron HCl (Ondansetron 4 Mg/2 Ml Vial) 4 mg IV Q6HP PRN PRN Reason: NAUSEA / VOMITING Last Admin: 01/24/21 19:53 Dose: 4 mg Documented by: Pantoprazole Sodium (Pantoprazole 40 Mg Inj) 40 mg IVP DAILY [facility]; Protocol Last Admin: 01/25/21 08:49 Dose: 40 mg Documented by: Sodium Chloride (Flush Normal Saline 10 Ml) 10 ml IV BID [facility] Last Admin: 01/25/21 08:49 Dose: 10 ml Documented by: Sodium Chloride (Sodium Chloride 0.9% 10ml Inj) 10 ml IV UD PRN PRN Reason: Diluant Conclusions/Impression: Assessment: -leukocytosis -transverse colitis -diabetes type 2 -anemia Plan: -continue IV meropenem. Leukocytosis likely attributed to addition of steroid and large bowel inflammation. Recommend patient to be NPO at this time. Repeat CBC has been ordered. All patient remains afebrile this time with normal vital signs. -Chente measure per primary team -continue monitor CBC and BMP next sentence containing 100% infection Plan of care discussed with Thank you for consultation
[2021-01-25] MEDS: ONDANSETRON 4 MG/2 ML VIAL IV PRN (21:26)
--- NOTE | 2021-01-25 23:32 | P.PN ---
Date of Service: 01/24/21 Vital Signs Temp Pulse Resp BP Pulse Ox 97.8 F 96 H 96 H 143/77 H 94 01/25/21 20:00 01/25/21 20:00 01/25/21 21:26 01/25/21 20:00 01/25/21 21:26 Medications Acetaminophen (Acetaminophen 500 Mg Tab) 500 mg PO Q4HP PRN PRN Reason: TEMP > 100' F Last Admin: 01/22/21 22:26 Dose: 500 mg Documented by: Calcitriol (Calcitrol 0.25 Mcg Cap) 0.5 mcg PO DAILY [facility] Last Admin: 01/25/21 08:48 Dose: 0.5 mcg Documented by: Cholecalciferol (Vitamin D 5,000 Unit Cap) 5,000 unit PO DAILY [facility] Last Admin: 01/25/21 08:48 Dose: 5,000 unit Documented by: Dextrose (D50w 25 Gm/50 Ml Vial) 12.5 gm IV PRN PRN; Protocol PRN Reason: HYPOGLYCEMIA Last Admin: 01/20/21 07:48 Dose: 12.5 gm Documented by: Dextrose (D50w 25 Gm/50 Ml Syringe) 12.5 gm IV PRN PRN; Protocol PRN Reason: HYPOGLYCEMIA Enteral Nutritional Formula (Ensure Clear 200 Ml Can) 237 ml PO BID [facility] Last Admin: 01/25/21 21:00 Dose: Not Given Documented by: Glucagon (Glucagon 1 Mg/Vial) 1 mg IM 1X PRN; Protocol PRN Reason: HYPOGLYCEMIA Heparin Sodium (Porcine) (Heparin 5000 Unit/Ml 1 Ml Vial) 5,000 unit SQ Q12HR [facility] Last Admin: 01/25/21 21:27 Dose: 5,000 unit Documented by: Hydralazine HCl (Hydralazine Hcl 20 Mg/Ml Vial) 10 mg IV Q6HP PRN PRN Reason: Titrate to SBP (MUST DEFINE) Last Admin: 01/23/21 19:12 Dose: 10 mg Documented by: Hydromorphone HCl (Hydromorphone Hcl 1 Mg/Ml Inj) 1 mg IV Q4H PRN PRN Reason: Pain scale 8-10 (Severe) Last Admin: 01/25/21 21:26 Dose: 1 mg Documented by: Dextrose/Sodium Chloride (Dextrose 5% O.45% Saline) 1,000 mls @ 100 mls/hr IV .Q10H [facility] Last Admin: 01/25/21 11:33 Dose: 1,000 mls Documented by: Meropenem 500 mg/ Sodium (Chloride) 500 mg in 100 mls @ 200 mls/hr IV Q12HR [facility] Last Admin: 01/25/21 21:29 Dose: 100 mls Documented by: Insulin Human Regular (Insulin -Regular Human 50 Unit/0.5 Ml Ml) 0 unit SQ Q6HR [facility]; Protocol Lactobacillus Acidoph/Bulgaricus (Lactobacillus/Acidophilus Tab) 1 tab PO TID [facility] Last Admin: 01/25/21 21:27 Dose: 1 tab Documented by: Methylprednisolone Sodium Succinate (Methylprednisolone 40 Mg Inj) 40 mg IV Q6HR [facility] Last Admin: 01/25/21 17:13 Dose: 40 mg Documented by: Metoclopramide HCl (Metoclopramide 10 Mg/2ml Inj) 10 mg IV AC [facility] Last Admin: 01/25/21 16:30 Dose: 10 mg Documented by: Ondansetron HCl (Ondansetron 4 Mg/2 Ml Vial) 4 mg IV Q6HP PRN PRN Reason: NAUSEA / VOMITING Last Admin: 01/25/21 21:26 Dose: 4 mg Documented by: Pantoprazole Sodium (Pantoprazole 40 Mg Inj) 40 mg IVP DAILY [facility]; Protocol Last Admin: 01/25/21 08:49 Dose: 40 mg Documented by: Sodium Chloride (Flush Normal Saline 10 Ml) 10 ml IV BID [facility] Last Admin: 01/25/21 21:00 Dose: 10 ml Documented by: Sodium Chloride (Sodium Chloride 0.9% 10ml Inj) 10 ml IV UD PRN PRN Reason: Diluant Assessment/ Plan: Nephrology No acute cardiac or pulmonary complaints. No CP or SOB. Persistent, waxing and waning N/V No acute events overnight. Vitals, medications, blood work and imaging reviewed in the chart. General: Oriented x3, Cooperative HEENT: Atraumatic Neck: Supple Respiratory: Diminished Cardiovascular: Regular rate/rhythm, Edema Gastrointestinal: Tender Musculoskeletal: No clubbing, No contractures Integumentary: No rashes, No cyanosis Neurological: Normal speech Laboratory Data (last 24 hrs) 01/16/21 23:20: WBC 16.20 H D, Hgb 10.7 L, Hct 33.5 L, Plt Count 306 01/16/21 23:20: Sodium 140, Potassium 3.9, BUN 60 H, Creatinine 3.06 H, Glucose 116 H, Total Bilirubin 0.5, AST 32, ALT 20, Alkaline Phosphatase 116, Lipase 69 L 01/16/21 23:06: WBC Cancelled, Hgb Cancelled, Hct Cancelled, Plt Count Cancelled 01/16/21 23:06: Sodium Cancelled, Potassium Cancelled, BUN Cancelled, Creatinine Cancelled, Glucose Cancelled, Total Bilirubin Cancelled, AST Cancelled, ALT Cancelled, Alkaline Phosphatase Cancelled, Lipase Cancelled Imagings Data: EXAM DESCRIPTION: CT - Abdomen Pelvis Wo Contrast - 01/17/2021 5:05 am Head Brain Wo Cont CLINICAL HISTORY: 1 years Female TRAUMA COMPARISON: None. TECHNIQUE: Contiguous axial CT images obtained through the brain without IV contrast. This exam was performed according to our department optimization program which includes automated exposure control, adjustment of the mA and/or kv according to patient size and/or use of iterative reconstruction technique. FINDINGS: The ventricles and sulci appear unremarkable. No abnormal areas of decreased density are identified. No mass lesions. No acute hemorrhage. No fluid or significant mucosal thickening in the visualized paranasal sinuses. No depressed calvarial fractures. IMPRESSION: No acute intracranial abnormality is identified. Conclusions/Impression: CKD IV -No NSAIDs -Continue IVF D5 1/2NS Hypokalemia -Replete IV potassium today Hypocalcemia -Continue Calcitriol HTN with CKD DM II with CKD -RISS Severe malnutrition -Advance nutrition as tolerated Anemia in chronic illness -Monitor H&H -Retacrit PRN Transverse colitis -Continue meropenem -Advance diet as tolerated -Continue probiotic -Continue steroids -Continue Reglan IV for possible DM gastroparesis
--- NOTE | 2021-01-25 23:36 | P.PN ---
Date of Service: 01/25/21 Vital Signs Temp Pulse Resp BP Pulse Ox 97.8 F 96 H 96 H 143/77 H 94 01/25/21 20:00 01/25/21 20:00 01/25/21 21:26 01/25/21 20:00 01/25/21 21:26 Medications Acetaminophen (Acetaminophen 500 Mg Tab) 500 mg PO Q4HP PRN PRN Reason: TEMP > 100' F Last Admin: 01/22/21 22:26 Dose: 500 mg Documented by: Calcitriol (Calcitrol 0.25 Mcg Cap) 0.5 mcg PO DAILY [facility] Last Admin: 01/25/21 08:48 Dose: 0.5 mcg Documented by: Cholecalciferol (Vitamin D 5,000 Unit Cap) 5,000 unit PO DAILY [facility] Last Admin: 01/25/21 08:48 Dose: 5,000 unit Documented by: Dextrose (D50w 25 Gm/50 Ml Vial) 12.5 gm IV PRN PRN; Protocol PRN Reason: HYPOGLYCEMIA Last Admin: 01/20/21 07:48 Dose: 12.5 gm Documented by: Dextrose (D50w 25 Gm/50 Ml Syringe) 12.5 gm IV PRN PRN; Protocol PRN Reason: HYPOGLYCEMIA Enteral Nutritional Formula (Ensure Clear 200 Ml Can) 237 ml PO BID [facility] Last Admin: 01/25/21 21:00 Dose: Not Given Documented by: Glucagon (Glucagon 1 Mg/Vial) 1 mg IM 1X PRN; Protocol PRN Reason: HYPOGLYCEMIA Heparin Sodium (Porcine) (Heparin 5000 Unit/Ml 1 Ml Vial) 5,000 unit SQ Q12HR [facility] Last Admin: 01/25/21 21:27 Dose: 5,000 unit Documented by: Hydralazine HCl (Hydralazine Hcl 20 Mg/Ml Vial) 10 mg IV Q6HP PRN PRN Reason: Titrate to SBP (MUST DEFINE) Last Admin: 01/23/21 19:12 Dose: 10 mg Documented by: Hydromorphone HCl (Hydromorphone Hcl 1 Mg/Ml Inj) 1 mg IV Q4H PRN PRN Reason: Pain scale 8-10 (Severe) Last Admin: 01/25/21 21:26 Dose: 1 mg Documented by: Dextrose/Sodium Chloride (Dextrose 5% O.45% Saline) 1,000 mls @ 100 mls/hr IV .Q10H [facility] Last Admin: 01/25/21 11:33 Dose: 1,000 mls Documented by: Meropenem 500 mg/ Sodium (Chloride) 500 mg in 100 mls @ 200 mls/hr IV Q12HR [facility] Last Admin: 01/25/21 21:29 Dose: 100 mls Documented by: Insulin Human Regular (Insulin -Regular Human 50 Unit/0.5 Ml Ml) 0 unit SQ Q6HR [facility]; Protocol Lactobacillus Acidoph/Bulgaricus (Lactobacillus/Acidophilus Tab) 1 tab PO TID [facility] Last Admin: 01/25/21 21:27 Dose: 1 tab Documented by: Methylprednisolone Sodium Succinate (Methylprednisolone 40 Mg Inj) 40 mg IV Q6HR [facility] Last Admin: 01/25/21 17:13 Dose: 40 mg Documented by: Metoclopramide HCl (Metoclopramide 10 Mg/2ml Inj) 10 mg IV AC [facility] Last Admin: 01/25/21 16:30 Dose: 10 mg Documented by: Ondansetron HCl (Ondansetron 4 Mg/2 Ml Vial) 4 mg IV Q6HP PRN PRN Reason: NAUSEA / VOMITING Last Admin: 01/25/21 21:26 Dose: 4 mg Documented by: Pantoprazole Sodium (Pantoprazole 40 Mg Inj) 40 mg IVP DAILY [facility]; Protocol Last Admin: 01/25/21 08:49 Dose: 40 mg Documented by: Sodium Chloride (Flush Normal Saline 10 Ml) 10 ml IV BID [facility] Last Admin: 01/25/21 21:00 Dose: 10 ml Documented by: Sodium Chloride (Sodium Chloride 0.9% 10ml Inj) 10 ml IV UD PRN PRN Reason: Diluant Assessment/ Plan: Nephrology No acute cardiac or pulmonary complaints. No CP or SOB. Persistent, waxing and waning N/V No acute events overnight. Vitals, medications, blood work and imaging reviewed in the chart. General: Oriented x3, Cooperative HEENT: Atraumatic Neck: Supple Respiratory: Diminished Cardiovascular: Regular rate/rhythm, Edema Gastrointestinal: Tender Musculoskeletal: No clubbing, No contractures Integumentary: No rashes, No cyanosis Neurological: Normal speech Laboratory Data (last 24 hrs) 01/16/21 23:20: WBC 16.20 H D, Hgb 10.7 L, Hct 33.5 L, Plt Count 306 01/16/21 23:20: Sodium 140, Potassium 3.9, BUN 60 H, Creatinine 3.06 H, Glucose 116 H, Total Bilirubin 0.5, AST 32, ALT 20, Alkaline Phosphatase 116, Lipase 69 L 01/16/21 23:06: WBC Cancelled, Hgb Cancelled, Hct Cancelled, Plt Count Cancelled 01/16/21 23:06: Sodium Cancelled, Potassium Cancelled, BUN Cancelled, Creatinine Cancelled, Glucose Cancelled, Total Bilirubin Cancelled, AST Cancelled, ALT Cancelled, Alkaline Phosphatase Cancelled, Lipase Imagings Data: EXAM DESCRIPTION: CT - Abdomen Pelvis Wo Contrast - 01/17/2021 5:05 am Head Brain Wo Cont CLINICAL HISTORY: 1 years Female TRAUMA COMPARISON: None. TECHNIQUE: Contiguous axial CT images obtained through the brain without IV contrast. This exam was performed according to our department optimization program which includes automated exposure control, adjustment of the mA and/or kv according to patient size and/or use of iterative reconstruction technique. FINDINGS: The ventricles and sulci appear unremarkable. No abnormal areas of decreased density are identified. No mass lesions. No acute hemorrhage. No fluid or significant mucosal thickening in the visualized paranasal sinuses. No depressed calvarial fractures. IMPRESSION: No acute intracranial abnormality is identified. Conclusions/Impression: CKD IV -No NSAIDs -Continue IVF D5 1/2NS Hypokalemia -Replete IV potassium prn Hypocalcemia -Continue Calcitriol HTN with CKD DM II with CKD -RISS Severe malnutrition -Advance nutrition as tolerated Anemia in chronic illness -Monitor H&H -Retacrit PRN Transverse colitis -Continue meropenem -Advance diet as tolerated -Continue probiotic -Continue steroids -Continue Reglan IV for possible DM gastroparesis
[2021-01-26] MEDS: D5 0.45 NS 1,000 ML IV SCH ×4 (00:21→14:37)
[2021-01-26] MEDS: METHYLPREDNISOLONE 40 MG INJ IV SCH ×4 (00:21→20:41)
--- NOTE | 2021-01-26 04:36 | EKG ---
Test Date: 2021-01-24 Test Time: 17:24:46 Lab Animal Technologist: GENARO MEASUREMENT RESULTS: Intervals: Rate: 93 AK: 154 QRSD: 64 QT: 358 QTc: 445 [place]: P: 39 AK: 154 QRS: -26 T: 22 INTERPRETIVE STATEMENTS: Sinus rhythm with fusion complexes Inferior infarct, age undetermined Anterior infarct, age undetermined Abnormal ECG Compared to ECG 01/17/2021 00:06:01 Fusion complex(es) now present Myocardial infarct finding now present Left ventricular hypertrophy no longer present Early repolarization no longer present Electronically Signed On 01-26-21 04:32:35 CDT by Horace Walker
[2021-01-26 04:37] LABS: Absolute Lymphocytes (CBC) 0.5 K/uL (0.7-4.9); Hematocrit 29.6 % (36.0-45.0); Lymphocytes % 2.3 % (15.3-44.8); MPV 7.7 fL (7.6-11.3); RBC Red Blood Cell Count 3.29 M/uL (3.86-4.86)
[2021-01-26 05:04] LABS: Bilirubin Total 0.3 mg/dL (0.2-1.0); C-Reactive Protein 37.8 mg/L (<3.00); Magnesium 2.2 mg/dL (1.8-2.4); Potassium 3.3 mmol/L (3.5-5.1); Protein, Total 5.3 g/dL (6.4-8.2); Uric Acid 8.7 mg/dL (2.6-6.0)
[2021-01-26] MEDS: ONDANSETRON 4 MG/2 ML VIAL IV PRN (05:09)
[2021-01-26] MEDS: HYDROMORPHONE HCL 1 MG/ML INJ IV PRN ×4 (05:09→20:39)
[2021-01-26] MEDS: INSULIN -REGULAR HUMAN 50 UNIT/0.5 ML ML SQ SCH ×4 (05:48→18:38)
[2021-01-26] MEDS ORDERED: POTASSIUM CL 40 MEQ in NA CHLORIDE 0.9% 500 ML IV SCH (07:30)
[2021-01-26] MEDS: MEROPENEM IV SCH ×2 (08:32→20:40)
[2021-01-26] MEDS: LACTOBACILLUS/ACIDOPHILUS TAB PO SCH ×4 (08:32→20:41)
[2021-01-26] MEDS: HEPARIN 5000 UNIT/ML 1 ML VIAL SQ SCH ×2 (08:32→20:40)
[2021-01-26] MEDS: VITAMIN D 5,000 UNIT CAP PO SCH ×3 (08:32→14:37)
[2021-01-26] MEDS: CALCITROL 0.25 MCG CAP PO SCH ×3 (08:32→09:00)
[2021-01-26] MEDS: NA CHLORIDE IV SCH ×2 (08:32→20:40)
[2021-01-26] MEDS: PANTOPRAZOLE 40 MG INJ IVP SCH (08:32)
[2021-01-26] MEDS: METOCLOPRAMIDE 10 MG/2mL INJ IV SCH ×3 (08:33→16:12)
[2021-01-26] MEDS: ENSURE CLEAR 200 ML CAN PO SCH ×2 (08:44→21:00)
[2021-01-26] MEDS ORDERED: DEXTROSE 10%-WATER 500 ML IV SCH (10:00)
[2021-01-26 10:44] LABS: Phosphorus 3.4 mg/dL (2.5-4.9)
--- NOTE | 2021-01-26 12:23 | PN ---
Subjective: The patient is with the family. Denies any headache, chest pain, abdominal pain. The p atient is also having some constipation and has been having some nausea and vomiting. According to t andre staff, the patient had 3 bowel movements in the last 24 hours. No blood in the vomitus or diarrhe a and bowel movements. Objective: Vital Signs: Temperature 97.1, pulse 93, respirations 18, blood pressure 145/64. Lungs: Basal crackles. Heart: S1, S2. Regular. Abdomen: Bowel sounds decreased. Extremity: Trace edema. Laboratory Data: Shows WBC 23,000, hemoglobin 9.7, platelets are 197. Chemistry shows sodium 139, p otassium 3.3, chloride 109, bicarb 19, BUN 47, creatinine 2.7, glucose is 291. Albumin level is 2. Procalcitonin is 0.87. Micro data; blood cultures, no growth in [address] and pelvis don e on 01/24 shows the patient has long segmental circumferential wall thickening involving the splenic flexure and right-sided traverse colon adjacent lymphadenopathy. Fluid is starting spreading. Stra nding are present. Assessment And Plan: A 70-year-old female with colitis of the splenic flexure and lymphadenopathy co ncern regarding possible tumor involvement in this case and postobstructive infection. The patient h as not seen any gastroenterologists for many years for colonoscopy or endoscopy. The patient with le ukocytosis. For moderate protein-calorie malnourishment, we will recommend to start TPN and PICC josiah e. Continue antibiotic regimen. At this time, the patient is currently on meropenem. According to staff, she looks slightly better. We will continue supportive care and also possible transfer to [facility] for further management of infection and possible colonoscopy. Diabetes mellitus and anemia, sta ble. Continue supportive care. NF/MODL Voice ID: [id number] Report ID: [id number]
[2021-01-26] MEDS ORDERED: VANCOMYCIN 1.5 GM in NA CHLORIDE 0.9% 500 ML IVPB ONE (12:30)
[2021-01-26] MEDS ORDERED: VANCOMYCIN 1 GM/VIAL IVPB ONE (13:00)
[2021-01-26] MEDS ORDERED: BISACODYL 10 MG RECTAL SUPP PR ONE (13:44)
--- NOTE | 2021-01-26 13:45 | P.PN ---
Subjective Date of Service: 01/26/21 Primary Care Provider: Dr. Watkins Chief Complaint: Colitis Subjective: Improving (feels better this morning, pain improved, still with some nausea, threw up when tryin to take AM pills. feels bloated) Review of Systems 10-point ROS is otherwise unremarkable Physical Examination - Vital Signs Temperature: 97.3 F Blood Pressure: 135/85 Pulse: 89 Respirations: 18 Pulse Ox (%): 91 Assessment & Plan Physician Review Additional Text: Physical Exam General: NAD HEENT: dry mucous membranes Respiratory: Clear to auscultation bilaterally, Normal air movement Cardiovascular: No edema, Regular rate/rhythm, Normal S1 S2 Gastrointestinal: Hypoactive, mod distention, mild-mod TTP in RUQ, mild TTP in LUQ Musculoskeletal: No tenderness Integumentary: No rashes, No erythema Problem List: acute transverse Colitis Acute renal failure superimposed on stage 3 chronic kidney disease Diabetes mellitus, type 2; non-insulin dependent Hypertension transverse colitis - infectious vs inflammatory - had leukocytosis, lactic acidosis and mild elevation in procal on admission Abx broadened to merrem General surgery consulted- no surgical intervention at this time, no GI available She is s/p cholecystectomy, no biliary duct stone or significant biliary dilatation. Repeat CT abdomen/pelvis on 01/24 - transverse colitis more involved, distended s tomach, however duodenum is non-distended pantoprazole daily nephrology consulted for ABEL on CKID, on IVF, with acidosis Insulin sliding scale for glucose management. Monitor blood glucose. PICC ordered, photoengraving helper consulted for TPN - pt hasn't eaten much in nearly 9 days leukocytosis increasing, however on steroids ID consulted Code: full dispo: anticipate hospitalization > 2 days, consult SW/CM - for possible LTAC - per ID, may need prolonged antibiotics, PICC/ TPN, Time Spent Managing Pts Care (In Minutes): 35
[2021-01-26] MEDS ORDERED: D50W 25 GM/50 ML VIAL IV PRN (14:00)
[2021-01-26] MEDS: INSULIN 70/30 100 UNITS/ML SQ SCH (16:12)
[2021-01-26] MEDS ORDERED: AA 5%/D20W/ELECTROLYTES-TPN 2,000 ML, Lipids 20% 250 ML with MULTIVITAMINS INJ 10 ML IV SCH ×3 (18:00)
[2021-01-26] MEDS ORDERED: POTASSIUM CL SA 10 MEQ TAB PO ONE (20:18)
[2021-01-27] MEDS: INSULIN -REGULAR HUMAN 50 UNIT/0.5 ML ML SQ SCH ×4 (06:00→18:31)
[2021-01-27 06:35] LABS: ALT/SGPT 11 U/L (12-78); AST/SGOT 12 U/L (15-37); BUN Blood Urea Nitrogen 51 mg/dL (7-18); Bicarbonate 17 mmol/L (21-32); Bilirubin Total 0.4 mg/dL (0.2-1.0); Glucose Level 229 mg/dL (74-106); Magnesium 2.1 mg/dL (1.8-2.4); Potassium 3.8 mmol/L (3.5-5.1); Protein, Total 5.6 g/dL (6.4-8.2); Sodium Level 139 mmol/L (136-145)
[2021-01-27 06:43] LABS: Absolute Lymphocytes (CBC) 0.5 K/uL (0.7-4.9); Hematocrit 34.6 % (36.0-45.0); Lymphocytes % 2.3 % (15.3-44.8); MPV 8.4 fL (7.6-11.3); RBC Red Blood Cell Count 3.82 M/uL (3.86-4.86)
[2021-01-27] MEDS: D5 0.45 NS 1,000 ML IV SCH ×3 (06:45→22:46)
[2021-01-27] MEDS: PANTOPRAZOLE 40 MG INJ IVP SCH (09:00)
[2021-01-27] MEDS: CALCITROL 0.25 MCG CAP PO SCH (09:00)
[2021-01-27] MEDS: ENSURE CLEAR 200 ML CAN PO SCH ×2 (09:00→21:00)
[2021-01-27] MEDS: NA CHLORIDE IV SCH ×2 (10:26→22:46)
[2021-01-27] MEDS: MEROPENEM IV SCH ×2 (10:26→22:46)
[2021-01-27] MEDS: INSULIN 70/30 100 UNITS/ML SQ SCH ×3 (10:26→18:00)
[2021-01-27] MEDS: HEPARIN 5000 UNIT/ML 1 ML VIAL SQ SCH ×2 (10:27→22:46)
[2021-01-27] MEDS: METOCLOPRAMIDE 10 MG/2mL INJ IV SCH ×3 (10:27→18:31)
[2021-01-27] MEDS: VITAMIN D 5,000 UNIT CAP PO SCH (10:28)
[2021-01-27] MEDS: METHYLPREDNISOLONE 40 MG INJ IV SCH ×2 (10:28→22:46)
[2021-01-27] MEDS: LACTOBACILLUS/ACIDOPHILUS TAB PO SCH ×3 (10:28→22:46)
[2021-01-27] MEDS: HYDROMORPHONE HCL 1 MG/ML INJ IV PRN ×4 (10:38→22:54)
--- NOTE | 2021-01-27 11:13 | P.PN ---
Subjective Date of Service: 01/27/21 Primary Care Provider: Dr. Watkins Chief Complaint: Colitis patient seen and examined at bedside-seems to be worse today with significant abdominal pain. Procal is 0.91 today-up trending. Patient was given 1 dose 1.5 mg of vacnomycin yesterday. Continue merum. Review of Systems 10-point ROS is otherwise unremarkable Physical Examination - Vital Signs Temperature: 96.6 F Blood Pressure: 148/70 Pulse: 96 Respirations: 16 Pulse Ox (%): 95 Assessment And Plan - Plan Physical Exam: General: Alert, Oriented x3, Acute distress HEENT: Atraumatic, Normocephalic, PERRLA Neck: Supple, 2+ carotid pulse no bruit Respiratory: Clear to auscultation bilaterally, Normal air movement Cardiovascular: Regular rate/rhythm, Normal S1 S2 Capillary refill: <2 Seconds Gastrointestinal: Hypoactive, Distended, Tenderness to all 4 quadrants. Dull to percussion. Musculoskeletal: Other (trace edema to bilateral LE) Integumentary: No rashes, No breakdown, No significant lesion External genitalia: Deferred Antibioitc(s) meropenum start: 01/25 stop: 02/08 Indication: transverse colitis Conclusions/Impression: Assessment: -leukocytosis -transverse colitis -diabetes type 2 -anemia Plan: -continue IV meropenem. Leukocytosis likely attributed to addition of steroid and large bowel inflammation. Steroid being decreased. WBC continues to stay elevated. Procalcition: 0.91 on 01/27-patient was given a single dose of vanco on 01/26. Continue to monitor closely.She remains afebrile. -Chente measure per primary team -continue monitor CBC and BMP next sentence containing 100% infection Plan of care discussed with Thank you for consultation Physician Review Additional Text: Physical Exam General: NAD HEENT: dry mucous membranes Respiratory: Clear to auscultation bilaterally, Normal air movement Cardiovascular: No edema, Regular rate/rhythm, Normal S1 S2 Gastrointestinal: Hypoactive, mod distention, mild-mod TTP in RUQ, mild TTP in LUQ Musculoskeletal: No tenderness Integumentary: No rashes, No erythema Problem List: acute transverse Colitis Acute renal failure superimposed on stage 3 chronic kidney disease Diabetes mellitus, type 2; non-insulin dependent Hypertension transverse colitis - infectious vs inflammatory - had leukocytosis, lactic acidosis and mild elevation in procal on admission Abx broadened to merrem General surgery consulted- no surgical intervention at this time, no GI available She is s/p cholecystectomy, no biliary duct stone or significant biliary dilatation. Repeat CT abdomen/pelvis on 01/24 - transverse colitis more involved, distended stomach, however duodenum is non-distended pantoprazole daily nephrology consulted for ABEL on CKID, on IVF, with acidosis Insulin sliding scale for glucose management. Monitor blood glucose. PICC ordered, artist blacksmith consulted for TPN - pt hasn't eaten much in nearly 9 days leukocytosis increasing, however on steroids ID consulted Code: full dispo: anticipate hospitalization > 2 days, consult SW/CM - for possible LTAC - per ID, may need prolonged antibiotics, PICC/ TPN,
--- NOTE | 2021-01-27 14:46 | P.PN ---
Subjective Date of Service: 01/27/21 Primary Care Provider: Dr. Watkins Chief Complaint: Colitis Subjective: Improving (slight improvement, nausea improved, did have emesis overnight, pain improved, but still present. Intermittent, less often, mostly in upper abdomen. reports dry mouth, thirsty. BM last night) Review of Systems 10-point ROS is otherwise unremarkable Physical Examination - Vital Signs Temperature: 96.8 F Blood Pressure: 139/61 Pulse: 98 Respirations: 16 Pulse Ox (%): 97 Assessment & Plan Physician Review Additional Text: Physical Exam General: NAD HEENT: dry mucous membranes, normal conjunctiva, sclera anicteric Respiratory: Clear to auscultation bilaterally, diminished at bases bilaterally Cardiovascular: Regular rate/rhythm, Normal S1 S2, trace b/l lower extremity edema Gastrointestinal: Hypoactive, mod distention, mild-mod TTP in RUQ/epigastrium, mild TTP in LUQ Musculoskeletal: No tenderness Integumentary: No rashes, No erythema Problem List: acute transverse Colitis Acute renal failure superimposed on stage 3 chronic kidney disease Diabetes mellitus, type 2; non-insulin dependent Hypertension transverse colitis - infectious vs inflammatory - had leukocytosis, lactic acidosis and mild elevation in procal on admission continue NPO until pain resolved and no nausea Abx broadened to merrem - ID consulted and agreed, added 1x vancomycin on 01/26 General surgery consulted- no surgical intervention at this time, no GI available She is s/p cholecystectomy, no biliary duct stone or significant biliary dilatation. Repeat CT abdomen/pelvis on 01/24 - transverse colitis more involved, distended stomach, however duodenum is non-distended pantoprazole daily nephrology consulted for ABEL on CKID, on IVF, with acidosis Insulin sliding scale for glucose management. Monitor blood glucose. PICC ordered, lead web application developer consulted for TPN - pt hasn't eaten much in nearly 9-10 days leukocytosis partly due to steroids and colitis, procal remains elevated, CRP elevated will wean steroids Code: full dispo: anticipate hospitalization > 2 days spoke with eldest daughter - stats father does not want to pursue LTAC at this time, had bad prior experience with a different family member I think she would benefit from LTAC, for prolonged antibiotics, PICC/ TPN Time Spent Managing Pts Care (In Minutes): 35
--- NOTE | 2021-01-27 19:15 | RAD REPORT ---
EXAM DESCRIPTION: RAD - Chest Single View - 01/27/2021 7:06 pm CLINICAL HISTORY: PICC line placement COMPARISON: July 2019 FINDINGS: Portable chest was obtained following placement of a right upper extremity PICC line. The catheter tip is in the mid SVC.
--- NOTE | 2021-01-27 20:43 | P.PN ---
Date of Service: 01/26/21 Vital Signs Temp Pulse Resp BP Pulse Ox 97.4 F 89 16 127/67 97 01/27/21 20:00 01/27/21 20:00 01/27/21 20:00 01/27/21 20:00 01/27/21 20:00 Medications Acetaminophen (Acetaminophen 500 Mg Tab) 500 mg PO Q4HP PRN PRN Reason: TEMP > 100' F Last Admin: 01/22/21 22:26 Dose: 500 mg Documented by: Calcitriol (Calcitrol 0.25 Mcg Cap) 0.5 mcg PO DAILY [facility] Last Admin: 01/27/21 09:00 Dose: 0.5 mcg Documented by: Cholecalciferol (Vitamin D 5,000 Unit Cap) 5,000 unit PO DAILY [facility] Last Admin: 01/27/21 10:28 Dose: 5,000 unit Documented by: Dextrose (D50w 25 Gm/50 Ml Vial) 12.5 gm IV PRN PRN; Protocol PRN Reason: HYPOGLYCEMIA Enteral Nutritional Formula (Ensure Clear 200 Ml Can) 237 ml PO BID [facility] Last Admin: 01/27/21 09:00 Dose: Not Given Documented by: Glucagon (Glucagon 1 Mg/Vial) 1 mg IM 1X PRN; Protocol PRN Reason: HYPOGLYCEMIA Heparin Sodium (Porcine) (Heparin 5000 Unit/Ml 1 Ml Vial) 5,000 unit SQ Q12HR [facility] Last Admin: 01/27/21 10:27 Dose: 5,000 unit Documented by: Hydralazine HCl (Hydralazine Hcl 20 Mg/Ml Vial) 10 mg IV Q6HP PRN PRN Reason: Titrate to SBP (MUST DEFINE) Last Admin: 01/23/21 19:12 Dose: 10 mg Documented by: Hydromorphone HCl (Hydromorphone Hcl 1 Mg/Ml Inj) 1 mg IV Q4H PRN PRN Reason: Pain scale 8-10 (Severe) Last Admin: 01/27/21 18:37 Dose: 1 mg Documented by: Meropenem 500 mg/ Sodium (Chloride) 500 mg in 100 mls @ 200 mls/hr IV Q12HR [facility] Last Admin: 01/27/21 10:26 Dose: 100 mls Documented by: Dextrose/Sodium Chloride (Dextrose 5% O.45% Saline) 1,000 mls @ 50 mls/hr IV .Q20H [facility] Last Admin: 01/27/21 10:13 Dose: Not Given Documented by: Insulin Human Isoph/Insulin Regular (Insulin 70/30 100 Units/Ml) 10 unit SQ BID 6AM 6PM [facility] Last Admin: 01/27/21 18:00 Dose: Not Given Documented by: Insulin Human Regular (Insulin -Regular Human 50 Unit/0.5 Ml Ml) 0 unit SQ Q6HR [facility]; Protocol Last Admin: 01/27/21 18:31 Dose: 2 unit Documented by: Lactobacillus Acidoph/Bulgaricus (Lactobacillus/Acidophilus Tab) 1 tab PO TID [facility] Last Admin: 01/27/21 14:00 Dose: Not Given Documented by: Methylprednisolone Sodium Succinate (Methylprednisolone 40 Mg Inj) 40 mg IV BID [facility] Last Admin: 01/27/21 10:28 Dose: 40 mg Documented by: Metoclopramide HCl (Metoclopramide 10 Mg/2ml Inj) 10 mg IV AC [facility] Last Admin: 01/27/21 18:31 Dose: 10 mg Documented by: Ondansetron HCl (Ondansetron 4 Mg/2 Ml Vial) 4 mg IV Q6HP PRN PRN Reason: NAUSEA / VOMITING Last Admin: 01/26/21 05:09 Dose: 4 mg Documented by: Pantoprazole Sodium (Pantoprazole 40 Mg Inj) 40 mg IVP DAILY [facility]; Protocol Last Admin: 01/27/21 09:00 Dose: 40 mg Documented by: Sodium Chloride (Flush Normal Saline 10 Ml) 10 ml IV BID [facility] Last Admin: 01/27/21 09:00 Dose: Not Given Documented by: Sodium Chloride (Sodium Chloride 0.9% 10ml Inj) 10 ml IV UD PRN PRN Reason: Diluant Assessment/ Plan: Nephrology No acute cardiac or pulmonary complaints. No CP or SOB. Persistent, waxing and waning N/V No acute events overnight. Vitals, medications, blood work and imaging reviewed in the chart. General: Oriented x3, Cooperative HEENT: Atraumatic Neck: Supple Respiratory: Diminished Cardiovascular: Regular rate/rhythm, Edema Gastrointestinal: Tender Musculoskeletal: No clubbing, No contractures Integumentary: No rashes, No cyanosis Neurological: Normal speech Laboratory Data (last 24 hrs) 01/16/21 23:20: WBC 16.20 H D, Hgb 10.7 L, Hct 33.5 L, Plt Count 306 03/07/21 23:20: Sodium 140, Potassium 3.9, BUN 60 H, Creatinine 3.06 H, Glucose 116 H, Total Bilirubin 0.5, AST 32, ALT 20, Alkaline Phosphatase 116, Lipase 69 L 01/16/21 23:06: WBC Cancelled, Hgb Cancelled, Hct Cancelled, Plt Count Cancelled 01/16/21 23:06: Sodium Cancelled, Potassium Cancelled, BUN Cancelled, Creatinine Cancelled, Glucose Cancelled, Total Bilirubin Cancelled, AST Cancelled, ALT Cancelled, Alkaline Phosphatase Cancelled, Lipase Imagings Data: EXAM DESCRIPTION: CT - Abdomen Pelvis Wo Contrast - 01/17/2021 5:05 am Head Brain Wo Cont CLINICAL HISTORY: 1 years Female TRAUMA COMPARISON: None. TECHNIQUE: Contiguous axial CT images obtained through the brain without IV contrast. This exam was performed according to our department optimization program which includes automated exposure control, adjustment of the mA and/or kv according to patient size and/or use of iterative reconstruction technique. FINDINGS: The ventricles and sulci appear unremarkable. No abnormal areas of decreased density are identified. No mass lesions. No acute hemorrhage. No fluid or significant mucosal thickening in the visualized paranasal sinuses. No depressed calvarial fractures. IMPRESSION: No acute intracranial abnormality is identified. Conclusions/Impression: CKD IV -No NSAIDs -Continue IVF D5 1/2NS Hypokalemia -Replete IV potassium prn Hypocalcemia -Continue Calcitriol HTN with CKD DM II with CKD -RISS Severe malnutrition -Advance nutrition as tolerated Anemia in chronic illness -Monitor H&H -Retacrit PRN Transverse colitis -Continue meropenem -Advance diet as tolerated -Continue probiotic -Continue steroids -Continue Reglan IV for possible DM gastroparesis
--- NOTE | 2021-01-27 20:47 | P.PN ---
Date of Service: 01/27/21 Vital Signs Temp Pulse Resp BP Pulse Ox 97.4 F 89 16 127/67 97 01/27/21 20:00 01/27/21 20:00 01/27/21 20:00 01/27/21 20:00 01/27/21 20:00 Medications Acetaminophen (Acetaminophen 500 Mg Tab) 500 mg PO Q4HP PRN PRN Reason: TEMP > 100' F Last Admin: 01/22/21 22:26 Dose: 500 mg Documented by: Calcitriol (Calcitrol 0.25 Mcg Cap) 0.5 mcg PO DAILY [facility] Last Admin: 01/27/21 09:00 Dose: 0.5 mcg Documented by: Cholecalciferol (Vitamin D 5,000 Unit Cap) 5,000 unit PO DAILY [facility] Last Admin: 01/27/21 10:28 Dose: 5,000 unit Documented by: Dextrose (D50w 25 Gm/50 Ml Vial) 12.5 gm IV PRN PRN; Protocol PRN Reason: HYPOGLYCEMIA Enteral Nutritional Formula (Ensure Clear 200 Ml Can) 237 ml PO BID [facility] Last Admin: 01/27/21 09:00 Dose: Not Given Documented by: Glucagon (Glucagon 1 Mg/Vial) 1 mg IM 1X PRN; Protocol PRN Reason: HYPOGLYCEMIA Heparin Sodium (Porcine) (Heparin 5000 Unit/Ml 1 Ml Vial) 5,000 unit SQ Q12HR [facility] Last Admin: 01/27/21 10:27 Dose: 5,000 unit Documented by: Hydralazine HCl (Hydralazine Hcl 20 Mg/Ml Vial) 10 mg IV Q6HP PRN PRN Reason: Titrate to SBP (MUST DEFINE) Last Admin: 01/23/21 19:12 Dose: 10 mg Documented by: Hydromorphone HCl (Hydromorphone Hcl 1 Mg/Ml Inj) 1 mg IV Q4H PRN PRN Reason: Pain scale 8-10 (Severe) Last Admin: 01/27/21 18:37 Dose: 1 mg Documented by: Meropenem 500 mg/ Sodium (Chloride) 500 mg in 100 mls @ 200 mls/hr IV Q12HR [facility] Last Admin: 01/27/21 10:26 Dose: 100 mls Documented by: Dextrose/Sodium Chloride (Dextrose 5% O.45% Saline) 1,000 mls @ 50 mls/hr IV .Q20H [facility] Last Admin: 01/27/21 10:13 Dose: Not Given Documented by: Insulin Human Isoph/Insulin Regular (Insulin 70/30 100 Units/Ml) 10 unit SQ BID 6AM 6PM [facility] Last Admin: 01/27/21 18:00 Dose: Not Given Documented by: Insulin Human Regular (Insulin -Regular Human 50 Unit/0.5 Ml Ml) 0 unit SQ Q6HR [facility]; Protocol Last Admin: 01/27/21 18:31 Dose: 2 unit Documented by: Lactobacillus Acidoph/Bulgaricus (Lactobacillus/Acidophilus Tab) 1 tab PO TID [facility] Last Admin: 01/27/21 14:00 Dose: Not Given Documented by: Methylprednisolone Sodium Succinate (Methylprednisolone 40 Mg Inj) 40 mg IV BID [facility] Last Admin: 01/27/21 10:28 Dose: 40 mg Documented by: Metoclopramide HCl (Metoclopramide 10 Mg/2ml Inj) 10 mg IV AC [facility] Last Admin: 01/27/21 18:31 Dose: 10 mg Documented by: Ondansetron HCl (Ondansetron 4 Mg/2 Ml Vial) 4 mg IV Q6HP PRN PRN Reason: NAUSEA / VOMITING Last Admin: 01/26/21 05:09 Dose: 4 mg Documented by: Pantoprazole Sodium (Pantoprazole 40 Mg Inj) 40 mg IVP DAILY [facility]; Protocol Last Admin: 01/27/21 09:00 Dose: 40 mg Documented by: Sodium Chloride (Flush Normal Saline 10 Ml) 10 ml IV BID [facility] Last Admin: 01/27/21 09:00 Dose: Not Given Documented by: Sodium Chloride (Sodium Chloride 0.9% 10ml Inj) 10 ml IV UD PRN PRN Reason: Diluant Assessment/ Plan: Nephrology No acute cardiac or pulmonary complaints. No CP or SOB. Nausea improving. +BM No acute events overnight. Vitals, medications, blood work and imaging reviewed in the chart. General: Oriented x3, Cooperative HEENT: Atraumatic Neck: Supple Respiratory: Diminished Cardiovascular: Regular rate/rhythm, Edema Gastrointestinal: Tender Musculoskeletal: No clubbing, No contractures Integumentary: No rashes, No cyanosis Neurological: Normal speech Laboratory Data (last 24 hrs) 01/16/21 23:20: WBC 16.20 H D, Hgb 10.7 L, Hct 33.5 L, Plt Count 306 01/16/21 23:20: Sodium 140, Potassium 3.9, BUN 60 H, Creatinine 3.06 H, Glucose 116 H, Total Bilirubin 0.5, AST 32, ALT 20, Alkaline Phosphatase 116, Lipase 69 L 01/16/21 23:06: WBC Cancelled, Hgb Cancelled, Hct Cancelled, Plt Count Cancelled 01/16/21 23:06: Sodium Cancelled, Potassium Cancelled, BUN Cancelled, Creatinine Cancelled, Glucose Cancelled, Total Bilirubin Cancelled, AST Cancelled, ALT Cancelled, Alkaline Phosphatase Cancelled, Lipase Imagings Data: EXAM DESCRIPTION: CT - Abdomen Pelvis Wo Contrast - 01/17/2021 5:05 am Head Brain Wo Cont CLINICAL HISTORY: 1 years Female TRAUMA COMPARISON: None. TECHNIQUE: Contiguous axial CT images obtained through the brain without IV contrast. This exam was performed according to our department optimization program which includes automated exposure control, adjustment of the mA and/or kv according to patient size and/or use of iterative reconstruction technique. FINDINGS: The ventricles and sulci appear unremarkable. No abnormal areas of decreased density are identified. No mass lesions. No acute hemorrhage. No fluid or significant mucosal thickening in the visualized paranasal sinuses. No depressed calvarial fractures. IMPRESSION: No acute intracranial abnormality is identified. Conclusions/Impression: CKD IV -No NSAIDs -Continue IVF D5 1/2NS Hypokalemia -Replete IV potassium prn Hypocalcemia -Continue Calcitriol HTN with CKD DM II with CKD -RISS Severe malnutrition -Advance nutrition as tolerated Anemia in chronic illness -Monitor H&H -Retacrit PRN Transverse colitis -Continue meropenem -Advance diet as tolerated -Continue probiotic -Continue steroids -Continue Reglan IV for possible DM gastroparesis Case reviewed with Dr. Rodriguez Plan for PICC line for abx and TPN
[2021-01-27] MEDS: ONDANSETRON 4 MG/2 ML VIAL IV PRN (22:58)
[2021-01-28] MEDS: INSULIN 70/30 100 UNITS/ML SQ SCH ×2 (04:31→18:12)
[2021-01-28] MEDS: ONDANSETRON 4 MG/2 ML VIAL IV PRN (04:35)
[2021-01-28] MEDS: HYDROMORPHONE HCL 1 MG/ML INJ IV PRN ×4 (04:35→21:35)
[2021-01-28 05:59] LABS: Absolute Lymphocytes (CBC) 0.4 K/uL (0.7-4.9); Basophils % 0.1 % (0-1.3); Hematocrit 29.4 % (36.0-45.0); Lymphocytes % 1.9 % (15.3-44.8); MPV 8.2 fL (7.6-11.3); RBC Red Blood Cell Count 3.26 M/uL (3.86-4.86)
[2021-01-28] MEDS: INSULIN -REGULAR HUMAN 50 UNIT/0.5 ML ML SQ SCH ×4 (06:00→18:00)
[2021-01-28] MEDS: D5 0.45 NS 1,000 ML IV SCH ×3 (06:13→18:37)
[2021-01-28 06:32] LABS: ALT/SGPT 9 U/L (12-78); AST/SGOT 10 U/L (15-37); Albumin 1.8 g/dL (3.4-5.0); BUN Blood Urea Nitrogen 60 mg/dL (7-18); Bicarbonate 19 mmol/L (21-32); Bilirubin Total 0.5 mg/dL (0.2-1.0); Glucose Level 237 mg/dL (74-106); Magnesium 2.1 mg/dL (1.8-2.4); Potassium 3.9 mmol/L (3.5-5.1); Protein, Total 5.3 g/dL (6.4-8.2); Sodium Level 139 mmol/L (136-145)
[2021-01-28 07:20] LABS: Alkaline Phosphatase ND U/L (45-117)
--- NOTE | 2021-01-28 07:50 | P.PN ---
Date of Service: 01/28/21 Vital Signs Temp Pulse Resp BP Pulse Ox 97.4 F 89 16 123/59 L 91 01/28/21 04:00 01/28/21 04:00 01/28/21 04:00 01/28/21 04:00 01/28/21 04:00 Medications Acetaminophen (Acetaminophen 500 Mg Tab) 500 mg PO Q4HP PRN PRN Reason: TEMP > 100' F Last Admin: 01/22/21 22:26 Dose: 500 mg Documented by: Calcitriol (Calcitrol 0.25 Mcg Cap) 0.5 mcg PO DAILY [facility] Last Admin: 01/27/21 09:00 Dose: 0.5 mcg Documented by: Cholecalciferol (Vitamin D 5,000 Unit Cap) 5,000 unit PO DAILY [facility] Last Admin: 01/27/21 10:28 Dose: 5,000 unit Documented by: Dextrose (D50w 25 Gm/50 Ml Vial) 12.5 gm IV PRN PRN; Protocol PRN Reason: HYPOGLYCEMIA Enteral Nutritional Formula (Ensure Clear 200 Ml Can) 237 ml PO BID [facility] Last Admin: 01/27/21 21:00 Dose: Not Given Documented by: Glucagon (Glucagon 1 Mg/Vial) 1 mg IM 1X PRN; Protocol PRN Reason: HYPOGLYCEMIA Heparin Sodium (Porcine) (Heparin 5000 Unit/Ml 1 Ml Vial) 5,000 unit SQ Q12HR [facility] Last Admin: 01/27/21 22:46 Dose: 5,000 unit Documented by: Hydralazine HCl (Hydralazine Hcl 20 Mg/Ml Vial) 10 mg IV Q6HP PRN PRN Reason: Titrate to SBP (MUST DEFINE) Last Admin: 01/23/21 19:12 Dose: 10 mg Documented by: Hydromorphone HCl (Hydromorphone Hcl 1 Mg/Ml Inj) 1 mg IV Q4H PRN PRN Reason: Pain scale 8-10 (Severe) Last Admin: 01/28/21 04:35 Dose: 1 mg Documented by: Meropenem 500 mg/ Sodium (Chloride) 500 mg in 100 mls @ 200 mls/hr IV Q12HR [facility] Last Admin: 01/27/21 22:46 Dose: 100 mls Documented by: Dextrose/Sodium Chloride (Dextrose 5% O.45% Saline) 1,000 mls @ 75 mls/hr IV .[id number] [facility] Albumin Human (Albumin 25%) 200 mls @ 100 mls/hr IV Q8H [facility] Stop: 01/28/21 17:59 Insulin Human Isoph/Insulin Regular (Insulin 70/30 100 Units/Ml) 10 unit SQ BID 6AM 6PM [facility] Last Admin: 01/28/21 04:31 Dose: Not Given Documented by: Insulin Human Regular (Insulin -Regular Human 50 Unit/0.5 Ml Ml) 0 unit SQ Q6HR [facility]; Protocol Last Admin: 01/28/21 06:00 Dose: Not Given Documented by: Lactobacillus Acidoph/Bulgaricus (Lactobacillus/Acidophilus Tab) 1 tab PO TID [facility] Last Admin: 01/27/21 22:46 Dose: 1 tab Documented by: Methylprednisolone Sodium Succinate (Methylprednisolone 40 Mg Inj) 40 mg IV BID [facility] Last Admin: 01/27/21 22:46 Dose: 40 mg Documented by: Metoclopramide HCl (Metoclopramide 10 Mg/2ml Inj) 10 mg IV AC [facility] Last Admin: 01/27/21 18:31 Dose: 10 mg Documented by: Ondansetron HCl (Ondansetron 4 Mg/2 Ml Vial) 4 mg IV Q6HP PRN PRN Reason: NAUSEA / VOMITING Last Admin: 01/28/21 04:35 Dose: 4 mg Documented by: Pantoprazole Sodium (Pantoprazole 40 Mg Inj) 40 mg IVP DAILY [facility]; Protocol Last Admin: 01/27/21 09:00 Dose: 40 mg Documented by: Sodium Chloride (Flush Normal Saline 10 Ml) 10 ml IV BID [facility] Last Admin: 01/27/21 21:00 Dose: Not Given Documented by: Sodium Chloride (Sodium Chloride 0.9% 10ml Inj) 10 ml IV UD PRN PRN Reason: Diluant Assessment/ Plan: Nephrology No acute cardiac or pulmonary complaints. No CP or SOB. Nausea improving. +BM No acute events overnight. Vitals, medications, blood work and imaging reviewed in the chart. General: Oriented x3, Cooperative HEENT: Atraumatic Neck: Supple Respiratory: Diminished Cardiovascular: Regular rate/rhythm, Edema Gastrointestinal: Tender Musculoskeletal: No clubbing, No contractures Integumentary: No rashes, No cyanosis Neurological: Normal speech [place] Laboratory Data (last 24 hrs) 01/16/21 23:20: WBC 16.20 H D, Hgb 10.7 L, Hct 33.5 L, Plt Count 306 01/16/21 23:20: Sodium 140, Potassium 3.9, BUN 60 H, Creatinine 3.06 H, Glucose 116 H, Total Bilirubin 0.5, AST 32, ALT 20, Alkaline Phosphatase 116, Lipase 69 L 01/16/21 23:06: WBC Cancelled, Hgb Cancelled, Hct Cancelled, Plt Count Cancelled 01/16/21 23:06: Sodium Cancelled, Potassium Cancelled, BUN Cancelled, Creatinine Cancelled, Glucose Cancelled, Total Bilirubin Cancelled, AST Cancelled, ALT Cancelled, Alkaline Phosphatase Cancelled, Lipase Imagings Data: EXAM DESCRIPTION: CT - Abdomen Pelvis Wo Contrast - 01/17/2021 5:05 am Head Brain Wo Cont CLINICAL HISTORY: 1 years Female TRAUMA COMPARISON: None. TECHNIQUE: Contiguous axial CT images obtained through the brain without IV contrast. This exam was performed according to our department optimization program which includes automated exposure control, adjustment of the mA and/or kv according to patient size and/or use of iterative reconstruction technique. FINDINGS: The ventricles and sulci appear unremarkable. No abnormal areas of decreased density are identified. No mass lesions. No acute hemorrhage. No fluid or significant mucosal thickening in the visualized paranasal sinuses. No depressed calvarial fractures. IMPRESSION: No acute intracranial abnormality is identified. Conclusions/Impression: CKD IV -No NSAIDs -Increase IVF 100 ml/hr Hypokalemia -Replete IV potassium prn Acidosis -Start oral bicarb Hypocalcemia -Continue Calcitriol HTN with CKD DM II with CKD -RISS Severe malnutrition -Advance nutrition as tolerated -Give IV Albumin today Anemia in chronic illness -Monitor H&H -Give Retacrit today Transverse colitis -Continue meropenem -Advance diet as tolerated -Continue probiotic -Continue steroids -Continue Reglan IV for possible DM gastroparesis Plan for PICC line for abx and TPN
[2021-01-28] MEDS: ALBUMIN HUMAN 25% 200 ML IV SCH ×2 (08:00→16:12)
[2021-01-28] MEDS ORDERED: EPOETIN ALFA-EPBX 10,000 UNIT/ML VIAL SQ ONE (08:00)
[2021-01-28] MEDS ORDERED: D5 0.45 NS 1,000 ML IV SCH (08:00)
[2021-01-28] MEDS: MEROPENEM IV SCH ×2 (09:00→20:16)
[2021-01-28] MEDS: PANTOPRAZOLE 40 MG INJ IVP SCH (09:00)
[2021-01-28] MEDS: NA CHLORIDE IV SCH ×2 (09:00→20:16)
[2021-01-28] MEDS: CALCITROL 0.25 MCG CAP PO SCH (09:00)
[2021-01-28] MEDS: ENSURE CLEAR 200 ML CAN PO SCH ×2 (09:00→20:16)
[2021-01-28] MEDS: LACTOBACILLUS/ACIDOPHILUS TAB PO SCH ×3 (09:00→20:16)
[2021-01-28] MEDS: METHYLPREDNISOLONE 40 MG INJ IV SCH ×2 (09:59→20:15)
[2021-01-28] MEDS: METOCLOPRAMIDE 10 MG/2mL INJ IV SCH ×3 (09:59→16:16)
[2021-01-28] MEDS: VITAMIN D 5,000 UNIT CAP PO SCH (10:02)
[2021-01-28] MEDS: SODIUM BICARB 325 MG TAB PO SCH ×2 (10:02→17:00)
[2021-01-28] MEDS: HEPARIN 5000 UNIT/ML 1 ML VIAL SQ SCH ×2 (10:04→20:16)
[2021-01-28 11:23] LABS: Blood Morphology Comment NOT SEEN (NOT SEEN); Platelet Estimate ADEQ; White Blood Cell Scan OK (OK)
--- NOTE | 2021-01-28 13:32 | RAD REPORT ---
EXAM DESCRIPTION: CT - Abdomen Pelvis Wo Contrast - 01/28/2021 10:34 am CLINICAL HISTORY: Abdominal pain COMPARISON: January 24, 2021 TECHNIQUE: Computed axial tomography of the abdomen and pelvis was obtained. IV and oral contrast we re not requested. All CT scans are performed using dose optimization technique as appropriate and may include automated exposure control or mA/KV adjustment according to patient size. FINDINGS: The evaluation of solid organs, vessels and bowel is limited secondary to the lack of con trast administration. Marked gastric distention. The esophagus is distended and fluid-filled. The wall of the proximal transverse colon moderately thickened. Nodularity involves the greater oment um. The liver, spleen, pancreas and right adrenal gland appear grossly normal. Kidneys are small. Small left adrenal nodule are unchanged. Paulson catheter within the bladder. Small amount of ascites within the abdomen. Small to moderate amount of ascites within the pelvis. Di ffuse edema within the subcutaneous tissues. Small left pleural effusion Mild left lower lobe opacities IMPRESSION: Moderate thickening of the wall of the proximal transverse colon without significant raf nge from the prior examination. Given that there is nodularity involving the greater omentum this cou ld indicate carcinoma with carcinomatosis. Inflammation is a another consideration. Marked gastric distention. Fluid within a distended esophagus probably related to reflux Mild left lower lobe opacities may indicate pneumonia
[2021-01-28] MEDS ORDERED: DEXTROSE 10%-WATER 500 ML IV SCH (15:00)
--- NOTE | 2021-01-28 16:23 | P.PN ---
Subjective Date of Service: 01/28/21 Primary Care Provider: Dr. Watkins Chief Complaint: Colitis Subjective: Worsening (abdomen distended, with pain, no vomiting, no nausea. patient feels worse today. urinary retention overnight, park placed) Review of Systems 10-point ROS is otherwise unremarkable Physical Examination - Vital Signs Temperature: 97.7 F Blood Pressure: 121/58 Pulse: 95 Respirations: 18 Pulse Ox (%): 95 Assessment & Plan Physician Review Additional Text: Physical Exam General: mild-mod distress with intermittent pain HEENT: dry mucous membranes, normal conjunctiva, sclera anicteric Respiratory: Clear to auscultation bilaterally, diminished at bases bilaterally Cardiovascular: Regular rate/rhythm, Normal S1 S2, 2+ BLE edema Gastrointestinal: Hypoactive, mod distention, mod TTP in RUQ/epigastrium, mild TTP in LUQ Musculoskeletal: No tenderness Integumentary: No rashes, No erythema Problem List: acute transverse Colitis gastric distention Acute renal failure superimposed on stage 3 chronic kidney disease Diabetes mellitus, type 2; non-insulin dependent Hypertension transverse colitis - infectious vs inflammatory - had leukocytosis, lactic acidosis and mild elevation in procal on admission continue NPO until pain resolved and no nausea Abx broadened to merrem - ID consulted and agreed, added 1x vancomycin on 01/26 She is s/p cholecystectomy, no biliary duct stone or significant biliary dilatation. Repeat CT abdomen/pelvis on 01/24 - transverse colitis more involved, distended stomach, however duodenum is non-distended patient continues with symptoms, CT obtained today with no significant change, has marked gastric distention, concern for possible carcinoma General surgery consulted- no surgical intervention at this time, no GI jamilah ilable, recommend transfer to tertiary care center nephrology consulted for ABEL on CKID, on IVF, with acidosis Insulin sliding scale for glucose management. adjusting long-acting as needed PICC ordered, advice nurse consulted for TPN - pt hasn't eaten much in nearly 9-10 days leukocytosis partly due to steroids and colitis, procal remains elevated, CRP elevated weaning steroids reglan for gastroparesis Code: full dispo: anticipate hospitalization > [address] findings with surgery, recommend transfer to tertiary care center for GI coverage. No GI coverage here at this time. Could benefit from EGD/C-scope and further evaluation Time Spent Managing Pts Care (In Minutes): 40
--- NOTE | 2021-01-28 16:34 | RAD REPORT ---
EXAM DESCRIPTION: RAD - Chest Single View - 01/28/2021 4:27 pm CLINICAL HISTORY: NGT placement Chest pain. COMPARISON: <Comparisons> FINDINGS: Portable technique limits examination quality. Tip of the enteric tube is in the stomach.
[2021-01-28] MEDS ORDERED: AA 5%/D20W/ELECTROLYTES-TPN 2,000 ML, Lipids 20% 250 ML with MULTIVITAMINS INJ 10 ML IV SCH ×3 (17:00)
[2021-01-28] MEDS: HYDRALAZINE HCL 20 MG/ML VIAL IV PRN (20:44)
--- NOTE | 2021-01-28 22:12 | P.DS ---
Admission Date: 01/17/21 Discharge Date: 01/28/21 Primary Care Provider: Dr. Watkins Disposition: TRANSFER TO [facility] Discharge Condition: FAIR Reason for Admission: Colitis Consultations: General surgery-Dr. Rosales Nephrology-Dr. Watkins Procedures: CT abdomen pelvis (most recent) FINDINGS: The evaluation of solid organs, vessels and bowel is limited secondary to the lack of contrast administration. Marked gastric distention. The esophagus is distended and fluid-filled. The wall of the proximal transverse colon moderately thickened. Nodularity involves the greater omentum. The liver, spleen, pancreas and right adrenal gland appear grossly normal. Kidneys are small. Small left adrenal nodule are unchanged. Paulson catheter within the bladder. Small amount of ascites within the abdomen. Small to moderate amount of ascites within the pelvis. Diffuse edema within the subcutaneous tissues. Small left pleural effusion Mild left lower lobe opacities IMPRESSION: Moderate thickening of the wall of the proximal transverse colon without significant change from the prior examination. Given that there is nodularity involving the greater omentum this could indicate carcinoma with carcinomatosis. Inflammation is a another consideration. Marked gastric distention. Fluid within a distended esophagus probably related to reflux Mild left lower lobe opacities may indicate pneumonia Chest x-ray (most recent) FINDINGS: Portable technique limits examination quality. Tip of the enteric tube is in the stomach. Liver ultrasound FINDINGS: The liver has a mildly increased echotexture. Hepatopetal flow. A lesion is not visualized. Mild dilatation of the intrahepatic biliary tree The spleen measures 9 centimeters. IMPRESSION: Mildly ncreased hepatic echotexture may indicate mild infiltration. Mild dilatation intrahepatic biliary tree Unremarkable ultrasound spleen Medical problem list acute transverse Colitis gastric distention Acute renal failure superimposed on stage 3 chronic kidney disease Diabetes mellitus, type 2; non-insulin dependent Hypertension Brief History of Present Illness: 70-year-old female with history of diabetes mellitus type 2, hypertension, blindness, CKD presents emergency department for abdominal pain, nausea and vomiting. Patient reports that she has been having difficulty keeping down solid foods for the past 2-3 weeks and then only taking in clear liquids with some abdominal pain still present. Patient evaluated in the ER labs significant for a white blood cell count 16 point to hemoglobin 10.7 hematocrit 33.5 creatinine 3.06 GFR 15, baseline GFR appears to be around between [address] demonstrates transverse colitis. Patient reports last bowel movement approximately 1 week ago but also not eating well this time. ED provider wishes to admit patient for further evaluation and management. Hospital Course: Patient was admitted 11 days prior for colitis, patient's white blood cell count began to climb in the 2nd through 4th days admission with white blood cell count as high as 26. Patient with nausea and vomiting, not able to tolerate p.o. throughout the admission. CT without changes, no improvement noted, differentials on CT noted to be infectious/inflammatory/malignant changes of the transverse colon. Patient was treated with aggressive IV antibiotic therapy with meropenem and vancomycin. Infectious disease, general surgery, nephrology all saw the patient. Blood cultures were negative, patient was without clinical improvement throughout hospitalization. Case was again discussed with General Surgery after repeat CT scan was performed who recommended evaluation by GI which is not available here at our facility. Recommendation was for transfer to tertiary center for GI evaluation as patient is not clinically improving with maximal noninvasive treatment. This was discussed with family and patient who are amenable with plan of care. The discharge patient's vital signs were stable, patient is with Paulson catheter, NGT low intermittent wall suction at this time. Appreciate help from team at [facility]. Vital Signs/Physical Exam: Temp Pulse Resp BP Pulse Ox 97.0 F 97 H 18 113/78 94 01/28/21 21:34 01/28/21 21:34 01/28/21 21:34 01/28/21 21:34 01/28/21 21:34 General: Alert, In no apparent distress HEENT: Atraumatic, PERRLA, EOMI Neck: Supple, JVD not distended Respiratory: Clear to auscultation bilaterally, Normal air movement Cardiovascular: Regular rate/rhythm, Normal S1 S2 Gastrointestinal: Normal bowel sounds, Tenderness (Generalized abdominal tenderness), Rebound, Guarding Musculoskeletal: No tenderness Integumentary: No rashes Neurological: Normal speech, Normal tone, Normal affect Laboratory Data at Discharge: WBC 21.20 K/uL (4.3-10.9) H* 01/28/21 05:29 Hgb 9.6 g/dL (12.0-15.0) L 01/28/21 05:29 Hct 29.4 % (36.0-45.0) L D 01/28/21 05:29 Plt Count 180 K/uL (152-406) 01/28/21 05:29 Sodium 139 mmol/L (136-145) 01/28/21 05:29 Potassium 3.9 mmol/L (3.5-5.1) 01/28/21 05:29 BUN 60 mg/dL (7-18) H 01/28/21 05:29 Creatinine 3.57 mg/dL (0.55-1.3) H 01/28/21 05:29 Glucose 237 mg/dL (74-106) H 01/28/21 05:29 Uric Acid 8.7 mg/dL (2.6-6.0) H 01/26/21 04:18 Phosphorus 3.4 mg/dL (2.5-4.9) 01/26/21 04:18 Magnesium 2.1 mg/dL (1.8-2.4) 01/28/21 05:29 Total Bilirubin 0.5 mg/dL (0.2-1.0) 01/28/21 05:29 AST 10 U/L (15-37) L 01/28/21 05:29 ALT 9 U/L (12-78) L 01/28/21 05:29 Alkaline Phosphatase ND 01/28/21 05:29 Troponin I < 0.02 ng/mL (0.0-0.045) 01/24/21 19:45 Triglycerides 108 mg/dL (<150) 01/18/21 05:59 Cholesterol 99 mg/dL (<200) 01/18/21 05:59 HDL Cholesterol 34 mg/dL (40-60) L 01/18/21 05:59 Cholesterol/HDL Ratio 2.91 01/18/21 05:59 Lipase 230 U/L (73-393) 01/25/21 06:33 Home Medications: Bumetanide [Bumex*] 1 mg PO DAILY 07/25/19 Sitagliptin Phosphate [Januvia*] 50 mg PO DAILY 07/25/19 Bumetanide [Bumex] 1 mg PO DAILY 01/17/21 Docusate [Colace Cap*] 100 mg PO DAILY 01/17/21 Escitalopram Oxalate [Lexapro] 5 mg PO DAILY 01/17/21 Ondansetron [Zofran (Odt)*] 4 mg PO PRN PRN 01/17/21 Pioglitazone HCl 30 mg PO DAILY 01/17/21 Physician Discharge Instructions: Please continue with care at [facility]. Diet: NPO Followup: Unknown,U [Primary Care Provider] - Time spent managing pt's care (in minutes): 55
[2021-01-28 22:29] VITALS: O2SAT 97
[2021-01-29] MEDS ORDERED: GLUCAGON 1 MG/VIAL IM PRN (00:03)
[2021-01-29] MEDS ORDERED: D50W 25 GM/50 ML SYRINGE IV PRN (00:03)
[2021-01-29] MEDS ORDERED: INSULIN -REGULAR HUMAN 50 UNIT/0.5 ML ML IV ONE (00:03)
[2021-01-29 00:16] VITALS: BP 144/63; TEMP 97.9
[2021-01-29] MEDS: INSULIN -REGULAR HUMAN 50 UNIT/0.5 ML ML SQ SCH (00:16)
[2021-01-29] MEDS ORDERED: INSULIN -REGULAR HUMAN 50 UNIT/0.5 ML ML IV STA (01:40)
== END 2021-01-29 02:22 | disposition short-term general hospital (02) | DRG 391 ==
LOC: ER 22:13 → ERHOLD 01-17 03:54 → 2ND 01-17 04:06
PROVIDERS: ADMIT Hospitalist; ATTEND Hospitalist
PROC: 3E0336Z Introduction of Nutritional Substance into Peripheral Vein, Percutaneous Approach (ICD-10-PCS; principal; 2021-01-26)
PROC: 02HV33Z Insertion of Infusion Device into Superior Vena Cava, Percutaneous Approach (ICD-10-PCS; 2021-01-27)
DX: K52.9 Noninfective gastroenteritis and colitis, unspecified (principal); N17.0 Acute kidney failure with tubular necrosis; E43 Unspecified severe protein-calorie malnutrition; E87.2 Acidosis; I12.9 Hypertensive chronic kidney disease with stage 1 through stage 4 chronic kidney disease, or unspecified chronic kidney disease; N18.30 Chronic kidney disease, stage 3 unspecified; E11.22 Type 2 diabetes mellitus with diabetic chronic kidney disease; E11.51 Type 2 diabetes mellitus with diabetic peripheral angiopathy without gangrene; E11.649 Type 2 diabetes mellitus with hypoglycemia without coma; D72.829 Elevated white blood cell count, unspecified; E86.0 Dehydration; E83.51 Hypocalcemia; D63.8 Anemia in other chronic diseases classified elsewhere; E87.6 Hypokalemia; K59.00 Constipation, unspecified; R59.1 Generalized enlarged lymph nodes; K31.89 Other diseases of stomach and duodenum; Z79.899 Other long term (current) drug therapy; Z68.29 Body mass index [BMI] 29.0-29.9, adult; Z89.411 Acquired absence of right great toe; Z90.49 Acquired absence of other specified parts of digestive tract; Z20.822 Contact with and (suspected) exposure to COVID-19
CPT/HCPCS: 36415; 36569; 71045; 74176; 74177; 76705; 80048; 80053; 80061; 80076; 81003; 81015; 82947; 83605; 83690; 83735; 84100; 84132; 84145; 84439; 84443; 84484; 84550; 85025; 86140; 86850; 86900; 86901; 87040; 87086; 87088; 93005; 96365; 96375; 97110; 97161; 97530; 99285; C9113; J0360; J0692; J0696; J1170; J1644; J1815; J2185; J2270; J2405; J2765; J2920; J3370; J3480; J7030; J7040; J7799; P9047; Q5106; Q9967; U0003